=== PATIENT | male | born 1950 | race Caucasian/White ===

== ENCOUNTER 2020-02-13 16:47 | Inpatient (IN) | payer MEDICARE, MEDICAID, SELFPAY ==
--- NOTE | 2020-02-13 17:35 | XR_ITS ---
EXAMINATION: XR CHEST CLINICAL INFORMATION: Shortness of breath. Question COVID. COMPARISON: Chest radiograph dated 10/14/2017. TECHNIQUE: Frontal view of the chest was obtained. FINDINGS: Hypoinflation of the lungs with patchy bilateral airspace opacities. No pleural effusion or pneumothorax. Stable cardiomediastinal silhouette. XR/XR chest 1V IMPRESSION: Hypoinflation of the lungs with patchy bilateral airspace opacities. Findings can be seen in the setting of an infectious or inflammatory process, including viral pneumonia.
--- NOTE | 2020-02-13 17:35 | ECG_ITS ---
Test Reason : DYAPHORESIS Blood Pressure : / mmHG Vent. Rate : 076 BPM Atrial Rate : 076 BPM P-R Int : 224 ms QRS Dur : 080 ms QT Int : 402 ms P-R-T Axes : 039 -18 123 degrees QTc Int : 452 ms Sinus rhythm with 1st degree A-V block Inferior infarct (cited on or before 20-SEP-2013) T wave abnormality, consider lateral ischemia Abnormal ECG When compared with ECG of 13-FEB-2020 16:52, Premature ventricular complexes are no longer Present Referred By: Camron Chou Electronically Signed By:THONG WILKINS MD
[2020-02-13 17:36] VITALS: BP 159/85; PULSE 74; RESP 18; TEMP 37.2; O2SAT 96
[2020-02-13 17:51] VITALS: PULSE 73; O2SAT 100
[2020-02-13] MEDS: Albuterol Sulfate 90 MCG 8 GM INHALER 4 PUFF INHALE (17:51)
--- NOTE | 2020-02-13 17:55 | ED.SOB ---
HPI - SOB/Dyspnea General Chief Complaint: Dyspnea Stated Complaint: Difficulty Breathing Time Seen by Provider: 02/13/20 17:35 Source: patient Mode of arrival: ambulatory Limitations: no limitations History of Present Illness HPI Narrative: patient no significant lung problems in the past comes here for 2 weeks of worsening of shortness of breath with dry cough body aches fatigue. Patient denies anyone at home already with COVID. Patient was saturating 96% at room air temperature of 99 degree F patient does have a history of ischemic cardiomyopathy status post CABG 3 vessels with ejection fraction of 35% in echo of 2016 MD elicited complaint: shortness of breath and cough Onset (ago): week(s) (2) Severity: moderate Exacerbating factors: coughing Relieving factors: nothing Related Data Home Medications Medication Instructions Recorded Confirmed acetaminophen 1 tab PO Q6H PRN 02/13/20 02/13/20 insulin glargine [Lantus Solostar See Protocol SUBCUT DAILY 02/13/20 02/13/20 U-100 Insulin] lancets [FreeStyle Lancets] 02/13/20 02/13/20 lisinopril 1 tab PO BEDTIME 02/13/20 02/13/20 nitrofurantoin monohyd/m-cryst 1 cap PO Q12H 02/13/20 02/13/20 pen needle, diabetic [BD 02/13/20 02/13/20 Ultra-Fine Tamera Pen Needle] Previous Rx's Medication Instructions Recorded carvedilol 25 mg tablet 25 mg PO BID 90 Days #180 tab 01/05/20 Allergies Allergy/AdvReac Type Severity Reaction Status Date / Time No Known Allergies Allergy Unverified 12/09/19 18:14 [No Known Allergies*] Review of Systems Review of Systems: REVIEW OF SYSTEMS: Pertinent positives and negatives are stated above in the history. GEN: no fevers, chills, fatigue +++ HEENT: no nasal congestion, sore throat, ear pain NEURO: no headache, dizziness, focal weakness PULM: per HPI CV: no chest pain, palpitations, LE edema ABD: no abdominal pain, nausea, vomiting, diarrhea : no dysuria, urgency, frequency SKIN: no rash ROS otherwise negative x 10 PMFSH Past Medical History Medical History Ischemic cardiomyopathy Social History Social History Alcohol intake: never Smoked in Last 30 Days: No Use of substances other than those prescribed or required for medical reasons: No Advance Directives: No Advance Directives Information Provided: No Physical Exam Vital Signs: Vital Signs: Last Vital Signs Temp 97.6 F 02/14/20 00:19 Pulse 84 02/14/20 00:19 Resp 20 02/14/20 00:19 BP 170/86 H 02/14/20 00:19 Pulse Ox 99 02/14/20 00:19 Const: General: cooperative, healthy appearing, no acute distress and other ( dry cough++) Nutritional Appearance: average body habitus Orientation/consciousness: oriented to person, oriented to place and oriented to time Limitations: no limitations HENMT: Head: Yes normal to inspection Ears: hearing grossly normal bilaterally General nose exam: Normal external nose present Eyes: General: appearance normal, both eyes and all related structures Neck: Lymphatic: no lymphadenopathy noted Resp: Effort & Inspection: normal respiratory effort and able to speak in complete sentences Auscultation: crackles ( scattered crackles bilateral) bilateral, rhonchi, wheezes and no bronchial breath sounds Percussion: percussion normal Cardio: Rate: regular rate Rhythm: regular rhythm Heart sounds: S1 normal heart sound present and S2 normal heart sound present Peripheral pulses: Peripheral pulses 2+ throughout GI: Inspection: Yes normal to inspection Palpation (GI): Soft to palpation, Firmness to palpation present (GI), nontender and No hepatosplenomegaly present : General: Yes no CVA tenderness Back/Spine/Pelvis: Back: no CVA tenderness Thoracic/Lumbar Spine: thoracic and lumbar spine normal to inspection Skin: General skin exam: no rashes or lesions noted Neuro: General: oriented to person, oriented to place and oriented to time Extrem: General: Yes edema (2+) Course Reevaluation(s) Reevaluation #1: patient complaining of increased shortness of breath diaphoretic bus monitor showed sinus bradycardia with heart rate of 30s patient was very restless and dyspneic lung exam showed diffuse wheezing patient also did complain of chest pain repeat the EKG given nebulizing treatment and Lasix 40 mg IVP Time: 19:30 MDM - SOB/Dyspnea MDM Narrative Medical decision making narrative: patient with progressive worsening of shortness of breath for last 2 weeks chest x-ray with possible infiltrate CT scan showed interstitial edema patient WBC count has a normal COVID is negative in elevated BNP suggestive of CHF also patient has significant leg swelling will admit patient for IV diuretics Differential Diagnosis Differential diagnosis: Likely congestive heart failure and pneumonia Medical Records Attestation: I reviewed the patient's medical records. Lab Data Attestation: I reviewed the patient's lab results. Result diagrams: 02/13/20 18:21 02/13/20 18:21 Labs: Lab Results 02/13/20 02/13/20 02/13/20 Range/Units 18:21 18:21 18:21 WBC 8.0 (4.8-10.8) X10*3/uL RBC 4.25 L (4.60-5.80) X10*6/uL Hgb 10.7 L (14.0-18.0) g/dl Hct 35.2 L (42-52) % MCV 82.8 (80-98) fL MCH 25.2 L (27.0-33.0) pg MCHC 30.4 L (31.0-36.0) g/dl RDW 15.0 (11.0-16.0) % Plt Count 205 (160-400) X10*3/uL MPV 12.5 H (9.4-12.4) fL Immature Gran % (Auto) 0.1 (0.0-0.4) % Neut % (Auto) 64.7 (45-73) % Lymph % (Auto) 20.9 (20-40) % [place] % (Auto) 9.8 (2-11) % Eos % (Auto) 4.1 H (0-4) % Baso % (Auto) 0.4 (0-2) % Lymph # (Auto) 1.7 (1.2-4.9) X10*3/uL [place] # (Auto) 0.8 (0.1-1.2) X10*3/uL Eos # (Auto) 0.3 (0.0-0.4) X10*3/uL Baso # (Auto) 0.0 (0.0-0.2) X10*3/uL Abs Immat Gran (auto) 0.01 (0.00-0.03) X10*3/uL Absolute Neuts (auto) 5.2 (2.0-8.3) X10*3/uL Absolute Nucleated RBC 0.000 (0.0-0.012) X10*3/uL Nucleated RBC % (auto) 0.0 (0.0-0.2) /100WBC D-Dimer 332 NG/ML Hold Blue Top SEE NOTE Sodium 140 (135-145) mmol/L Potassium 4.9 (3.3-5.1) mmol/l Chloride 108 (96-108) mmol/L Carbon Dioxide 23 (22-29) mmol/L Anion Gap 14 (12-20) BUN 41 H (9-16) mg/dL Creatinine 2.08 H (0.5-1.4) mg/dL Estim Creat Clear Calc TNP Estimated GFR 32 Random Glucose 289 H (60-115) mg/dL Lactic Acid (0.5-2.0) mmol/L Calcium 8.8 (8.4-10.2) mg/dL Troponin I High Sens (<3.5-35.0) ng/L B-Natriuretic Peptide (<100) pg/mL Coronavirus (PCR) (Negative) Influenza Type A (PCR) (Negative) Influenza Type B (PCR) (Negative) RSV RNA Qual (PCR) (Negative) 02/13/20 02/13/20 02/13/20 Range/Units 18:21 18:21 18:22 WBC (4.8-10.8) X10*3/uL RBC (4.60-5.80) X10*6/uL Hgb (14.0-18.0) g/dl Hct (42-52) % MCV (80-98) fL MCH (27.0-33.0) pg MCHC (31.0-36.0) g/dl RDW (11.0-16.0) % Plt Count (160-400) X10*3/uL MPV (9.4-12.4) fL Immature Gran % (Auto) (0.0-0.4) % Neut % (Auto) (45-73) % Lymph % (Auto) (20-40) % [place] % (Auto) (2-11) % Eos % (Auto) (0-4) % Baso % (Auto) (0-2) % Lymph # (Auto) (1.2-4.9) X10*3/uL [place] # (Auto) (0.1-1.2) X10*3/uL Eos # (Auto) (0.0-0.4) X10*3/uL Baso # (Auto) (0.0-0.2) X10*3/uL Abs Immat Gran (auto) (0.00-0.03) X10*3/uL Absolute Neuts (auto) (2.0-8.3) X10*3/uL Absolute Nucleated RBC (0.0-0.012) X10*3/uL Nucleated RBC % (auto) (0.0-0.2) /100WBC D-Dimer NG/ML Hold Blue Top Sodium (135-145) mmol/L Potassium (3.3-5.1) mmol/l Chloride (96-108) mmol/L Carbon Dioxide (22-29) mmol/L Anion Gap (12-20) BUN (9-16) mg/dL Creatinine (0.5-1.4) mg/dL Estim Creat Clear Calc Estimated GFR Random Glucose (60-115) mg/dL Lactic Acid 0.7 (0.5-2.0) mmol/L Calcium (8.4-10.2) mg/dL Troponin I High Sens 13.1 (<3.5-35.0) ng/L B-Natriuretic Peptide 410 H (<100) pg/mL Coronavirus (PCR) NEGATIVE (Negative) Influenza Type A (PCR) NEGATIVE (Negative) Influenza Type B (PCR) NEGATIVE (Negative) RSV RNA Qual (PCR) NEGATIVE (Negative) 02/13/20 Range/Units 21:26 WBC (4.8-10.8) X10*3/uL RBC (4.60-5.80) X10*6/uL Hgb (14.0-18.0) g/dl Hct (42-52) % MCV (80-98) fL MCH (27.0-33.0) pg MCHC (31.0-36.0) g/dl RDW (11.0-16.0) % Plt Count (160-400) X10*3/uL MPV (9.4-12.4) fL Immature Gran % (Auto) (0.0-0.4) % Neut % (Auto) (45-73) % Lymph % (Auto) (20-40) % [place] % (Auto) (2-11) % Eos % (Auto) (0-4) % Baso % (Auto) (0-2) % Lymph # (Auto) (1.2-4.9) X10*3/uL [place] # (Auto) (0.1-1.2) X10*3/uL Eos # (Auto) (0.0-0.4) X10*3/uL Baso # (Auto) (0.0-0.2) X10*3/uL Abs Immat Gran (auto) (0.00-0.03) X10*3/uL Absolute Neuts (auto) (2.0-8.3) X10*3/uL Absolute Nucleated RBC (0.0-0.012) X10*3/uL Nucleated RBC % (auto) (0.0-0.2) /100WBC D-Dimer NG/ML Hold Blue Top Sodium (135-145) mmol/L Potassium (3.3-5.1) mmol/l Chloride (96-108) mmol/L Carbon Dioxide (22-29) mmol/L Anion Gap (12-20) BUN (9-16) mg/dL Creatinine (0.5-1.4) mg/dL Estim Creat Clear Calc Estimated GFR Random Glucose (60-115) mg/dL Lactic Acid (0.5-2.0) mmol/L Calcium (8.4-10.2) mg/dL Troponin I High Sens 13.2 (<3.5-35.0) ng/L B-Natriuretic Peptide (<100) pg/mL Coronavirus (PCR) (Negative) Influenza Type A (PCR) (Negative) Influenza Type B (PCR) (Negative) RSV RNA Qual (PCR) (Negative) ECG Data Attestation: I personally reviewed and interpreted this ECG as follows: Prior ECG tracings: available for review Interpretation: normal sinus rhythm with ventricular rate of 78 with PACs nonspecific T-wave abnormality in lateral leads Q-waves in inferior leads no acute change from the old EKG impression no acute ischemia Discharge Plan Discharge Clinical Impression: Congestive heart failure Qualifiers: Heart failure type: combined systolic and diastolic Heart failure chronicity: acute on chronic Qualified Code(s): I50.43 - Acute on chronic combined systolic (congestive) and diastolic (congestive) heart failure Patient Disposition: Admitted As Inpatient Interventions: Admission Worksheet (ED) Last Done: 02/14/20 00:15 Discharge Date/Time: 02/14/20 00:15
[2020-02-13 18:07] VITALS: BP 149/86; PULSE 72; RESP 20; TEMP 37.1; O2SAT 95
[2020-02-13 18:35] LABS: Basophils Percent Auto 0.4 % (0-2); Eosinophils Absolute Auto 0.3 X10*3/uL (0.0-0.4); Eosinophils Percent Auto 4.1 % (0-4); Hematocrit 35.2 % (42-52); Hemoglobin 10.7 g/dl (14.0-18.0); Imm Gran Abs Auto 0.01 X10*3/uL (0.00-0.03); Imm Gran Pct Auto 0.1 % (0.0-0.4); Lymphocytes Absolute Auto 1.7 X10*3/uL (1.2-4.9); Lymphocytes Percent Auto 20.9 % (20-40); Mean Corpuscular HGB Conc 30.4 g/dl (31.0-36.0); Mean Corpuscular Hemoglobin 25.2 pg (27.0-33.0); Mean Corpuscular Volume 82.8 fL (80-98); Mean Platelet Volume 12.5 fL (9.4-12.4); Monocytes Absolute Auto 0.8 X10*3/uL (0.1-1.2); Monocytes Percent Auto 9.8 % (2-11); Neutrophils Absolute Auto 5.2 X10*3/uL (2.0-8.3); Neutrophils Percent Auto 64.7 % (45-73); Platelet Count 205 X10*3/uL (160-400); Red Blood Count 4.25 X10*6/uL (4.60-5.80)
[2020-02-13 18:36] LABS: MANUAL DIFF FLAG NO
[2020-02-13 19:01] LABS: Lactic Acid 0.7 mmol/L (0.5-2.0)
[2020-02-13 19:03] LABS: Anion Gap 14 (12-20); Blood Urea Nitrogen 41 mg/dL (9-16); Calcium 8.8 mg/dL (8.4-10.2); Carbon Dioxide 23 mmol/L (22-29); Chloride 108 mmol/L (96-108); Estimated Glomerular Filt Rate 32; Glucose Random 289 mg/dL (60-115); Potassium 4.9 mmol/l (3.3-5.1); Sodium 140 mmol/L (135-145)
[2020-02-13 19:08] LABS: B Type Natriuretic Peptide 410 pg/mL (<100); Troponin-I High Sensitivity 13.1 ng/L (<3.5-35.0)
[2020-02-13 19:13] LABS: D Dimer 332 NG/ML
[2020-02-13] MEDS: cefTRIAXone sodium 1 GM in 0.9 % Sodium Chloride 50 ML IV (19:28)
[2020-02-13] MEDS: dexAMETHasone sod phosphate 4 MG/ML VIAL 10 MG IVPUSH (19:28)
--- NOTE | 2020-02-13 19:28 | CT_ITS ---
EXAMINATION: CT CHEST WITHOUT CONTRAST CLINICAL INFORMATION: Acute shortness of breath. Question COVID. COMPARISON: Chest radiograph done earlier the same day. TECHNIQUE: Multidetector volumetric CT imaging of the chest was done. Axial MIP volume rendering provided. Sagittal and coronal reformatted images were obtained. This CT examination was performed using dose optimization techniques as appropriate, variously including the following: *Automated exposure control. *Adjustment of mA and/or kV according to patient size (this includes techniques or standardized protocols for targeted exams where dose is matched to indication/reason for exam; i.e. extremities or head). *Use of iterative reconstruction technique. DLP: 227 mGy-cm FINDINGS: DRYING OVEN ATTENDANT: Hypoinflation of the lungs. Sternal wires. LUNGS: Evaluation somewhat limited secondary to respiratory motion. Diffuse interstitial prominence with bibasilar linear atelectasis versus very early infiltrates. No significant ground-glass airspace opacities which would be typical of viral pneumonia. No large pulmonary mass. MEDIASTINUM: No cardiomegaly. No pericardial effusion. Post CABG changes. Unremarkable thoracic aorta. Mildly prominent superior mediastinal lymph nodes, the largest of which measures 1.7 x 0.9 cm with associated calcification (axial image 13/51). Findings could indicate prior granulomatous disease. PLEURA: There is no pleural effusion. No pleural mass or thickening. AXILLA: No lymphadenopathy. UPPER ABDOMEN: Unremarkable. OSSEOUS STRUCTURES: No lytic or blastic osseous lesion. CT/CT chest wo con IMPRESSION: 1. Hypoinflation of the lungs with diffuse interstitial prominence and bibasilar linear atelectasis versus very early infiltrates. No significant ground-glass airspace opacity to indicate viral pneumonia. 2. Mildly prominent superior mediastinal lymph nodes, some of which appear partially calcified. Findings could indicate prior granulomatous disease. 3. Post CABG changes.
--- NOTE | 2020-02-13 19:44 | PC.NURSE ---
patient medicated per emar, with antibotic and steriod. patient asking to use the urinal. tech checking on patient to collect urine sample. patient diaphoretic and has a change in breathing pattern. heart rate bradycardiac on monitor to 40's. patient placed on zoll and into the recovery positon, placed on o2 via non-rebreather. provider called to bedside. orders for lasix and breathing treatment.
[2020-02-13] MEDS: Furosemide 40 MG/4 ML VIAL IVPUSH (19:51)
[2020-02-13] MEDS: Albuterol/Iprat 2.5/0.5MG 3 ML AMPUL.NEB INHALE (19:59)
[2020-02-13] MEDS: Albuterol Sulfate (0.083%) 2.5 MG/3 ML VIAL.NEB 5 MG INHALE (19:59)
--- NOTE | 2020-02-13 20:05 | ECG_ITS ---
Test Reason : DYSPNEA Blood Pressure : / mmHG Vent. Rate : 078 BPM Atrial Rate : 078 BPM P-R Int : 204 ms QRS Dur : 082 ms QT Int : 384 ms P-R-T Axes : 027 -16 121 degrees QTc Int : 437 ms Sinus rhythm with sinus arrhythmia with occasional Premature ventricular complexes Inferior infarct (cited on or before 20-SEP-2013) T wave abnormality, consider lateral ischemia Abnormal ECG When compared with ECG of 26-DEC-2018 15:03, Premature ventricular complexes are now Present Referred By: Camron Chou Electronically Signed By:THONG WILKINS MD
[2020-02-13 20:21] VITALS: BP 135/73; PULSE 77; RESP 22; O2SAT 93
[2020-02-13] MEDS: Nitroglycerin 2 % Oint 1 GM Packet 0.5 INCH TRANSDERMA (20:30)
[2020-02-13 20:47] LABS: Influenza A PCR NEGATIVE (Negative); Influenza B PCR NEGATIVE (Negative); Resp Syncy Virus RNA Qual PCR NEGATIVE (Negative); SARS COV2 PCR INHOUSE NEGATIVE (Negative)
[2020-02-13 22:11] LABS: Troponin-I High Sensitivity 13.2 ng/L (<3.5-35.0)
[2020-02-13 22:51] VITALS: BMI 26.8
[2020-02-14] VITALS (13 sets, daily range): BP systolic 117–178; BP diastolic 63–94; PULSE 76–94; RESP 18–20; TEMP 36.3–37.2; O2SAT 94–100; BMI 26.6; BMI 26.3
--- NOTE | 2020-02-14 | XR_ITS ---
EXAMINATION: XR CHEST CLINICAL INFORMATION: Shortness of breath COMPARISON: 02/13/2020 TECHNIQUE: Frontal view of the chest was obtained. FINDINGS: Status post median sternotomy and CABG. Stable prominence of the cardiomediastinal silhouette. Low lung volumes. Elevation of the right hemidiaphragm. Patchy opacities in the bilateral lower lung san. No pneumothorax. No definite effusion. XR/XR chest 1V IMPRESSION: Low lung volumes. Patchy opacities in both lung bases may reflect atelectasis although developing infiltrate is not excluded.
[2020-02-14] MEDS: 0.9 % Sodium Chloride Flush 3 ML SYRINGE IVFLUSH ×4 (00:48→20:24)
[2020-02-14] MEDS: Enoxaparin Sodium 40 MG/0.4 ML SYRINGE SUBCUT ×2 (00:48→23:52)
[2020-02-14 01:27] LABS: Troponin-I High Sensitivity 15.5 ng/L (<3.5-35.0)
--- NOTE | 2020-02-14 02:19 | P.HPHOSP_ITS ---
History of Present Illness Date of Service: 02/13/20 Chief Complaint: SOB This is a 69-year-old [place]ian speaking man with a history of diabetes, hypertension and CKD who presents to the hospital with shortness of breath. History is obtained mostly from ED physician S patient does not speak [place] and he start getting very anxious as soon as I ask him any questions. No restorative rehab aide present in with speaks Slovenian. history is obtained mostly from the ED physician. Per ER report from patient's family patient has been having difficulty breathing for the past 2 weeks as well as dry cough. He also has lower extremity swelling. No other formation review of system can be obtained from the patient at this time. On arrival to the ED patient hemodynamically stable labs are significant for hemoglobin of 10.7, BUN of 43, creatinine of 2.08 with a baseline around 1.3-1.5, BNP of 410, COVID-19 negative, influenza A/B and RSV negative. CT of the chest demonstrated hypoinflation of the lungs with diffuse social prominence and the bibasilar linear atelectasis versus very early infiltrate. No significant ground-glass airspace opacities to indicate viral pneumonia unable to obtain past medical history as patient is not cooperating with my exam, unable to give much history, does not speak [place] and becomes very anxious with every question asked Review of Systems Review of Systems: Yes Unobtainable due to mental condition [facility] Medical History Chronic kidney disease (CKD) Diabetes mellitus Hypertension Ischemic cardiomyopathy Surgical History Hx of CABG Social History Household Members: None Housing: House Do you presently have visiting nurse or other home services: No Alcohol intake: never Smoking Status: Never smoker Smoked in Last 30 Days: No Use of substances other than those prescribed or required for medical reasons: No Advance Directives: No Advance Directives Information Provided: No Advance Directives on File: No Do you have thoughts of harming others: None Do you have a plan to hurt others: No Plan Recently lost weight without trying: No Meds Allergies Allergy/AdvReac Type Severity Reaction Status Date / Time No Known Allergies Allergy Verified 02/14/20 01:28 [No Known Allergies*] Home Medications Medication Instructions Recorded Confirmed Type acetaminophen 1 tab PO Q6H PRN 02/13/20 02/13/20 History insulin glargine [Lantus Solostar See Protocol SUBCUT DAILY 02/13/20 02/13/20 History U-100 Insulin] lancets [FreeStyle Lancets] 02/13/20 02/13/20 History lisinopril 1 tab PO BEDTIME 02/13/20 02/13/20 History nitrofurantoin monohyd/m-cryst 1 cap PO Q12H 02/13/20 02/13/20 History pen needle, diabetic [BD 02/13/20 02/13/20 History Ultra-Fine Tamera Pen Needle] Physical Exam Vital Signs and Narrative: Vital Signs: Last Vital Signs Temp 97.6 F 02/14/20 00:19 Pulse 84 02/14/20 00:19 Resp 20 02/14/20 00:19 BP 170/86 H 02/14/20 00:19 Pulse Ox 99 02/14/20 00:19 Body Mass Index 26.6 Const: General: no acute distress and anxious Orientation/consciousness: patient oriented x3 Eyes: General: appearance normal, both eyes and all related structures Pupils: Equal, round and reactive pupils present Resp: Effort & Inspection: normal respiratory effort and able to speak in complete sentences Auscultation: clear to auscultation bilaterally Cardio: Rate: regular rate Rhythm: regular rhythm GI: Palpation (GI): Soft to palpation Auscultation: normal bowel sounds Skin: General skin exam: no rashes or lesions noted Neuro: General: patient oriented x3 Cranial nerves: Yes Equal, round and reactive pupils present Cognition (Neuro): normal cognition Extrem: Other: 2+ pedal edema General: Yes normal to inspection Results Labs CBC and Chem 7: 02/14/20 03:59 02/14/20 03:59 Labs: Laboratory Results - last 24 hr 02/13/20 02/13/20 02/13/20 18:21 18:21 18:21 MCV 82.8 MCH 25.2 L MCHC 30.4 L RDW 15.0 Plt Count 205 MPV 12.5 H Immature Gran % (Auto) 0.1 Neut % (Auto) 64.7 Lymph % (Auto) 20.9 [place] % (Auto) 9.8 Eos % (Auto) 4.1 H Baso % (Auto) 0.4 Lymph # (Auto) 1.7 [place] # (Auto) 0.8 Eos # (Auto) 0.3 Baso # (Auto) 0.0 Abs Immat Gran (auto) 0.01 Absolute Neuts (auto) 5.2 Absolute Nucleated RBC 0.000 Nucleated RBC % (auto) 0.0 D-Dimer 332 Hold Blue Top SEE NOTE Anion Gap 14 Estim Creat Clear Calc TNP Estimated GFR 32 Random Glucose 289 H Lactic Acid Calcium 8.8 Troponin I High Sens B-Natriuretic Peptide Coronavirus (PCR) Influenza Type A (PCR) Influenza Type B (PCR) RSV RNA Qual (PCR) 02/13/20 02/13/20 02/13/20 18:21 18:21 18:22 MCV MCH MCHC RDW Plt Count MPV Immature Gran % (Auto) Neut % (Auto) Lymph % (Auto) [place] % (Auto) Eos % (Auto) Baso % (Auto) Lymph # (Auto) [place] # (Auto) Eos # (Auto) Baso # (Auto) Abs Immat Gran (auto) Absolute Neuts (auto) Absolute Nucleated RBC Nucleated RBC % (auto) D-Dimer Hold Blue Top Anion Gap Estim Creat Clear Calc Estimated GFR Random Glucose Lactic Acid 0.7 Calcium Troponin I High Sens 13.1 B-Natriuretic Peptide 410 H Coronavirus (PCR) NEGATIVE Influenza Type A (PCR) NEGATIVE Influenza Type B (PCR) NEGATIVE RSV RNA Qual (PCR) NEGATIVE 02/13/20 02/14/20 21:26 00:47 MCV MCH MCHC RDW Plt Count MPV Immature Gran % (Auto) Neut % (Auto) Lymph % (Auto) [place] % (Auto) Eos % (Auto) Baso % (Auto) Lymph # (Auto) [place] # (Auto) Eos # (Auto) Baso # (Auto) Abs Immat Gran (auto) Absolute Neuts (auto) Absolute Nucleated RBC Nucleated RBC % (auto) D-Dimer Hold Blue Top Anion Gap Estim Creat Clear Calc Estimated GFR Random Glucose Lactic Acid Calcium Troponin I High Sens 13.2 15.5 B-Natriuretic Peptide Coronavirus (PCR) Influenza Type A (PCR) Influenza Type B (PCR) RSV RNA Qual (PCR) Imaging Radiologist's Impressions: Impressions Chest X-Ray 02/13/20 17:35 IMPRESSION: Hypoinflation of the lungs with patchy bilateral airspace opacities. Findings can be seen in the setting of an infectious or inflammatory process, including viral pneumonia. Chest CT 02/13/20 19:28 IMPRESSION: 1. Hypoinflation of the lungs with diffuse interstitial prominence and bibasilar linear atelectasis versus very early infiltrates. No significant ground-glass airspace opacity to indicate viral pneumonia. 2. Mildly prominent superior mediastinal lymph nodes, some of which appear partially calcified. Findings could indicate prior granulomatous disease. 3. Post CABG changes. Assessment and Plan (1) Acute exacerbation of CHF (congestive heart failure): Status: Acute (2) Ischemic cardiomyopathy: Status: Acute (3) Acute kidney injury superimposed on CKD: Status: Acute (4) Diabetes mellitus: Status: Acute (5) Hypertension: Status: Acute this is a 69-year-old male who presents to the hospital with shortness of breath and a dry cough found to have CHF exacerbation # dyspnea - most likely secondary to CHF exacerbation, no recorded hypoxia, has elevated BNP, has history of ischemic cardiomyopathy, chest CT showing atelectasis versus early infiltrate - patient afebrile, no leukocytosis to indicate acute pneumonia, COVID-19 negative - has lower extremity edema - no troponin Plan: - Will start patient on Lasix 40 IV b.i.d. - strict I&O, daily weight, low-sodium diet - echocardiogram - cardiology consult # Dean and CKD - most likely prerenal in the setting of heart failure - will give Lasix, and follow BMP # hypertension - continue carvedilol and lisinopril # diabetes - diabetic diet - low-dose sliding scale insulin requiring baby DVT prophylaxis: Lovenox
[2020-02-14 04:12] LABS: Basophils Percent Auto 0.1 % (0-2); Hematocrit 35.1 % (42-52); Hemoglobin 10.7 g/dl (14.0-18.0); Imm Gran Abs Auto 0.04 X10*3/uL (0.00-0.03); Imm Gran Pct Auto 0.4 % (0.0-0.4); Lymphocytes Absolute Auto 0.7 X10*3/uL (1.2-4.9); Lymphocytes Percent Auto 7.1 % (20-40); Mean Corpuscular HGB Conc 30.5 g/dl (31.0-36.0); Mean Corpuscular Hemoglobin 24.8 pg (27.0-33.0); Mean Corpuscular Volume 81.4 fL (80-98); Monocytes Absolute Auto 0.1 X10*3/uL (0.1-1.2); Monocytes Percent Auto 0.5 % (2-11); Neutrophils Absolute Auto 9.5 X10*3/uL (2.0-8.3); Neutrophils Percent Auto 91.9 % (45-73); Platelet Count 199 X10*3/uL (160-400); Red Blood Count 4.31 X10*6/uL (4.60-5.80); Red Cell Distribution Width 14.8 % (11.0-16.0); SCAN SMEAR FLAG 1; White Blood Count 10.3 X10*3/uL (4.8-10.8)
[2020-02-14 04:17] LABS: MANUAL DIFF FLAG SCAN
[2020-02-14 04:33] LABS: SLIDE REVIEW VERIFIED
[2020-02-14 04:50] LABS: Anion Gap 17 (12-20); Blood Urea Nitrogen 43 mg/dL (9-16); Calcium 8.8 mg/dL (8.4-10.2); Carbon Dioxide 22 mmol/L (22-29); Chloride 105 mmol/L (96-108); Creatinine Clr Calc Pharmacy 34.7; Estimated Glomerular Filt Rate 34; Glucose Random 315 mg/dL (60-115); Sodium 139 mmol/L (135-145)
[2020-02-14 08:19] LABS: Glucose, Whole Blood 314 mg/dL (60-115)
[2020-02-14] MEDS: Insulin Lispro 100 UNIT/ML 3 ML VIAL SUBCUT ×4 (08:34→20:24)
[2020-02-14] MEDS: Insulin Glargine,Hum.rec.anlog 100 UNIT/ML 10 ML VIAL 10 UNIT SUBCUT (08:35)
[2020-02-14] MEDS: carvediloL 25 MG TABLET PO ×2 (08:35→20:24)
[2020-02-14] MEDS: Furosemide 40 MG/4 ML VIAL IVPUSH ×2 (08:36→20:23)
--- NOTE | 2020-02-14 09:20 | P.CDIC_ITS ---
CDI Concurrent Query Service Date: 02/14/20 Documentation Clarification: Please clarify if you are treating a proba ble/suspected/likely or confirmed: Specifics: Acute on chronic kidney injury Stage 1-5 Please specify if known Provider Response: CKD Stage 3 PLEASE DO NOT DELETE/MODIFY EXISTING CONTENT Additional information is needed in order to code to the highest accuracy and appropriate Severity of Illness (SOI). Please clarify the information noted below in your progress notes and discharge summary. Risk Factors/Clinical Indicators/Treatments History of CKD Assessment/plan: CA on CKD Most likely superimposed in the setting of heart failure. give lasix follow BMP BUN 43 CR 1.95 GFR 34 CDS: Angy Fleming CCS, CDIS Contact Number: [phone] Please Review the information above and exercise your independent professional judgment in responding to the query. If you concur, pleas document in the PROGRESS NOTES and DISCHARGE SUMMARY. If you do not agree with the query, please document in the query above. THIS QUERY IS PART OF THE PERMANENT MEDICAL RECORD
[2020-02-14 11:18] LABS: Glucose, Whole Blood 398 mg/dL (60-115)
[2020-02-14] MEDS: Isosorbide Mononitrate 30 MG TAB.ER.24H PO (11:57)
[2020-02-14 12:26] LABS: Glucose, Whole Blood 381 mg/dL (60-115)
--- NOTE | 2020-02-14 12:55 | P.CONCA_ITS ---
History of Present Illness History of Present Illness Date of Consult: February 14, 2020 Chief complaint: SOB,CHF EXACERBATION Narrative: [age] year old gentleman who is known to Dr. Doan for known history of coronary artery disease with previous inferior and inferolateral wall motion abnormality with EF of 40 45%. This was due to a prior myocardial infarction. He also has history of diabetes, hyperlipidemia, hypertension, coronary disease with the DC in November 2011 when he underwent cardiac catheterization and urgent CABG x3 with GUILLEN to LAD, saphenous vein graft to OM and right posterolateral branch. He is presenting with the progressive dyspnea over the last week. He has orthopnea. No chest discomfort. He denied any significant edema or abdominal distension. He is saying he has cut back on his salt intake but has not completely omitted. He is compliant with medications reportedly. Clinically was thought to be in heart failure and was given diuretics and is improving at this point. Review of Systems Review of Systems: Dyspnea, no chest pain Yes all other systems are reviewed and are negative FOR[facility]LY [facility] Past Medical History Medical History (Updated 02/14/20 @ 06:00 by Albert Ho MD) Chronic kidney disease (CKD) Diabetes mellitus Hypertension Ischemic cardiomyopathy Surgical History Surgical History Hx of CABG Social History Social History Household Members: None Housing: House Do you presently have visiting nurse or other home services: No Alcohol intake: never Smoking Status: Never smoker Smoked in Last 30 Days: No Use of substances other than those prescribed or required for medical reasons: No Currently Displaying Signs/Symptoms of Drug Intoxication Withdrawal: No Advance Directives: No Advance Directives Information Provided: No Advance Directives on File: No Do you have thoughts of harming others: None Do you have a plan to hurt others: No Plan Recently lost weight without trying: No Meds Allergies Allergy/AdvReac Type Severity Reaction Status Date / Time No Known Allergies Allergy Verified 02/14/20 01:28 [No Known Allergies*] Home Medications Medication Instructions Recorded Confirmed Type acetaminophen 1 tab PO Q6H PRN 02/13/20 02/13/20 History insulin glargine [Lantus Solostar See Protocol SUBCUT DAILY 02/13/20 02/13/20 History U-100 Insulin] lancets [FreeStyle Lancets] 02/13/20 02/13/20 History lisinopril 1 tab PO BEDTIME 02/13/20 02/13/20 History nitrofurantoin monohyd/m-cryst 1 cap PO Q12H 02/13/20 02/13/20 History pen needle, diabetic [BD 02/13/20 02/13/20 History Ultra-Fine Tamera Pen Needle] Physical Exam Vital Signs: Vital Signs: Last Vital Signs Temp 97.3 F 02/14/20 11:49 Pulse 87 02/14/20 11:57 Resp 20 02/14/20 11:49 BP 117/66 02/14/20 11:57 Pulse Ox 98 02/14/20 11:49 Body Mass Index 26.3 GENERAL APPEARANCE: in no acute distress, well developed, well nourished. HEENT: unremarkable. HEAD: normocephalic, atraumatic. NECK/THYROID: no carotid bruit, JVD 8-10 cm water. SKIN: no suspicious lesions, warm and dry. HEART: no murmurs, regular rate and rhythm, S1, S2 normal. LUNGS: clear to auscultation bilaterally. ABDOMEN: mildly distended, nontender EXTREMITIES: no clubbing, cyanosis, or edema. PERIPHERAL PULSES: equal. NEUROLOGIC: alert and oriented. PSYCH: mood/affect full range. Results Labs and Meds Result diagrams: 02/14/20 03:59 02/14/20 03:59 Lab results: Laboratory Results - last 24 hr 02/13/20 02/13/20 02/13/20 18:21 18:21 18:21 WBC 8.0 RBC 4.25 L Hgb 10.7 L Hct 35.2 L MCV 82.8 MCH 25.2 L MCHC 30.4 L RDW 15.0 Plt Count 205 MPV 12.5 H Immature Gran % (Auto) 0.1 Neut % (Auto) 64.7 Lymph % (Auto) 20.9 Bowie % (Auto) 9.8 Eos % (Auto) 4.1 H Baso % (Auto) 0.4 Lymph # (Auto) 1.7 Bowie # (Auto) 0.8 Eos # (Auto) 0.3 Baso # (Auto) 0.0 Abs Immat Gran (auto) 0.01 Absolute Neuts (auto) 5.2 Absolute Nucleated RBC 0.000 Nucleated RBC % (auto) 0.0 Smear Tech's Comments D-Dimer 332 Hold Blue Top SEE NOTE Sodium 140 Potassium 4.9 Chloride 108 Carbon Dioxide 23 Anion Gap 14 BUN 41 H Creatinine 2.08 H Estim Creat Clear Calc TNP Estimated GFR 32 POC Glucose Random Glucose 289 H Lactic Acid Calcium 8.8 Troponin I High Sens B-Natriuretic Peptide Coronavirus (PCR) Influenza Type A (PCR) Influenza Type B (PCR) RSV RNA Qual (PCR) 02/13/20 02/13/20 02/13/20 18:21 18:21 18:22 WBC RBC Hgb Hct MCV MCH MCHC RDW Plt Count MPV Immature Gran % (Auto) Neut % (Auto) Lymph % (Auto) Bowie % (Auto) Eos % (Auto) Baso % (Auto) Lymph # (Auto) Bowie # (Auto) Eos # (Auto) Baso # (Auto) Abs Immat Gran (auto) Absolute Neuts (auto) Absolute Nucleated RBC Nucleated RBC % (auto) Smear Tech's Comments D-Dimer Hold Blue Top Sodium Potassium Chloride Carbon Dioxide Anion Gap BUN Creatinine Estim Creat Clear Calc Estimated GFR POC Glucose Random Glucose Lactic Acid 0.7 Calcium Troponin I High Sens 13.1 B-Natriuretic Peptide 410 H Coronavirus (PCR) NEGATIVE Influenza Type A (PCR) NEGATIVE Influenza Type B (PCR) NEGATIVE RSV RNA Qual (PCR) NEGATIVE 02/13/20 02/14/20 02/14/20 21:26 00:47 03:59 WBC 10.3 RBC 4.31 L Hgb 10.7 L Hct 35.1 L MCV 81.4 MCH 24.8 L MCHC 30.5 L RDW 14.8 Plt Count 199 MPV 12.0 Immature Gran % (Auto) 0.4 Neut % (Auto) 91.9 H Lymph % (Auto) 7.1 L Bowie % (Auto) 0.5 L Eos % (Auto) 0.0 Baso % (Auto) 0.1 Lymph # (Auto) 0.7 L Bowie # (Auto) 0.1 Eos # (Auto) 0.0 Baso # (Auto) 0.0 Abs Immat Gran (auto) 0.04 H Absolute Neuts (auto) 9.5 H Absolute Nucleated RBC 0.000 Nucleated RBC % (auto) 0.0 Smear Tech's Comments VERIFIED D-Dimer Hold Blue Top Sodium Potassium Chloride Carbon Dioxide Anion Gap BUN Creatinine Estim Creat Clear Calc Estimated GFR POC Glucose Random Glucose Lactic Acid Calcium Troponin I High Sens 13.2 15.5 B-Natriuretic Peptide Coronavirus (PCR) Influenza Type A (PCR) Influenza Type B (PCR) RSV RNA Qual (PCR) 02/14/20 02/14/20 02/14/20 03:59 08:15 11:13 WBC RBC Hgb Hct MCV MCH MCHC RDW Plt Count MPV Immature Gran % (Auto) Neut % (Auto) Lymph % (Auto) Bowie % (Auto) Eos % (Auto) Baso % (Auto) Lymph # (Auto) Bowie # (Auto) Eos # (Auto) Baso # (Auto) Abs Immat Gran (auto) Absolute Neuts (auto) Absolute Nucleated RBC Nucleated RBC % (auto) Smear Tech's Comments D-Dimer Hold Blue Top Sodium 139 Potassium 5.0 Chloride 105 Carbon Dioxide 22 Anion Gap 17 BUN 43 H Creatinine 1.95 H Estim Creat Clear Calc 34.7 Estimated GFR 34 POC Glucose 314 H 398 H* Random Glucose 315 H Lactic Acid Calcium 8.8 Troponin I High Sens B-Natriuretic Peptide Coronavirus (PCR) Influenza Type A (PCR) Influenza Type B (PCR) RSV RNA Qual (PCR) 02/14/20 12:22 WBC RBC Hgb Hct MCV MCH MCHC RDW Plt Count MPV Immature Gran % (Auto) Neut % (Auto) Lymph % (Auto) Bowie % (Auto) Eos % (Auto) Baso % (Auto) Lymph # (Auto) Bowie # (Auto) Eos # (Auto) Baso # (Auto) Abs Immat Gran (auto) Absolute Neuts (auto) Absolute Nucleated RBC Nucleated RBC % (auto) Smear Tech's Comments D-Dimer Hold Blue Top Sodium Potassium Chloride Carbon Dioxide Anion Gap BUN Creatinine Estim Creat Clear Calc Estimated GFR POC Glucose 381 H* Random Glucose Lactic Acid Calcium Troponin I High Sens B-Natriuretic Peptide Coronavirus (PCR) Influenza Type A (PCR) Influenza Type B (PCR) RSV RNA Qual (PCR) EKG Interpretation EKG Comments: ECG from February 12 at 16:52 showing sinus rhythm, normal axis, premature ventricular complexes, inferior infarct, lateral T-wave changes with differentials of ischemia versus hypertrophy. Assessment and Plan (1) Hypertension: Status: Acute (2) Acute kidney injury superimposed on CKD: Status: Acute (3) Congestive heart failure: Qualifiers: Heart failure chronicity: acute on chronic Heart failure type: combined systolic and diastolic Qualified Code(s): I50.43 - Acute on chronic combined systolic (congestive) and diastolic (congestive) heart failure Status: Acute (4) Ischemic cardiomyopathy: Status: Acute very pleasant 69-year-old gentleman here for dyspnea and clinical heart f ailure. He has background history of ischemic cardiomyopathy and previous bypass surgery. No ischemic symptoms right now. His blood pressure was elevated on exam. Clinically not significantly volume overloaded right now. I think we continue the IV Lasix today. I am adding 30 mg of Imdur to his regimen. Continue the other medications as before. If clinically improves by tomorrow then he can be changed to 40 mg once a day Lasix. He can have further testing including echocardiography as outpatient. We will follow along with you. Thank you for allowing me to participate in the care of your patient. Please feel free to contact me if you have any questions. Procedures Abscess I/D Date of Service: 02/14/20
--- NOTE | 2020-02-14 13:06 | MHC.CM.PN ---
Addendum entered by Claudia Wells 02/14/20 14:09: CM spoke with PCP's office and was told [facility], [facility] Original Note: CM spoke with patient's dtr Evelio [phone] since patient does not speak portuguese. Dtr reports patient amb with a cane and lives with his and dtr. Dtr reports patient has a VNA services, unsure of agency. PCP is Dr Cecille Anderson [phone]. TC to PCP to ask for VNA agency. Patient does not have a HCP and declines filling one out today. Discussed discharge plan, home with resumption of VNA services. Dtr Evelio will provide transportation. CM will continue to follow patient for discharge needs.
[2020-02-14 13:52] LABS: Glucose, Whole Blood 357 mg/dL (60-115)
--- NOTE | 2020-02-14 14:20 | P.PNIM_ITS ---
Subjective Subjective Date of Service: 02/15/20 Interval History: patient resting in bed denies shortness of breath, denies chest pain but while talking patient appears short of breath, later in afternoon patient was noted to be diaphoretic and sob , denies chest pain, denies fever no headache no other acute symptoms. Review of Systems General no headache no dizziness ,no fever chills. CVS no chest pain, no palpitation. Respiratory no cough, positive shortness of breath Gastrointestinal no nausea, no vomiting, no abdominal pain Physical Exam Vital Signs: Vital Signs: Last Vital Signs Temp 97.3 F 02/14/20 11:49 Pulse 87 02/14/20 11:57 Resp 20 02/14/20 11:49 BP 117/66 02/14/20 11:57 Pulse Ox 98 02/14/20 11:49 Body Mass Index 26.3 General mild respiratory distress Neck is supple no JVD. CVS regular rate rhythm, Respiratory bibasilar rales, mild respiratory distres Gastrointestinal abdomen soft, nontender, bowel sounds audible. Extremities bilateral pitting edema Neuro nonfocal ,speech clear. Skin no rash Objective Data Current Medications Generic Name Dose Route Start Last Admin Trade Name Freq PRN Reason Stop Dose Admin Acetaminophen 650 mg 02/14/20 00:14 Acetaminophen 325 Mg Tablet PO Q6H PRN Pain, Mild (Pain Scale 1-3) Carvedilol 25 mg 02/14/20 09:00 02/14/20 08:35 Carvedilol 25 Mg Tablet PO 25 mg BID MARTITA Administration Protocol Docusate Sodium 100 mg 02/14/20 00:14 Docusate Sodium 100 Mg Capsule PO DAILY PRN Constipation Enoxaparin Sodium 40 mg 02/14/20 00:14 02/14/20 00:48 Enoxaparin Sodium 40 Mg/0.4 Ml Syringe SUBCUT 40 mg Q24H MARTITA Administration Furosemide 40 mg 02/14/20 08:00 02/14/20 08:36 Furosemide 40 Mg/4 Ml Vial IVPUSH 40 mg Q12H MARTITA Administration Protocol Insulin Glargine 10 unit 02/14/20 09:00 02/14/20 08:35 Insulin Glargine,Hum.Rec.Anlog 100 Unit/Ml 10 Ml Vial SUBCUT 10 unit DAILY MARTITA Administration Insulin Human Lispro 0 unit 02/14/20 07:30 02/14/20 11:57 Insulin Lispro 100 Unit/Ml 3 Ml Vial SUBCUT 10 unit QIDACHS [facility] Administration Protocol Isosorbide Mononitrate 30 mg 02/14/20 11:15 02/14/20 11:57 Isosorbide Mononitrate 30 Mg Tab.Er.24h PO 30 mg DAILY MARTITA Administration Protocol Lisinopril 40 mg 02/14/20 21:00 Lisinopril 40 Mg Tablet PO BEDTIME [facility] Protocol Ondansetron HCl 4 mg 02/14/20 00:14 Ondansetron Hcl 4 Mg/2 Ml Vial IVPUSH Q8H PRN Nausea and Vomiting Sodium Chloride 3 ml 02/14/20 00:14 02/14/20 08:34 0.9 % Sodium Chloride Flush 3 Ml Syringe IVFLUSH 3 ml QSHIFT [facility] Administration Labs CBC & Chem 7: 02/14/20 03:59 02/15/20 09:14 Assessment and Plan (1) Acute exacerbation of CHF (congestive heart failure): Status: Acute (2) Hypertension: Status: Acute (3) Diabetes mellitus: Status: Acute (4) Acute kidney injury superimposed on CKD: Status: Acute (5) Ischemic cardiomyopathy: Status: Acute Assessment and Plan: this is a 69-year-old male who presents to the hospital with shortness of breath and a dry cough found to have CHF exacerbation # acute on chronic CHF exacerbation due to ischemic cardiomyopathy - continue IV Lasix 40 mg b.i.d., output not accurately measured, patient clinically feels better denies chest pain but appears short of breath and was diaphoretic repeat EKG shows T-wave inversion lateral lead, will obtain echocardiogram, troponin on admission within normal range, will repeat troponin, continue Coreg, lisinopril, Imdur added by Cardiology, follow clinical course closely chest CT showing atelectasis versus early infiltrate, patient afebrile, no leukocytosis to indicate acute pneumonia, COVID-19 negative. # Dean on chronic kidney disease stage 3 - most likely prerenal in the setting of heart failure, repeat creatinine remains the same will follow BMP while being diuresed # hypertension - initially BP elevated currently trending down,continue carvedilol and lisinopril, Imdur added follow BP closely # diabetes blood sugar noted to be elevated in 300 range on insulin sliding scale and Lantus will increase dose of insulin sliding scale and add diabetic diet. DVT prophylaxis: Lovenox
[2020-02-14 16:03] LABS: Glucose, Whole Blood 357 mg/dL (60-115)
[2020-02-14 16:42] LABS: Troponin-I High Sensitivity 14.5 ng/L (<3.5-35.0)
--- NOTE | 2020-02-14 16:50 | PC.NURSE ---
pt noted to be laying on side of bed, diaphoretic. Blood sugar continued to be increased in 300s after receiving 10 units of Humalog per sliding scale. SP02 99% RA, DAOMN with fine crackles at right lung base. SR on tele. MD made aware, EKG and Troponin level ordered. MD at bedside, Pt states he does get diaphoretic at home when he feels SOB. Pt no longer diaphoretic. Pt refusing to urinate in garbage collector located in toilet, therefore unable to obtain accurate output.
[2020-02-14 17:37] LABS: Glucose, Whole Blood 343 mg/dL (60-115)
[2020-02-14 20:19] LABS: Glucose, Whole Blood 184 mg/dL (60-115)
[2020-02-14] MEDS: lisinopriL 40 MG TABLET PO (20:23)
[2020-02-14] MEDS: Albuterol/Iprat 2.5/0.5MG 3 ML AMPUL.NEB INHALE (20:43)
[2020-02-15] VITALS (12 sets, daily range): BP systolic 106–167; BP diastolic 57–82; PULSE 65–77; RESP 17–20; TEMP 34.6–36.9; O2SAT 93–99; BMI 25.5
[2020-02-15 00:23] LABS: Glucose, Whole Blood 41 mg/dL (60-115)
--- NOTE | 2020-02-15 00:28 | PC.NURSE ---
PT FOUND TO BE EXTREMELY DIAPHORETIC AN LETHARGIC. BLOOD SUGAR CHECKED AND WAS 41. PT GIVEN OJ AND 1/2 AMP D50. VSS. NOTIFIED. PT RECEIEVED 4 UNITS LISPRO INSULIN PER SLIDING SCALE AT HS. WILL RECHECK POC IN 20 MINS. PT MORE ALERT AND STABLE AT THIS TIME. WILL CONTINUE TO MONITOR.
[2020-02-15 01:07] LABS: Glucose, Whole Blood 122 mg/dL (60-115)
[2020-02-15] MEDS: Albuterol/Iprat 2.5/0.5MG 3 ML AMPUL.NEB INHALE (01:40)
[2020-02-15] MEDS: Morphine Sulfate 4 MG/ML CARTRIDGE IVPUSH (03:37)
[2020-02-15] MEDS: Furosemide 40 MG/4 ML VIAL IVPUSH ×2 (03:38→07:51)
--- NOTE | 2020-02-15 05:01 | PC.NURSE ---
PT NOTED TO HAVE SEVERE CARDIAC WHEEZE AND DYSPNEA. RR LABORED. NO HYPOXIA NOTED. O2 SAT 98% 4L. UPDRAFTS TREATMENTS INEFFECTIVE. MD NOTIFIED. PT GIVEN 4MG IV MORPHINE AND 40 MG IV LASIX X1. PT SLEEPING SHORTLY AFTER. DYSPNEA HAS SUBSIDED AND WHEEZE HAS IMPROVED. NSR ON THE MONITOR. VSS. WILL CONTINUE TO MONITOR. CALL MILAN IN REACH. BED ALARM ON.
[2020-02-15 07:19] LABS: Glucose, Whole Blood 194 mg/dL (60-115)
[2020-02-15] MEDS: carvediloL 25 MG TABLET PO ×2 (07:51→21:06)
[2020-02-15] MEDS: 0.9 % Sodium Chloride Flush 3 ML SYRINGE IVFLUSH ×2 (07:51→15:54)
[2020-02-15] MEDS: Isosorbide Mononitrate 30 MG TAB.ER.24H PO (07:51)
[2020-02-15] MEDS: Insulin Glargine,Hum.rec.anlog 100 UNIT/ML 10 ML VIAL 10 UNIT SUBCUT (08:49)
[2020-02-15] MEDS: Insulin Lispro 100 UNIT/ML 3 ML VIAL SUBCUT ×3 (08:50→17:20)
[2020-02-15] MEDS: Isosorbide Mononitrate 60 MG TAB.ER.24H PO (09:51)
--- NOTE | 2020-02-15 10:29 | PM.PNCARD ---
Subjective Subjective Principal diagnosis: acute on chronic systolic HF, ischemic CMP Interval history: Cardiology follow up for CHF, CMP. Today he reports he is feeling better. Breathing is more comfortable. He denies CP. BP elevated. Still being diuresed. Review of Systems Review of Systems Yes all other systems are reviewed and are negative Reports system reviewed and no additional complaints, except as documented and Denies dizziness Cardiovascular: Denies chest pain, Denies chest pain at rest, Denies chest pain with activity, Denies Epigastric Pain, Denies syncope, Denies lightheadedness, Denies radiating jaw, neck or arm pain and Denies palpitations Respiratory: Denies chest congestion, Denies cough and Denies pain on inspiration Comments: Breathing improving Gastrointestinal: Reports no additional gastrointestinal complaints and Denies abdominal pain Musculoskeletal: Reports no additional musculoskeletal complaints Denies Abnormal speech present, Denies confusion, Denies dizziness and Denies syncope Psychiatric: Denies confusion Endocrine: Denies palpitations Physical Exam Vital Signs: Last Vital Signs Temp 97.9 F 02/15/20 07:26 Pulse 74 02/15/20 09:51 Resp 17 02/15/20 07:26 BP 120/64 02/15/20 09:51 Pulse Ox 99 02/15/20 07:26 Body Mass Index 25.5 Const General: No confusion Orientation/consciousness: No confusion HENMT Head: Yes normal to inspection Neck Neck: Yes normal visual inspection and Yes no JVD Resp Effort & Inspection: normal respiratory effort, able to speak in complete sentences and not labored Auscultation: clear to auscultation bilaterally (rales noted right lower lobe), no rhonchi and no wheezes Cardio Palpation: normal PMI Rate: regular rate Rhythm: regular rhythm Heart sounds: S1 normal heart sound present and S2 normal heart sound present Peripheral pulses: Peripheral pulses 2+ throughout GI Inspection: Yes normal to inspection Skin General skin exam: no rashes or lesions noted Neuro General: No confusion Speech: No Abnormal speech present Extrem Other: +1 bilateral lower leg pitting edema General: Yes normal to inspection Results Labs and Meds Result diagrams: 02/14/20 03:59 02/14/20 03:59 Lab results: Laboratory Results - last 24 hr 02/14/20 02/14/20 02/14/20 11:13 12:22 13:49 POC Glucose 398 H* 381 H* 357 H* Troponin I High Sens 02/14/20 02/14/20 02/14/20 15:49 16:00 17:33 POC Glucose 357 H* 343 H Troponin I High Sens 14.5 02/14/20 02/15/20 02/15/20 20:15 00:20 01:03 POC Glucose 184 H 41 L* 122 H Troponin I High Sens 02/15/20 07:10 POC Glucose 194 H Troponin I High Sens Progress Note: A&P Assessment and plan (1) Acute exacerbation of CHF (congestive heart failure): Status: Acute Assessment and Plan: Admit with increasing sob. Acute on chronic systolic CHF. Has known hx of ischemic CMP with last prior known EF 40%. BNP initally elevated at 410. Being diuresed with iV lasix. Fluid balance neg 500cc, unclear accuracy. He reports some improvement in breathing today. He does have fine rales on exam. Echo pending. Can continue IV lasix another day. Hospitalist already checking BMP, BNP today. Ongoing strict I+O monitoring, close monitoring of electrolyte and kidney function. (2) Ischemic cardiomyopathy: Status: Acute Assessment and Plan: Last EF 40%. On Carvedilol and Lisinopril for neurohormonal modulation. Cr elevated on admit. Recheck planned for today. BP elevated, CHF. Imdur started and dose increased today by hospitalist. (3) Hypertension: Status: Acute Assessment and Plan: Elevated at times this admit. Imdur added. (4) CAD (coronary artery disease): Status: Acute Assessment and Plan: Hx CAD with prior 3 vessel CABG. No report of anginal sounding CP. Fall Risk Details Current Medications: Current Medications Generic Name Dose Route Start Last Admin Trade Name Freq PRN Reason Stop Dose Admin Acetaminophen 650 mg 02/14/20 00:14 Acetaminophen 325 Mg Tablet PO Q6H PRN Pain, Mild (Pain Scale 1-3) Albuterol/Ipratropium 3 ml 02/14/20 20:12 02/15/20 01:40 Albuterol/Iprat 2.5/0.5mg 3 Ml Ampul.Neb INHALE 3 ml RQ4H PRN Administration Shortness of Breath/Wheezing Carvedilol 25 mg 02/14/20 09:00 02/15/20 07:51 Carvedilol 25 Mg Tablet PO 25 mg BID MARTITA Administration Protocol Docusate Sodium 100 mg 02/14/20 00:14 Docusate Sodium 100 Mg Capsule PO DAILY PRN Constipation Enoxaparin Sodium 40 mg 02/14/20 00:14 02/14/20 23:52 Enoxaparin Sodium 40 Mg/0.4 Ml Syringe SUBCUT 40 mg Q24H MARTITA Administration Furosemide 40 mg 02/14/20 08:00 02/15/20 07:51 Furosemide 40 Mg/4 Ml Vial IVPUSH 40 mg Q12H [facility] Administration Protocol Insulin Glargine 10 unit 02/14/20 09:00 02/15/20 08:49 Insulin Glargine,Hum.Rec.Anlog 100 Unit/Ml 10 Ml Vial SUBCUT 10 unit DAILY [facility] Administration Insulin Human Lispro 0 unit 02/14/20 07:30 02/15/20 08:50 Insulin Lispro 100 Unit/Ml 3 Ml Vial SUBCUT 4 unit QIDACHS [facility] Administration Protocol Isosorbide Mononitrate 60 mg 02/15/20 09:00 02/15/20 09:51 Isosorbide Mononitrate 60 Mg Tab.Er.24h PO 60 mg DAILY [facility] Administration Protocol Lisinopril 40 mg 02/14/20 21:00 02/14/20 20:23 Lisinopril 40 Mg Tablet PO 40 mg BEDTIME [facility] Administration Protocol Ondansetron HCl 4 mg 02/14/20 00:14 Ondansetron Hcl 4 Mg/2 Ml Vial IVPUSH Q8H PRN Nausea and Vomiting Sodium Chloride 3 ml 02/14/20 00:14 02/15/20 07:51 0.9 % Sodium Chloride Flush 3 Ml Syringe IVFLUSH 3 ml QSHIFT [facility] Administration Time Spent With Patient Time: Total time spent is greater than 50% in coordination of care (as documented) at patient's floor/unit and/or counseling patient: Time with patient: 15 - 24 minutes
[2020-02-15 10:33] LABS: Anion Gap 14 (12-20); Blood Urea Nitrogen 59 mg/dL (9-16); Calcium 8.6 mg/dL (8.4-10.2); Carbon Dioxide 29 mmol/L (22-29); Chloride 103 mmol/L (96-108); Creatinine Clr Calc Pharmacy 31.2; Estimated Glomerular Filt Rate 30; Glucose Random 235 mg/dL (60-115); Potassium 4.6 mmol/l (3.3-5.1); Sodium 141 mmol/L (135-145)
[2020-02-15 10:39] LABS: B Type Natriuretic Peptide 158 pg/mL (<100)
--- NOTE | 2020-02-15 10:59 | HO.PM.IMPN ---
Subjective Subjective Date of Service: 02/15/20 Interval History: patient feels better this morning complaining of less shortness of breath, denies chest pain, no sweating, no palpitation, noted to have low blood sugars last night. Review of Systems General no headache, no dizziness, no fever chills. CVS no chest pain, no palpitation. Respiratory no cough, no sputum production. Gastrointestinal no nausea, no vomiting, no abdominal pain Physical Exam Vital Signs: Vital Signs: Last Vital Signs Temp 97.9 F 02/15/20 07:26 Pulse 74 02/15/20 09:51 Resp 17 02/15/20 07:26 BP 120/64 02/15/20 09:51 Pulse Ox 99 02/15/20 07:26 Body Mass Index 25.5 General patient resting comfortably in no acute distress. Neck is supple no JVD. CVS regular rate rhythm, Respiratory few basilar crackles, no respiratory distressi. Gastrointestinal abdomen soft, nontender, bowel sounds audible Extremities less pitting edema, improved from yesterday. Neuro nonfocal Skin no rash Objective Data Current Medications Generic Name Dose Route Start Last Admin Trade Name Freq PRN Reason Stop Dose Admin Acetaminophen 650 mg 02/14/20 00:14 Acetaminophen 325 Mg Tablet PO Q6H PRN Pain, Mild (Pain Scale 1-3) Albuterol/Ipratropium 3 ml 02/14/20 20:12 02/15/20 01:40 Albuterol/Iprat 2.5/0.5mg 3 Ml Ampul.Neb INHALE 3 ml RQ4H PRN Administration Shortness of Breath/Wheezing Carvedilol 25 mg 02/14/20 09:00 02/15/20 07:51 Carvedilol 25 Mg Tablet PO 25 mg BID MARTITA Administration Protocol Docusate Sodium 100 mg 02/14/20 00:14 Docusate Sodium 100 Mg Capsule PO DAILY PRN Constipation Enoxaparin Sodium 40 mg 02/14/20 00:14 02/14/20 23:52 Enoxaparin Sodium 40 Mg/0.4 Ml Syringe SUBCUT 40 mg Q24H MARTITA Administration Furosemide 40 mg 02/14/20 08:00 02/15/20 07:51 Furosemide 40 Mg/4 Ml Vial IVPUSH 40 mg Q12H MARTITA Administration Protocol Insulin Glargine 10 unit 02/14/20 09:00 02/15/20 08:49 Insulin Glargine,Hum.Rec.Anlog 100 Unit/Ml 10 Ml Vial SUBCUT 10 unit DAILY [facility] Administration Insulin Human Lispro 0 unit 02/14/20 07:30 02/15/20 08:50 Insulin Lispro 100 Unit/Ml 3 Ml Vial SUBCUT 4 unit QIDACHS [facility] Administration Protocol Isosorbide Mononitrate 60 mg 02/15/20 09:00 02/15/20 09:51 Isosorbide Mononitrate 60 Mg Tab.Er.24h PO 60 mg DAILY [facility] Administration Protocol Lisinopril 40 mg 02/14/20 21:00 02/14/20 20:23 Lisinopril 40 Mg Tablet PO 40 mg BEDTIME [facility] Administration Protocol Ondansetron HCl 4 mg 02/14/20 00:14 Ondansetron Hcl 4 Mg/2 Ml Vial IVPUSH Q8H PRN Nausea and Vomiting Sodium Chloride 3 ml 02/14/20 00:14 02/15/20 07:51 0.9 % Sodium Chloride Flush 3 Ml Syringe IVFLUSH 3 ml QSHIFT [facility] Administration Labs CBC & Chem 7: 02/14/20 03:59 02/15/20 09:14 Microbiology Microbiology Results: Microbiology 02/13/20 18:22 Blood - Venous Blood Culture - Preliminary No growth after 24 hours. 02/13/20 18:22 Blood - Venous Blood Culture - Preliminary No growth after 24 hours. Assessment and Plan (1) Acute exacerbation of CHF (congestive heart failure): Status: Acute (2) Ischemic cardiomyopathy: Status: Acute (3) Hypertension: Status: Acute (4) Diabetes mellitus: Status: Acute (5) CAD (coronary artery disease): Status: Acute (6) Chronic kidney failure: Status: Acute Assessment and Plan: 69-year-old male who presents to the hospital with shortness of breath and a dry cough found to have CHF exacerbation # acute on chronic CHF exacerbation due to ischemic cardiomyopathy - patient feeling better,significant improvement in leg edema and shortness of breath, on IV Lasix 40 mg b.i.d., output not accurately measured since patient not collecting urine, EKG shows T-wave inversion lateral lead,echo pend, troponin on admission within normal range, repeat troponin,neg on Coreg, lisinopril, and Imdur 60 mg , follow clinical course closely, since BNP significantly improved will change to by mouth Lasix 40 mg daily, will discuss further management with Cardiology chest CT showing atelectasis versus early infiltrate, patient afebrile, no leukocytosis to indicate acute pneumonia, COVID-19 negative. # Dean on chronic kidney disease stage 3 - repeat creatinine remains around 2, follow BMP at a.m. will avoid over-diuresis. # hypertension - initially BP elevated currently trending down,continue carvedilol ,lisinopril, and Imdur # diabetes blood sugar noted to be elevated in 300 range on insulin sliding scale and Lantus , last night noted to have low blood sugar, will continue current dose of insulin DVT prophylaxis: Lovenox
[2020-02-15 11:33] LABS: Glucose, Whole Blood 228 mg/dL (60-115)
--- NOTE | 2020-02-15 14:00 | CA_ITS ---
Transthoracic Echocardiogram Patient (Last, First, Middle): Stuart Rich, Gender: Male Date of : 1950 Age: 69 Procedure Date: 02/15/2020 Procedure Type: Transthoracic Echocardiogram [place] [facility] [place]: 175.26 cm Weight: 80.74 kg BSA: 1.97 m2 Heart Rate: bpm BP: 147 / 78 mmHg Lift Slab Operator: Jake MD: Yang Arnold MD Automotive Mechanic: Lukas Doan MD Symptoms: congestive heart failure diaphoresis history of ischemic ca Study Quality: Fair ECG Rhythm: Sinus Conclusions: - 1. Mildly increased left ventricular size with moderate LV systolic dysfunction with impaired relaxation filling pattern. Underlying regional wall motion abnormality present consistent with prior NH and consistent with ischemic cardiomyopathy 2. Mitral annular calcification fibrocalcific aortic valve with normal cardiac valvular Doppler 3. No gross pericardial effusion Findings Left Ventricle Mildly increased left ventricular cavity size. There is normal left ventricular wall thickness. The left ventricular systolic function is moderately decreased. The visually estimated ejection fraction is between 35 40%. There is paradoxical septal motion consistent with post-operative status. Spectral Doppler is indicative of an impaired relaxation filling pattern. E/E prime ratio is between 8 and 15 consistent with indeterminate filling pressures. Wall Motion Rest Echo Findings The inferoseptal wall, inferolateral wall, the basal inferior, mid inferior, and basal anterolateral segments are akinetic. All other scored wall segments showed normal motion. Right Ventricle Normal right ventricular cavity size and systolic function. Atria The left atrium is normal in size. There is no evidence of interatrial shunt. The right atrium is normal in size. Aortic Valve There is mild calcification of the aortic valve. There is mild thickening of the aortic valve. There is no aortic valve stenosis. There is no aortic valve regurgitation. Mitral Valve There is mild anterior and moderate posterior mitral leaflet thickening. The posterior mitral leaflet has restricted mobility. There is mild mitral annular calcification. There is trace mitral valve regurgitation. There is no mitral valve stenosis. Pulmonic Valve The pulmonic valve was not well visualized. Tricuspid Valve The tricuspid valve was not well visualized. Tricuspid regurgitation envelope is inadequate for calculation of right ventricular systolic pressure. Great Vessels All visible segments of the aorta are normal in size. The pulmonary artery was not well visualized. Venous The inferior vena cava was not well visualized. Pericardium/Pleural There is no evidence of pericardial effusion. Prior Study Comparison No significant change compared to prior study dated: 10/25/2019. Measurements 2D Linear Measurements RVIDd: 2.44 RVIDd Index: 1.24 IVSd: 0.78 0.6-0.9/0.6-1.0 cm LVIDd: 5.88 3.9-5.3/4.2-5.9 cm LVIDd Index: 2.98 2.4-3.2/2.2-3.1 cm/m2 LVIDs: 4.96 2.0-3.6 cm LVPWd: 0.90 0.7-1.1 cm Ao Root: 3.30 2.1-3.5 cm LA Diam: 5.10 2.7-3.8/3.0-4.0 cm LAIDs Index: 2.59 1.5-2.3 cm/m2 LV Mass: 238.11 67-162/88-224 g LV Mass Index: 120.87 43-95/49-115 g/m2 LVOT Diam: 2.20 3.0+(-)1.3 cm 2D Systolic Function EF 4C: 39.40 >55% EF 2C: 29.10 >55% EF BiP: 35.60 >55% Mitral Valve MV Pk E: 0.59 MV PK A: 0.75 MV Decel Time: 210.00 E/A: 0.80 E'Lateral: 6.20 E'Medial: 4.03 E/E' Med: 14.60 E/E' Lat: 9.50 Aortic Valve AoV Pk Fabio: 1.23 AoV Mn Fabio: 0.88 AoV VTI: 0.24 AoV Pk Grad: 6.00 Aov Mn Grad: 3.00 ELISSA Cont.VTI: 2.65 LVOT LVOT Pk Fabio: 0.73 LVOT Mn Fabio: 0.49 LVOT VTI: 0.16 LVOT Pk Grad: 2.00 LVOT Mn Grad: 1.00 LVOT Diam: 2.20 LVOT Area: 3.80 Diastolic Function MV Pk E: 0.59 MV Pk A: 0.75 E/A: 0.80 E'Medial: 4.03 E/E' Med: 14.60 E' Laterial: 6.20 E/E' Lat: 9.50 Great Vessels Aorta Ao Root-2D: 3.30 2.0-3.7 cm Ao Asc: 3.10 2.1-3.4 cm Ao Arch: 2.90 Updated in Other Vendor System with Status of Final Lukas Doan MD electronically signed on 02/16/2020 11:43:36 AM with status of Final
[2020-02-15 16:47] LABS: Glucose, Whole Blood 165 mg/dL (60-115)
[2020-02-15 20:30] LABS: Glucose, Whole Blood 134 mg/dL (60-115)
[2020-02-15] MEDS: lisinopriL 40 MG TABLET PO (21:07)
[2020-02-16] MEDS: Enoxaparin Sodium 40 MG/0.4 ML SYRINGE SUBCUT (00:19)
[2020-02-16] MEDS: 0.9 % Sodium Chloride Flush 3 ML SYRINGE IVFLUSH ×2 (00:20→08:35)
--- NOTE | 2020-02-16 02:25 | PC.NURSE ---
Patient had 10 beat of Vtach on telemetry. Asymptomatic, hospitalist notified. Magnesium level ordered, vss, will continue to monitor.
[2020-02-16 03:35] VITALS: BP 116/59; PULSE 77; RESP 18; TEMP 36.7; O2SAT 92
[2020-02-16 06:00] VITALS: BMI 25.8
[2020-02-16 06:51] LABS: Anion Gap 14 (12-20); Blood Urea Nitrogen 61 mg/dL (9-16); Calcium 8.6 mg/dL (8.4-10.2); Carbon Dioxide 28 mmol/L (22-29); Chloride 106 mmol/L (96-108); Creatinine Clr Calc Pharmacy 32.4; Estimated Glomerular Filt Rate 31; Glucose Random 166 mg/dL (60-115); Potassium 5.2 mmol/l (3.3-5.1); Sodium 143 mmol/L (135-145)
[2020-02-16 06:55] LABS: Magnesium 2.3 mg/dL (1.6-2.6)
[2020-02-16 07:40] LABS: Glucose, Whole Blood 159 mg/dL (60-115)
[2020-02-16 07:46] VITALS: BP 149/63; PULSE 76; RESP 20; TEMP 36.2; O2SAT 91
[2020-02-16] MEDS: Furosemide 40 MG TABLET PO ×2 (08:36→15:11)
[2020-02-16] MEDS: Insulin Glargine,Hum.rec.anlog 100 UNIT/ML 10 ML VIAL 10 UNIT SUBCUT (08:37)
[2020-02-16] MEDS: Insulin Lispro 100 UNIT/ML 3 ML VIAL SUBCUT ×2 (08:37→11:53)
[2020-02-16 08:38] VITALS: BP 138/80; PULSE 84
[2020-02-16] MEDS: Isosorbide Mononitrate 60 MG TAB.ER.24H PO (08:38)
[2020-02-16 08:39] VITALS: BP 138/80; PULSE 84
[2020-02-16] MEDS: carvediloL 25 MG TABLET PO (08:39)
--- NOTE | 2020-02-16 10:22 | P.PNCA_ITS ---
Subjective Subjective Date of Service: 02/16/20 Principal diagnosis: acute on chronic systolic HF, ischemic CMP Interval history: Cardiology follow up for HF. Today he reports that his breathing is good. He denies any CP, palpitation. He reports that he has walked in room and breathing was ok . He slept well. Review of Systems Review of Systems Yes all other systems are reviewed and are negative Denies dizziness Cardiovascular: Denies chest pain at rest, Denies chest pain with activity, Denies syncope, Denies palpitations and Denies dyspnea on exertion Respiratory: Denies chest congestion, Denies cough, Denies hemoptysis, Denies pain on inspiration and Denies dyspnea on exertion Gastrointestinal: Reports no additional gastrointestinal complaints and Denies abdominal pain Musculoskeletal: Reports no additional musculoskeletal complaints Denies Abnormal speech present, Denies confusion, Denies dizziness and Denies syncope Psychiatric: Denies confusion Endocrine: Denies palpitations Physical Exam Vital Signs: Last Vital Signs Temp 97.2 F 02/16/20 07:46 Pulse 84 02/16/20 08:39 Resp 20 02/16/20 07:46 BP 138/80 02/16/20 08:39 Pulse Ox 91 L 02/16/20 07:46 Body Mass Index 25.8 Const Other: Awake, oreinted, no distress. Pleasant and appropriate General: No confusion Orientation/consciousness: No confusion HENDC Head: Yes normal to inspection Neck Neck: Yes normal visual inspection and Yes no JVD Resp Effort & Inspection: normal respiratory effort, able to speak in complete sentences and not labored Auscultation: clear to auscultation bilaterally (upper lobes, lower lobes with rales, fine on left base and more coarse R. ), no rhonchi and no wheezes Cardio Palpation: normal PMI Rate: regular rate Rhythm: regular rhythm Heart sounds: S1 normal heart sound present and S2 normal heart sound present Peripheral pulses: Peripheral pulses 2+ throughout GI Inspection: Yes normal to inspection Neuro General: No confusion Speech: No Abnormal speech present Extrem Other: +1 to trace lower leg edema General: Yes normal to inspection Results Labs and Meds Result diagrams: 02/14/20 03:59 02/16/20 05:28 Lab results: Laboratory Results - last 24 hr 02/15/20 02/15/20 02/15/20 09:14 09:14 11:30 Sodium 141 Potassium 4.6 Chloride 103 Carbon Dioxide 29 Anion Gap 14 BUN 59 H Creatinine 2.17 H Estim Creat Clear Calc 31.2 Estimated GFR 30 POC Glucose 228 H Random Glucose 235 H Calcium 8.6 Magnesium B-Natriuretic Peptide 158 H 02/15/20 02/15/20 02/16/20 16:43 20:27 05:28 Sodium 143 Potassium 5.2 H Chloride 106 Carbon Dioxide 28 Anion Gap 14 BUN 61 H Creatinine 2.09 H Estim Creat Clear Calc 32.4 Estimated GFR 31 POC Glucose 165 H 134 H Random Glucose 166 H Calcium 8.6 Magnesium B-Natriuretic Peptide 02/16/20 02/16/20 05:28 07:37 Sodium Potassium Chloride Carbon Dioxide Anion Gap BUN Creatinine Estim Creat Clear Calc Estimated GFR POC Glucose 159 H Random Glucose Calcium Magnesium 2.3 B-Natriuretic Peptide Progress Note: A&P Assessment and plan (1) Acute exacerbation of CHF (congestive heart failure): Status: Acute Assessment and Plan: Admit with increasing sob. Being treated for acute on chronic systolic HF. Diuresed with IV lasix. Unclear if his outputs are documented accurately as his negative output is minima. His BUN and Cr were more elevated yesterday and his IV lasix was changed to PO. On exam he dose has some rales in lung bases and trace lower leg edema. He does report his breathing is better. Echo done however reading still pending. Will continue po Lasix. Await echo reading. Continue Carvedilol, Lisinopril, Imdur. (2) Ischemic cardiomyopathy: Status: Acute Assessment and Plan: Prior known EF 40%. Echo reading pending. (3) CAD (coronary artery disease): Status: Acute Assessment and Plan: Hx CAD, CABG. No report of anginal sounding CP. Did present with increasing sob. Troponins were negative. No ACS. Ongoing medical mgt. (4) Hx of CABG: Status: Acute (5) Hypertension: Status: Acute Assessment and Plan: Controlled. No med changes made. Fall Risk Details Current Medications: Current Medications Generic Name Dose Route Start Last Admin Trade Name Freq PRN Reason Stop Dose Admin Acetaminophen 650 mg 02/14/20 00:14 Acetaminophen 325 Mg Tablet PO Q6H PRN Pain, Mild (Pain Scale 1-3) Albuterol/Ipratropium 3 ml 02/14/20 20:12 02/15/20 01:40 Albuterol/Iprat 2.5/0.5mg 3 Ml Ampul.Neb INHALE 3 ml RQ4H PRN Administration Shortness of Breath/Wheezing Carvedilol 25 mg 02/14/20 09:00 02/16/20 08:39 Carvedilol 25 Mg Tablet PO 25 mg BID [facility] Administration Protocol Docusate Sodium 100 mg 02/14/20 00:14 Docusate Sodium 100 Mg Capsule PO DAILY PRN Constipation Enoxaparin Sodium 40 mg 02/14/20 00:14 02/16/20 00:19 Enoxaparin Sodium 40 Mg/0.4 Ml Syringe SUBCUT 40 mg Q24H MARTITA Administration Furosemide 40 mg 02/16/20 09:00 02/16/20 08:36 Furosemide 40 Mg Tablet PO 40 mg DAILY [facility] Administration Protocol Insulin Glargine 10 unit 02/14/20 09:00 02/16/20 08:37 Insulin Glargine,Hum.Rec.Anlog 100 Unit/Ml 10 Ml Vial SUBCUT 10 unit DAILY [facility] Administration Insulin Human Lispro 0 unit 02/14/20 07:30 02/16/20 08:37 Insulin Lispro 100 Unit/Ml 3 Ml Vial SUBCUT 4 unit QIDACHS [facility] Administration Protocol Isosorbide Mononitrate 60 mg 02/15/20 09:00 02/16/20 08:38 Isosorbide Mononitrate 60 Mg Tab.Er.24h PO 60 mg DAILY [facility] Administration Protocol Lisinopril 40 mg 02/14/20 21:00 02/15/20 21:07 Lisinopril 40 Mg Tablet PO 40 mg BEDTIME [facility] Administration Protocol Ondansetron HCl 4 mg 02/14/20 00:14 Ondansetron Hcl 4 Mg/2 Ml Vial IVPUSH Q8H PRN Nausea and Vomiting Sodium Chloride 3 ml 02/14/20 00:14 02/16/20 08:35 0.9 % Sodium Chloride Flush 3 Ml Syringe IVFLUSH 3 ml QSHIFT [facility] Administration Time Spent With Patient Time: Total time spent is greater than 50% in coordination of care (as documented) at patient's floor/unit and/or counseling patient: Time with patient: 15 - 24 minutes
[2020-02-16 11:09] LABS: Glucose, Whole Blood 230 mg/dL (60-115)
[2020-02-16 11:11] VITALS: BP 153/78; PULSE 78; RESP 18; TEMP 36.6; O2SAT 94
--- NOTE | 2020-02-16 15:00 | P.DS_ITS ---
DS: Providers Provider Date of admission: 02/13/20 22:29 Primary care physician: Unknown Physician Consults: 02/14/20 00:14 Consult to Cardiology Routine Consulting Provider: Jared Srivastava Reason for consultation: CHF exacerbation Has provider been notified: No DS: Diagnosis Discharge Diagnosis (1) Acute exacerbation of CHF (congestive heart failure): Status: Acute (2) Ischemic cardiomyopathy: Status: Acute (3) CAD (coronary artery disease): Status: Acute (4) Hx of CABG: Status: Acute (5) Hypertension: Status: Acute DS: Medications Discharge Medications Home Medications: Home Medications Medication Instructions Recorded Confirmed acetaminophen 1 tab PO Q6H PRN 02/13/20 02/13/20 lancets [FreeStyle Lancets] 02/13/20 02/13/20 lisinopril 1 tab PO BEDTIME 02/13/20 02/13/20 pen needle, diabetic [BD 02/13/20 02/13/20 Ultra-Fine Tamera Pen Needle] Previous Rx's Medication Instructions Recorded carvedilol 25 mg tablet 25 mg PO BID 90 Days #180 tab 01/05/20 furosemide 40 mg PO BID #60 tab 02/16/20 insulin glargine [Lantus U-100 15 unit SUBCUT DAILY #100 ml 02/16/20 Insulin] isosorbide mononitrate 60 mg PO DAILY #30 tab 02/16/20 DS: Summary Hospital Course Hospital Course: History of presenting illness. This is a 69-year-old Yoruba speaking man with a history of diabetes, hypertension and CKD who presents to the hospital with shortness of breath. History is obtained mostly from ED physician S patient does not speak [place] and he start getting very anxious as soon as I ask him any questions. 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 history is obtained mostly from the ED physician. Per ER report from patient's family patient has been having difficulty breathing for the past 2 weeks as well as dry cough. He also has lower extremity swelling. No other formation review of system can be obtained from the patient at this time. On arrival to the ED patient hemodynamically stable labs are significant for hemoglobin of 10.7, BUN of 43, creatinine of 2.08 with a baseline around 1.3-1.5, BNP of 410, COVID-19 negative, influenza A/B and RSV negative. CT of the chest demonstrated hypoinflation of the lungs with diffuse social prominence and the bibasilar linear atelectasis versus very early infiltrate. No significant ground-glass airspace opacities to indicate viral pneumonia Hospital course acute exacerbation of systolic congestive heart failure with underlying ischemic cardiomyopathy patient admitted with increasing sob and diagnosed with acute on chronic systolic HF. Diuresed with IV lasix, patient responded well to diuretic therapy his leg edema and bilateral crackles have resolved patient BNP has trended down his creatinine remains elevated but stable no worsening of renal function and echocardiogram revealed an EF 35-40% Patient also has inferior septal, inferior lateral, basal inferior and mid inferior and basal anterior lateral segment akinetic. 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 and Isordil has been added. history of coronary artery disease status post CABG patient had no episode of chest pain did present with increasing shortness of breath and noted to be diaphoretic troponins are negative no acute coronary syndrome at this time patient will be continued on Coreg lisinopril and Isordil added, patient LDL 47 in August of 2019 patient not on statin. Diabetes mellitus noted to have high blood sugars and 1 episode of hypoglycemia, patient at home takes 30 units of Lantus at night and Humalog before meals case discussed with patient daughter he has been noticed to have low blood sugars at home therefore dose of Lantus reduced to 15 units and recommend to continue Humalog. Time Spent with Patient Time attestation: Total time spent providing and/or coordinating discharge services: Physical Exam Vital Signs: Vital Signs: Last Vital Signs Temp 97.8 F 02/16/20 11:11 Pulse 78 02/16/20 11:11 Resp 18 02/16/20 11:11 BP 153/78 H 02/16/20 11:11 Pulse Ox 94 02/16/20 11:11 Body Mass Index 25.8 General patient resting comfortably in no acute distress. Neck supple no JVD. CVS regular rate rhythm, Respiratory lungs clear to auscultation, no respiratory distress, Gastrointestinal abdomen soft, nontender, bowel sounds audible, no no guarding , no rigidity. Extremities no clubbing cyanosis or edema. Neuro nonfocal , patient is slow to respond discussed with daughter that seems to be his baseline. Skin no rash DS: Data Data Completed and Pending Labs on day of discharge: 02/13/20 17:35 ECG 12 lead EKG Stat EKG Documentation DIRECTED XR chest 1V Stat 02/13/20 17:36 Albuterol Sulfate [Ventolin] 4 puff INHALE ONCE ONE 02/13/20 18:21 B Type Natriuretic Peptide Stat Basic Metabolic Panel Stat Complete Blood Count Auto Diff Stat D Dimer Stat Hold Lt Blue - Possible Coag Stat Lactic Acid Stat Troponin-I High Sensitivity Stat 02/13/20 18:22 SARS-CoV2/FLU/RSV Stat 02/13/20 18:32 Azithromycin [Zithromax] 500 mg PO ONCE ONE cefTRIAXone sodium [Rocephin] 1 gm 0.9 % Sodium Chloride [Ns] 50 ml IV ONCE dexAMETHasone sod phosphate [Decadron] 10 mg IVPUSH ONCE ONE 02/13/20 19:03 Add Laboratory Test Stat 02/13/20 19:23 cefTRIAXone sodium [Rocephin] 1 gm .ROUTE .STK-MED ONE 02/13/20 19:28 CT chest wo con Stat 02/13/20 19:40 Albuterol/Iprat 2.5/0.5MG 3 ML [Duoneb] 3 ml INHALE ONCE ONE 02/13/20 19:41 Albuterol Sulfate (0.083%) [Ventolin (0.083%)] 5 mg INHALE ONCE ONE 02/13/20 19:42 Furosemide [Lasix] 40 mg IVPUSH ONCE ONE 02/13/20 20:05 ECG 12 lead EKG Stat EKG Documentation DIRECTED 02/13/20 20:19 Nitroglycerin 2 % Oint [Nitro-Bid] 0.5 inch TRANSDERMA ONCE ONE 02/13/20 21:26 Troponin-I High Sensitivity Stat 02/13/20 22:16 Transfer Order Routine 02/13/20 22:19 Troponin-I High Sensitivity Stat 02/14/20 XR chest 1V Stat 02/14/20 03:59 Basic Metabolic Panel Routine Complete Blood Count Auto Diff Routine SLIDE REVIEW Routine 02/14/20 05:58 Weight DAILY@0600 02/14/20 08:00 Furosemide [Lasix] 40 mg IVPUSH Q12H 02/14/20 08:15 Glucose, Whole Blood Routine 02/14/20 Breakfast Low Sodium Diet 02/14/20 11:13 Glucose, Whole Blood Routine 02/14/20 11:15 Isosorbide Mononitrate [Imdur] 30 mg PO DAILY 02/14/20 12:22 Glucose, Whole Blood Routine 02/14/20 13:49 Glucose, Whole Blood Routine 02/14/20 13:57 ECG 12 lead EKG Urgent 02/14/20 13:58 EKG Documentation DIRECTED 02/14/20 15:49 Troponin-I High Sensitivity Routine 02/14/20 16:00 Glucose, Whole Blood Routine 02/14/20 17:33 Glucose, Whole Blood Routine 02/14/20 20:15 Glucose, Whole Blood Routine 02/15/20 00:20 Glucose, Whole Blood Routine 02/15/20 00:22 Dextrose 50 % [D50] 25 gm .ROUTE .STK-MED ONE 02/15/20 01:03 Glucose, Whole Blood Routine 02/15/20 03:30 Furosemide [Lasix] 40 mg IVPUSH STAT STA Morphine Sulfate 4 mg IVPUSH ONCE ONE 02/15/20 07:10 Glucose, Whole Blood Routine 02/15/20 09:14 B Type Natriuretic Peptide Routine Basic Metabolic Panel Routine 02/15/20 11:30 Glucose, Whole Blood Routine 02/15/20 14:00 CA echo transthoracic complete Urgent 02/15/20 16:43 Glucose, Whole Blood Routine 02/15/20 20:27 Glucose, Whole Blood Routine 02/16/20 05:28 Basic Metabolic Panel Routine Magnesium Routine 02/16/20 07:37 Glucose, Whole Blood Routine 02/16/20 11:06 Glucose, Whole Blood Routine Laboratory Last Values WBC 10.3 X10*3/uL (4.8-10.8) 02/14/20 03:59 RBC 4.31 X10*6/uL (4.60-5.80) L 02/14/20 03:59 Hgb 10.7 g/dl (14.0-18.0) L 02/14/20 03:59 Hct 35.1 % (42-52) L 02/14/20 03:59 MCV 81.4 fL (80-98) 02/14/20 03:59 MCH 24.8 pg (27.0-33.0) L 02/14/20 03:59 MCHC 30.5 g/dl (31.0-36.0) L 02/14/20 03:59 RDW 14.8 % (11.0-16.0) 02/14/20 03:59 Plt Count 199 X10*3/uL (160-400) 02/14/20 03:59 MPV 12.0 fL (9.4-12.4) 02/14/20 03:59 Immature Gran % (Auto) 0.4 % (0.0-0.4) 02/14/20 03:59 Neut % (Auto) 91.9 % (45-73) H 02/14/20 03:59 Lymph % (Auto) 7.1 % (20-40) L 02/14/20 03:59 [place] % (Auto) 0.5 % (2-11) L 02/14/20 03:59 Eos % (Auto) 0.0 % (0-4) 02/14/20 03:59 Baso % (Auto) 0.1 % (0-2) 02/14/20 03:59 Lymph # (Auto) 0.7 X10*3/uL (1.2-4.9) L 02/14/20 03:59 [place] # (Auto) 0.1 X10*3/uL (0.1-1.2) 02/14/20 03:59 Eos # (Auto) 0.0 X10*3/uL (0.0-0.4) 02/14/20 03:59 Baso # (Auto) 0.0 X10*3/uL (0.0-0.2) 02/14/20 03:59 Abs Immat Gran (auto) 0.04 X10*3/uL (0.00-0.03) H 02/14/20 03:59 Absolute Neuts (auto) 9.5 X10*3/uL (2.0-8.3) H 02/14/20 03:59 Absolute Nucleated RBC 0.000 X10*3/uL (0.0-0.012) 02/14/20 03:59 Nucleated RBC % (auto) 0.0 /100WBC (0.0-0.2) 02/14/20 03:59 Smear Tech's Comments VERIFIED 02/14/20 03:59 D-Dimer 332 NG/ML 02/13/20 18:21 Hold Blue Top SEE NOTE 02/13/20 18:21 Sodium 143 mmol/L (135-145) 02/16/20 05:28 Potassium 5.2 mmol/l (3.3-5.1) H 02/16/20 05:28 Chloride 106 mmol/L (96-108) 02/16/20 05:28 Carbon Dioxide 28 mmol/L (22-29) 02/16/20 05:28 Anion Gap 14 (12-20) 02/16/20 05:28 BUN 61 mg/dL (9-16) H 02/16/20 05:28 Creatinine 2.09 mg/dL (0.5-1.4) H 02/16/20 05:28 Estim Creat Clear Calc 32.4 02/16/20 05:28 Estimated GFR 31 02/16/20 05:28 POC Glucose 230 mg/dL (60-115) H 02/16/20 11:06 Random Glucose 166 mg/dL (60-115) H 02/16/20 05:28 Lactic Acid 0.7 mmol/L (0.5-2.0) 02/13/20 18:21 Calcium 8.6 mg/dL (8.4-10.2) 02/16/20 05:28 Magnesium 2.3 mg/dL (1.6-2.6) 02/16/20 05:28 Troponin I High Sens 14.5 ng/L (<3.5-35.0) 02/14/20 15:49 B-Natriuretic Peptide 158 pg/mL (<100) H 02/15/20 09:14 Coronavirus (PCR) NEGATIVE (Negative) 02/13/20 18:22 Influenza Type A (PCR) NEGATIVE (Negative) 02/13/20 18:22 Influenza Type B (PCR) NEGATIVE (Negative) 02/13/20 18:22 RSV RNA Qual (PCR) NEGATIVE (Negative) 02/13/20 18:22 Preliminary micro results at discharge 02/13/20 18:22 Blood Culture - Preliminary Blood - Venous No growth after 48 hours. 02/13/20 18:22 Blood Culture - Preliminary Blood - Venous No growth after 48 hours. Discharge Plan Discharge Patient Disposition: Home Health Service Referrals: Physician,Unknown [Primary Care Provider] - Discharge Medications: New Lantus U-100 Insulin 100 unit/mL Solution 15 unit subcut DAILY Qty: 100 RF: 0 furosemide 40 mg Tablet 40 mg PO BID Qty: 60 RF: 0 isosorbide mononitrate 60 mg Tablet Extended Release 24 Hr 60 mg PO DAILY Qty: 30 RF: 0 Continued carvedilol 25 mg tablet 25 mg PO BID 90 Days Qty: 180 RF: 3 acetaminophen 500 mg tablet 1 tab PO Q6H PRN (Reason: Pain) RF: 0 lisinopril 40 mg tablet 1 tab PO BEDTIME RF: 0 Discontinued nitrofurantoin monohyd/m-cryst 100 mg capsule 1 cap PO Q12H RF: 0 Lantus Solostar U-100 Insulin 100 unit/mL (3 mL) insulin pen See Protocol unit subcut DAILY RF: 0 No Action (DME) pen needle, diabetic [BD Ultra-Fine Tamera Pen Needle] 32 gauge x 5/32 needle MISCELLANEOUS QID RF: 0 (DME) lancets [FreeStyle Lancets] 28 gauge misc 1 gauge MISCELLANEOUS TID RF: 0 Discharge Orders: Discharge Order (Routine); Ordered 02/16/20 Ordered By: Yang Arnold Diet: diabetic diet, low fat, low cholesterol and low salt diet Activity on Discharge: As tolerated Visit Report Forms: Patient Portal Discharge page Care Plan Goals: continue Humalog insulin as before and reduce dose of Lantus to 15 units at bedtime follow diabetic diet , low salt. Health Concerns: follow-up closely with primary care physician and Cardiology Plan of Treatment: as above.
[2020-02-16 15:15] VITALS: BP 148/65; PULSE 76; RESP 18; TEMP 37.1; O2SAT 98
--- NOTE | 2020-02-16 15:29 | MHC.CM.PN ---
Addendum entered by Myra March 02/16/20 15:41: DC info for [facility] sent with patient. DC Summary and DC packet provided. Original Note: DC today to home. Resumption of Home care [facility]. A referral was sent via [employer] 02/14/20 no acknowledgment receive. A second messegs sent today. Phone # provided for agency out of order . He dtr was notified. She did not have the phone number. She stated that she would locate the # and notifiy the agency that he is home.
== END 2020-02-16 14:15 | disposition home health service (06) | DRG 291 ==
LOC: HO.ED 22:00 → HO.IMC 23:46
PROVIDERS: Admitting Provider Internal Medicine; Emergency Provider Internal Medicine; Visit Provider Hospitalist
DX: I13.0 Hypertensive heart and chronic kidney disease with heart failure and stage 1 through stage 4 chronic kidney disease, or unspecified chronic kidney disease (principal); I50.23 Acute on chronic systolic (congestive) heart failure; I25.10 Atherosclerotic heart disease of native coronary artery without angina pectoris; I25.5 Ischemic cardiomyopathy; E11.22 Type 2 diabetes mellitus with diabetic chronic kidney disease; N18.30 Chronic kidney disease, stage 3 unspecified; I25.2 Old myocardial infarction; E11.65 Type 2 diabetes mellitus with hyperglycemia; E11.649 Type 2 diabetes mellitus with hypoglycemia without coma; Z20.828 Contact with and (suspected) exposure to other viral communicable diseases; Z95.1 Presence of aortocoronary bypass graft; Z79.4 Long term (current) use of insulin; Z79.899 Other long term (current) drug therapy
CPT/HCPCS: 0241U; 36415; 71045; 71250; 80048; 82947; 83605; 83735; 83880; 84484; 85025; 85379; 87040; 93005; 93306; 94640; 96365; 96375; 99285; J0696; J1100; J1650; J1940; J2270

== ENCOUNTER 2020-05-24 14:43 | Emergency (ER) | payer MEDICARE, MEDICAID, SELFPAY | END 2020-05-24 16:57 | disposition left against medical advice (07) | PROVIDERS: Emergency Provider Emergency Medicine; PCP Internal Medicine | DX: R06.02 Shortness of breath (principal) ==

== ENCOUNTER 2020-05-29 14:24 | Outpatient (REF) | payer MEDICARE, MEDICAID, SELFPAY ==
--- NOTE | ~2020-05-29 | XR_ITS ---
EXAMINATION: XR CHEST CLINICAL INFORMATION: Shortness of breath, essential primary hypertension COMPARISON: Chest radiographs 02/14/2020, 02/13/2020, CT chest noncontrast 02/13/2020 TECHNIQUE: 2 views of the chest were obtained. FINDINGS: There are low lung volumes with chronic elevation right diaphragm similar to prior studies. There is been prior coronary bypass surgery with mediastinal clips and sternotomy wires. The heart is normal in size. The vascularity is normal. There is some crowding of bronchovascular markings right infrahilar region similar to prior exams no lobar or segmental airspace consolidation or definite groundglass opacity. No vascular congestion. No pneumothorax or pneumomediastinum. XR/XR chest 2V IMPRESSION: 1. Low lung volumes with elevation right diaphragm similar to prior exams. 2. No acute intrathoracic disease.
[2020-05-29 15:30] LABS: Alanine Aminotransferase 22 U/L (0-40); Albumin Level 4.1 g/dL (3.5-5.0); Alkaline Phosphatase 74 U/L (39-117); Anion Gap 14 (12-20); Aspartate Amino Transferase 21 U/L (5-37); Bilirubin Total 0.3 mg/dL (0.0-1.0); Blood Urea Nitrogen 32 mg/dL (9-16); Calcium 9.1 mg/dL (8.4-10.2); Carbon Dioxide 29 mmol/L (22-29); Chloride 107 mmol/L (96-108); Estimated Glomerular Filt Rate 38; Glucose Random 200 mg/dL (60-115); Potassium 5.6 mmol/L (3.3-5.1); Sodium 144 mmol/L (135-145); Total Protein 7.3 g/dL (6.5-8.0)
== END 2020-05-29 14:25 | disposition home or self-care (01) ==
LOC: HO.LAB 14:24
PROVIDERS: PCP Internal Medicine; Visit Provider Internal Medicine
DX: I10 Essential (primary) hypertension (principal)
CPT/HCPCS: 36415; 71046; 80053

== ENCOUNTER 2020-06-06 14:12 | Outpatient (REF) | payer MEDICARE, MEDICAID, SELFPAY ==
[2020-06-06 16:29] LABS: Anion Gap 12 (12-20); B Type Natriuretic Peptide 273 pg/mL (<100); Blood Urea Nitrogen 30 mg/dL (9-16); Calcium 8.8 mg/dL (8.4-10.2); Carbon Dioxide 29 mmol/L (22-29); Chloride 103 mmol/L (96-108); Estimated Glomerular Filt Rate 43; Glucose Random 302 mg/dL (60-115); Potassium 5.3 mmol/L (3.3-5.1); Sodium 139 mmol/L (135-145)
== END 2020-06-06 14:13 | disposition home or self-care (01) ==
LOC: HO.LAB 14:12
PROVIDERS: PCP Internal Medicine; Visit Provider Internal Medicine Cardiovascular Disease
DX: I50.20 Unspecified systolic (congestive) heart failure (principal); I25.5 Ischemic cardiomyopathy
CPT/HCPCS: 36415; 80048; 83880; 99212

== ENCOUNTER → 2020-06-19 13:59 | Outpatient (BNVA) | payer MEDICARE, MEDICAID, SELFPAY | PROVIDERS: PCP Internal Medicine; Visit Provider Internal Medicine Cardiovascular Disease | DX: I50.20 Unspecified systolic (congestive) heart failure (principal); I25.5 Ischemic cardiomyopathy; I25.10 Atherosclerotic heart disease of native coronary artery without angina pectoris | CPT/HCPCS: 99212 ==

== ENCOUNTER → 2020-07-18 13:22 | Outpatient (BNVA) | payer OTHER, MEDICARE, SELFPAY | PROVIDERS: PCP Internal Medicine; Visit Provider Internal Medicine Cardiovascular Disease | DX: I50.20 Unspecified systolic (congestive) heart failure (principal); I25.5 Ischemic cardiomyopathy | CPT/HCPCS: 99212 ==

== ENCOUNTER 2020-09-06 10:21 | Outpatient (REF) | payer OTHER, SELFPAY ==
[2020-09-06 11:28] LABS: Hematocrit 34.7 % (42-52); Hemoglobin 10.7 g/dl (14.0-18.0); Mean Corpuscular HGB Conc 30.8 g/dl (31.0-36.0); Mean Corpuscular Hemoglobin 24.9 pg (27.0-33.0); Mean Corpuscular Volume 80.9 fL (80-98); Mean Platelet Volume 11.7 fL (9.4-12.4); Platelet Count 207 X10*3/uL (160-400); Red Blood Count 4.29 X10*6/uL (4.60-5.80); Red Cell Distribution Width 13.8 % (11.0-16.0); White Blood Count 8.7 X10*3/uL (4.8-10.8)
[2020-09-06 12:08] LABS: Anion Gap 13 (12-20); Blood Urea Nitrogen 45 mg/dL (9-16); Calcium 9.2 mg/dL (8.4-10.2); Carbon Dioxide 31 mmol/L (22-29); Chloride 99 mmol/L (96-108); Estimated Glomerular Filt Rate 28; Glucose Random 169 mg/dL (60-115); Magnesium 2.1 mg/dL (1.6-2.6); Potassium 5.2 mmol/L (3.3-5.1); Sodium 138 mmol/L (135-145)
[2020-09-06 12:18] LABS: B Type Natriuretic Peptide 78 pg/mL (<100)
== END 2020-09-06 10:22 | disposition home or self-care (01) ==
LOC: HO.LAB 10:21
PROVIDERS: PCP Internal Medicine; Referring Provider Internal Medicine; Visit Provider Internal Medicine Cardiovascular Disease
DX: I50.20 Unspecified systolic (congestive) heart failure (principal); I50.30 Unspecified diastolic (congestive) heart failure; I25.10 Atherosclerotic heart disease of native coronary artery without angina pectoris
CPT/HCPCS: 36415; 80048; 83735; 83880; 85027; 99212

== ENCOUNTER 2020-09-12 15:27 | Outpatient (REF) | payer OTHER, SELFPAY ==
[2020-09-12 16:29] LABS: Anion Gap 11 (12-20); Blood Urea Nitrogen 48 mg/dL (9-16); Calcium 9.2 mg/dL (8.4-10.2); Carbon Dioxide 31 mmol/L (22-29); Chloride 97 mmol/L (96-108); Estimated Glomerular Filt Rate 31; Glucose Random 417 mg/dL (60-115); Sodium 134 mmol/L (135-145)
[2020-09-12 16:30] LABS: B Type Natriuretic Peptide 75 pg/mL (<100)
== END 2020-09-12 15:28 | disposition home or self-care (01) ==
LOC: HO.LAB 15:27
PROVIDERS: PCP Internal Medicine; Visit Provider Internal Medicine Cardiovascular Disease
DX: I50.20 Unspecified systolic (congestive) heart failure (principal)
CPT/HCPCS: 36415; 80048; 83880

== ENCOUNTER 2020-11-01 15:00 | Outpatient (RCR) | payer OTHER, SELFPAY | END 2021-01-05 15:47 | disposition home or self-care (01) | LOC: HO.PT 15:00 | PROVIDERS: PCP Internal Medicine; Visit Provider Internal Medicine | DX: E11.40 Type 2 diabetes mellitus with diabetic neuropathy, unspecified (principal) | CPT/HCPCS: 97110; 97116; 97162 ==

== ENCOUNTER 2020-11-08 13:53 | Emergency (ER) | payer OTHER, SELFPAY ==
--- NOTE | 2020-11-08 | ECG_ITS ---
Test Reason : HEART FAILURE Blood Pressure : / mmHG Vent. Rate : 077 BPM Atrial Rate : 077 BPM P-R Int : 214 ms QRS Dur : 084 ms QT Int : 376 ms P-R-T Axes : 036 -26 140 degrees QTc Int : 425 ms Sinus rhythm with 1st degree A-V block Inferior infarct (cited on or before 20-SEP-2013) T wave abnormality, consider lateral ischemia Abnormal ECG When compared with ECG of 14-FEB-2020 14:04, No significant change was found Referred By: Generic ED Physician Electronically Signed By:EMMIE EDWARDS
--- NOTE | ~2020-11-08 | XR_ITS ---
EXAMINATION: XR CHEST CLINICAL INFORMATION: Dyspnea COMPARISON: 05/29/2020 TECHNIQUE: Frontal view of the chest was obtained. FINDINGS: Once again low lung volumes. No obvious failure or infiltrate. No effusion. Mild basilar atelectasis likely related to low lung volumes. XR/XR chest 1V IMPRESSION: Low lung volumes and continued significant elevation of the right hemidiaphragm. No acute finding
--- NOTE | ~2020-11-08 | US_ITS ---
EXAMINATION: US VENOUS ULTRASOUND WITH DOPPLER LOWER EXTREMITY, BILATERAL CLINICAL INFORMATION: Shortness of breath COMPARISON: None TECHNIQUE: Ultrasound of the deep veins is performed from the hip to the calf with compression sonography and color and pulse Doppler assessment. Spectral analysis with color-flow imaging is performed. FINDINGS: RIGHT: There is normal venous compression and respiratory variation and augmented flow. The visualized common femoral vein, superficial femoral vein, profunda femoral vein, popliteal vein, and the trifurcation region shows no evidence of deep venous thrombosis. There is no significant popliteal fossa cyst. LEFT: There is normal venous compression and respiratory variation and augmented flow. The visualized common femoral vein, superficial femoral vein, profunda femoral vein, popliteal vein, and the trifurcation region shows no evidence of deep venous thrombosis. There is no significant popliteal fossa cyst. If the patient's symptoms persist, followup ultrasound in 5 days 7 days might be of value to exclude proximal propagation from a non-visualized calf vein. US/US venous duplex LE BI IMPRESSION: No DVT demonstrated in the bilateral lower extremity.
--- NOTE | ~2020-11-08 | NM_ITS ---
EXAMINATION: NM LUNG IMAGE PERFUSION CLINICAL INFORMATION: Shortness of breath, question PE COMPARISON: Plain film same day TECHNIQUE: 2.5 mCi technetium MAA administered intravenously. Images obtained in various obliquities over the lung san. FINDINGS: Lack of perfusion to the right lower lung correlates with the elevated right hemidiaphragm There is mild heterogeneous perfusion but no segmental defect is felt to be present. NM/NM pul perfusion IMPRESSION: Findings as described above. This would constitute a low probability for pulmonary embolism
[2020-11-08 14:17] VITALS: PULSE 74; RESP 18; TEMP 36.6; O2SAT 96; BMI 29.6
[2020-11-08 15:03] LABS: MANUAL DIFF FLAG NO
--- NOTE | 2020-11-08 15:11 | PHA.MEDREC ---
Pharmacy Consult ? Medication Reconciliation Pharmacy has completed the medication reconciliation. There are no remarkable issues for provider's attention. Patient's daughter reports that patient use Lantus 30 units every night and when BG > 400 he will use 40 units. Ana Paula Sullivan, PharmD
[2020-11-08 15:12] LABS: Basophils Percent Auto 0.3 % (0-2); Eosinophils Absolute Auto 0.3 X10*3/uL (0.0-0.4); Eosinophils Percent Auto 3.5 % (0-4); Hematocrit 33.6 % (42-52); Hemoglobin 10.3 g/dl (14.0-18.0); Imm Gran Abs Auto 0.02 X10*3/uL (0.00-0.03); Imm Gran Pct Auto 0.2 % (0.0-0.4); Lymphocytes Absolute Auto 1.7 X10*3/uL (1.2-4.9); Lymphocytes Percent Auto 18.2 % (20-40); Mean Corpuscular HGB Conc 30.7 g/dl (31.0-36.0); Mean Corpuscular Hemoglobin 25.1 pg (27.0-33.0); Mean Corpuscular Volume 81.8 fL (80-98); Mean Platelet Volume 12.3 fL (9.4-12.4); Monocytes Absolute Auto 0.7 X10*3/uL (0.1-1.2); Monocytes Percent Auto 7.6 % (2-11); Neutrophils Absolute Auto 6.4 X10*3/uL (2.0-8.3); Neutrophils Percent Auto 70.2 % (45-73); Platelet Count 192 X10*3/uL (160-400); Red Blood Count 4.11 X10*6/uL (4.60-5.80); White Blood Count 9.2 X10*3/uL (4.8-10.8)
[2020-11-08 15:23] LABS: COVID-19 Test Negative (Negative)
[2020-11-08 15:32] LABS: Alanine Aminotransferase 24 U/L (0-40); Albumin Level 3.9 g/dL (3.5-5.0); Alkaline Phosphatase 60 U/L (39-117); Anion Gap 13 (12-20); Aspartate Amino Transferase 21 U/L (5-37); Bilirubin Direct 0.2 mg/dL (0.0-0.5); Bilirubin Total 0.5 mg/dL (0.0-1.0); Blood Urea Nitrogen 46 mg/dL (9-16); Calcium 9.1 mg/dL (8.4-10.2); Carbon Dioxide 29 mmol/L (22-29); Chloride 101 mmol/L (96-108); Creatinine Clr Calc Pharmacy 31.1; Estimated Glomerular Filt Rate 31; Glucose Random 205 mg/dL (60-115); Magnesium 2.1 mg/dL (1.6-2.6); Potassium 4.2 mmol/L (3.3-5.1); Sodium 139 mmol/L (135-145)
--- NOTE | 2020-11-08 15:33 | ED_ITS ---
HPI - SOB/Dyspnea General Chief Complaint: General Medical Stated Complaint: heart failure Time Seen by Provider: 11/08/20 14:26 Source: patient and family (Daughter ) Mode of arrival: ambulatory Limitations: no limitations History of Present Illness HPI Narrative: 70-year-old male with a past medical history of CHF currently on 2mg of Bumetanide BID, heart failure with reduced ejection fraction, CAD, ischemic cardiomyopathy, HTN, CKD, and diabetes presenting to the ED with his daughter at bedside with complaints of worsening shortness of breath/dyspnea on exertion and a dry cough over the past week. Reports that he followed up with his Doctor yesterday for regular follow-up and they instructed him and his daughter to come to the emergency department for further evaluation and treatment specifically daughter reports ?PCP told me that my father needs fluid removed for heart failure?. They report gain weight approximately 7 lb in the past month. He denies any dizziness, headaches, change in vision, na usea/vomiting, jaw pain, paresthesias, chest pain, palpitations, abdominal pain, back pain, dysuria, hematuria, rashes or any other symptoms complaints or concerns at this time. Reports he is taking all his medications as prescribed. MD elicited complaint: shortness of breath and cough Pertinent past history: congestive heart failure and diabetes Onset (ago): week(s) (Over the past week) Context: occurred during exertion Timing: constant and progressively worsening Severity: moderate Exacerbating factors: exertion and coughing Relieving factors: rest Known history of: congestive heart failure and diabetes Associated symptoms: cough Treatment prior to arrival: none Related Data Home oxygen amount: none Home Medications Medication Instructions Recorded Confirmed acetaminophen 500 mg tablet 1 tab PO Q6H PRN 02/13/20 11/08/20 lancets 28 gauge (FreeStyle 02/13/20 09/06/20 Lancets) pen needle, diabetic 32 gauge x 02/13/20 09/06/2032 (BD Ultra-Fine Tamera Pen Needle) atorvastatin 40 mg tablet 40 mg PO DAILY 06/06/20 11/08/20 cholecalciferol (vitamin D3) 25 25 mcg PO DAILY 06/06/20 11/08/20 mcg (1,000 unit) capsule omeprazole 20 mg capsule,delayed 20 mg PO DAILY 06/06/20 11/08/20 release melatonin 5 mg capsule 5 mg PO BEDTIME cap 07/18/20 11/08/20 bumetanide 2 mg tablet 2 mg PO BID 11/08/20 11/08/20 cetirizine 10 mg tablet (Allergy 10 mg PO DAILY PRN 11/08/20 11/08/20 Relief (cetirizine)) insulin glargine 100 unit/mL (3 10 unit SUBCUT BEDTIME PRN 11/08/20 11/08/20 mL) subcutaneous pen (Lantus Solostar U-100 Insulin) insulin glargine 100 unit/mL 30 unit SUBCUT BEDTIME 11/08/20 11/08/20 subcutaneous solution (Lantus U-100 Insulin) insulin lispro 100 unit/mL 7 - 9 unit SUBCUT TIDAC 11/08/20 11/08/20 subcutaneous pen lisinopril 40 mg tablet 40 mg PO DAILY 11/08/20 11/08/20 [id number] 0.4 mg-calcium 162 1 tab PO DAILY 11/08/20 11/08/20 mg-iron 18 [id number] tablet sitagliptin 50 mg tablet (Januvia) 50 mg PO DAILY 11/08/20 11/08/20 Previous Rx's Medication Instructions Recorded carvedilol 25 mg tablet 25 mg PO BID 90 Days #180 tab 01/05/20 hydralazine 25 mg tablet 25 mg PO BID #180 tab 10/13/20 Allergies Allergy/AdvReac Type Severity Reaction Status Date / Time No Known Allergies Allergy Verified 06/06/20 14:39 [No Known Allergies*] Review of Systems Review of Systems: Constitutional : Positive Weight Gain, No Weight loss, No Fever, No Chills, No Night Sweats, No Fatigue, No Malaise ENT/Mouth : No Hearing loss, No Ear Pain, No Nasal Congestion, No Sinus Pain, No Hoarseness, No sore throat, No Rhinorrhea, No Swallowing Difficulty Eyes: No Eye Pain, No Swelling, No Redness, No Foreign Body, No Discharge, No Vision Changes Cardiovascular : Positive SOB, Positive Dyspnea on Exertion, Positive LE Edema, No Orthopnea, No Palpitations, No Chest Pain Respiratory : No Cough, No Sputum, No Wheezing, No Dyspnea Gastrointestinal : No Nausea, No Vomiting, No Diarrhea, No abdominal Pain, No Hematochezia, No Melena Genitourinary : No irregular bleeding, No Dysuria, No Urinary Frequency, No Hematuria, No Urinary Incontinence, No Urgency, No Flank Pain, No Urinary Flow Changes, No Hesitancy Musculoskeletal : No joint pain, No Myalgias, No Joint Swelling Skin : No Skin Lesions, No rash Neuro : No Weakness, No Numbness, No Paresthesias, No Loss of Consciousness, No Dizziness, No Headache Psych : No Anxiety/Panic, No Depression, No SI/HI/AH/VH Heme/Lymph: No Bruising, No Bleeding,No Lymphadenopathy Endocrine : No Polyuria, No Polydipsia, No Temperature Intolerance Yes all other systems are reviewed and are negative [facility] Past Medical History Attestation statement: The following information was validated with the patient. Medical History Acute kidney injury superimposed on CKD CAD (coronary artery disease) Chronic kidney disease (CKD) Chronic kidney failure Congestive heart failure Diabetes mellitus Heart failure with reduced ejection fraction Hypertension Ischemic cardiomyopathy Surgical History Hx of CABG Social History Social History Household Members: None Housing: House Do you presently have visiting nurse or other home services: No Alcohol intake: never Advance Directives: Yes Advance Directives Information Provided: Yes Advance Directives on File: No service: No Current occupational status: retired Physical Exam Vital Signs: Vital Signs: Last Vital Signs Temp 98 F 11/08/20 14:17 Pulse 74 11/08/20 14:17 Resp 18 11/08/20 14:17 Pulse Ox 96 11/08/20 14:17 Body Mass Index 29.6 vital signs have been reviewed as normal and appeared to be correct. Blood pressure normal. Heart rate normal. Respiration rate normal. Temperature normal. Oxygen saturation normal. Appearance: Alert. Oriented X3. No acute distress. Head: Normal external exam. Normocephalic. Atraumatic. Eyes: PERRLA. EOMI. Conjunctiva and sclera normal. Eyelids normal. ENT: Pharynx normal. Uvula midline. Moist mucous membranes. Neck: Normal inspection. Neck supple. FROM. No adenopathy. No meningeal signs. CVS: Normal heart rate and rhythm. Heart sound normal. Pulses normal throughout. No murmurs/rales/gallops. Respiratory: No respiratory distress. Painless inspiration. Breath sounds normal. No wheezes/rales/rhonchi noted. Chest nontender. No accessory muscle usage noted or decreased air movement noted. Abdomen: Soft and nontender. Bowel sounds normal in all 4 quadrants. No distention noted. No organomegaly noted. No visible injury noted. Back: No CVA tenderness. Full range of motion noted. No rashes/lesion/induration/fluctuance or signs of infection noted. Skin: Skin warm and dry. Normal skin color. Normal skin turgor. No rashes/lesions/lacerations noted. Extremities: Positive +1 lower extremity edema. No Calf tenderness is noted. Extremities exhibit normal range of motion. Extremities nontender. Neuro: Oriented X 3. No motor deficit. No sensory deficit. Reflexes normal. Normal steady gait. No focal neuro deficits noted. Vascular: + radial pulses/+ 2 distal pedal pulses/+2 dorsalis pedis b/l. Normal cap refill. No cyanosis noted to upper extremity nails and lower extremity toes nails. Course Course Course Narrative: 14:30pm - 70-year-old male with a past medical history of CHF currently on 2mg of Bumetanide BID, heart failure with reduced ejection fraction, CAD, ischemic cardiomyopathy, HTN, CKD, and diabetes presenting to the ED with his daughter at bedside with complaints of worsening shortness of breath/dyspnea on exertion and a dry cough over the past week. They report gain weight approximately 7 lb in the past month. Plan: Labs, CXR, Covid swab, then re-evaluate Reevaluation(s) Reevaluation #1: - labs reviewed patient with mild baseline anemia similar when compared to prior. - BUN and creatinine at 46/2.10 similar when compared to prior. - Random glucose 205. - Troponin 10.6. - BNP 106. - otherwise all other labs are within normal limits. Patient will have a repeat troponin 3 hours. - EKG is sinus rhythm with 1st degree AV block with nonspecific T-wave abnorma lities similar compared to prior EKG no acute ischemic change are noted. - due to patient's BNP being 106 will obtain bilateral duplex ultrasound of lower extremity to evaluate for possible DVT will re-evaluate. Time: 16:01 Reevaluation #2: - venous duplex ultrasound of bilateral lower extremity negative for DVT or any other acute processes. - COVID swab negative. - chest x-ray revealed low lung volumes and continues significant elevation of the right hemidiaphragm no acute findings. - therefore patient will need a repeat troponin at 18:00, order a V/Q scan and will place a ambulating pulse oximetry exam and if troponin and ambulating pulse oximetry are normal patient can be discharged with increase of Bumex and f/u c PCP - Sign out to BRADLEY Mann pending repeat troponin, V/Q scan and ambulating pulse oximetry exam. Time: 17:03 MDM - SOB/Dyspnea Medical Records Attestation: I reviewed the patient's medical records. Lab Data Attestation: I reviewed the patient's lab results. Result diagrams: 11/08/20 14:57 11/08/20 14:58 Labs: Lab Results 11/08/20 11/08/20 11/08/20 Range/Units 14:57 14:57 14:58 WBC 9.2 (4.8-10.8) X10*3/uL RBC 4.11 L (4.60-5.80) X10*6/uL Hgb 10.3 L (14.0-18.0) g/dl Hct 33.6 L (42-52) % MCV 81.8 (80-98) fL MCH 25.1 L (27.0-33.0) pg MCHC 30.7 L (31.0-36.0) g/dl RDW 14.0 (11.0-16.0) % Plt Count 192 (160-400) X10*3/uL MPV 12.3 (9.4-12.4) fL Immature Gran % (Auto) 0.2 (0.0-0.4) % Neut % (Auto) 70.2 (45-73) % Lymph % (Auto) 18.2 L (20-40) % Rush % (Auto) 7.6 (2-11) % Eos % (Auto) 3.5 (0-4) % Baso % (Auto) 0.3 (0-2) % Lymph # (Auto) 1.7 (1.2-4.9) X10*3/uL Rush # (Auto) 0.7 (0.1-1.2) X10*3/uL Eos # (Auto) 0.3 (0.0-0.4) X10*3/uL Baso # (Auto) 0.0 (0.0-0.2) X10*3/uL Abs Immat Gran (auto) 0.02 (0.00-0.03) X10*3/uL Absolute Neuts (auto) 6.4 (2.0-8.3) X10*3/uL Absolute Nucleated RBC 0.000 (0.0-0.012) X10*3/uL Nucleated RBC % (auto) 0.0 (0.0-0.2) /100WBC Sodium 139 (135-145) mmol/L Potassium 4.2 (3.3-5.1) mmol/L Chloride 101 (96-108) mmol/L Carbon Dioxide 29 (22-29) mmol/L Anion Gap 13 (12-20) BUN 46 H (9-16) mg/dL Creatinine 2.10 H (0.5-1.4) mg/dL Estim Creat Clear Calc 31.1 Estimated GFR 31 Random Glucose 205 H D (60-115) mg/dL Calcium 9.1 (8.4-10.2) mg/dL Magnesium 2.1 (1.6-2.6) mg/dL Total Bilirubin 0.5 (0.0-1.0) mg/dL Direct Bilirubin 0.2 (0.0-0.5) mg/dL AST 21 (5-37) U/L ALT 24 (0-40) U/L Alkaline Phosphatase 60 (39-117) U/L Troponin I High Sens 10.6 (<3.5-35.0) ng/L B-Natriuretic Peptide 106 H (<100) pg/mL Total Protein 7.0 (6.5-8.0) g/dL Albumin 3.9 (3.5-5.0) g/dL COVID-19 ([facility]) (Negative) COVID-19 Clin Com 11/08/20 Range/Units 14:58 WBC (4.8-10.8) X10*3/uL RBC (4.60-5.80) X10*6/uL Hgb (14.0-18.0) g/dl Hct (42-52) % MCV (80-98) fL MCH (27.0-33.0) pg MCHC (31.0-36.0) g/dl RDW (11.0-16.0) % Plt Count (160-400) X10*3/uL MPV (9.4-12.4) fL Immature Gran % (Auto) (0.0-0.4) % Neut % (Auto) (45-73) % Lymph % (Auto) (20-40) % Rush % (Auto) (2-11) % Eos % (Auto) (0-4) % Baso % (Auto) (0-2) % Lymph # (Auto) (1.2-4.9) X10*3/uL Rush # (Auto) (0.1-1.2) X10*3/uL Eos # (Auto) (0.0-0.4) X10*3/uL Baso # (Auto) (0.0-0.2) X10*3/uL Abs Immat Gran (auto) (0.00-0.03) X10*3/uL Absolute Neuts (auto) (2.0-8.3) X10*3/uL Absolute Nucleated RBC (0.0-0.012) X10*3/uL Nucleated RBC % (auto) (0.0-0.2) /100WBC Sodium (135-145) mmol/L Potassium (3.3-5.1) mmol/L Chloride (96-108) mmol/L Carbon Dioxide (22-29) mmol/L Anion Gap (12-20) BUN (9-16) mg/dL Creatinine (0.5-1.4) mg/dL Estim Creat Clear Calc Estimated GFR Random Glucose (60-115) mg/dL Calcium (8.4-10.2) mg/dL Magnesium (1.6-2.6) mg/dL Total Bilirubin (0.0-1.0) mg/dL Direct Bilirubin (0.0-0.5) mg/dL AST (5-37) U/L ALT (0-40) U/L Alkaline Phosphatase (39-117) U/L Troponin I High Sens (<3.5-35.0) ng/L B-Natriuretic Peptide (<100) pg/mL Total Protein (6.5-8.0) g/dL Albumin (3.5-5.0) g/dL COVID-19 ([facility]) Negative (Negative) COVID-19 Clin Com See Note Imaging Data Chest x-ray: Attestation: I personally reviewed and interpreted this imaging study as follows: Radiologist's impression: FINDINGS: Once again low lung volumes. No obvious failure or infiltrate. No effusion. Mild basilar atelectasis likely related to low lung volumes. XR/XR chest 1V IMPRESSION: Low lung volumes and continued significant elevation of the right hemidiaphragm. No acute finding Venous duplex ultrasound of bilateral lower extremity: Attestation: I personally reviewed and interpreted this imaging study as follows: Radiologist's impression: RIGHT: There is normal venous compression and respiratory variation and augmented flow. The visualized common femoral vein, superficial femoral vein, profunda femoral vein, popliteal vein, and the trifurcation region shows no evidence of deep venous thrombosis. ? There is no significant popliteal fossa cyst. LEFT: There is normal venous compression and respiratory variation and augmented flow. The visualized common femoral vein, superficial femoral vein, profunda femoral vein, popliteal vein, and the trifurcation region shows no evidence of deep venous thrombosis. ? There is no significant popliteal fossa cyst. If the patient's symptoms persist, followup ultrasound in 5 days 7 days might be of value to exclude proximal propagation from a non-visualized calf vein. US/US venous duplex LE BI IMPRESSION: No DVT demonstrated in the bilateral lower extremity. ECG Data Attestation: I personally reviewed and interpreted this ECG as follows: ECG interpretation date: 11/08/20 ECG interpretation time: 14:04 Interpretation: Sinus rhythm with first Degree AV Block with a ventricular rate of 77 with nonspecific T wave abnormality no acute ischemic changes noted. Similar when compared to prior EKG on 02/14/2020 Critical Care Time Critical Care Time Critical Care Time: Yes Total Critical Care Time: 60 Attestation: I personally attest to this time spent taking care of the patient Discharge Plan Discharge Clinical Impression: Breath, shortness Prescriptions: No Action carvedilol 25 mg tablet 25 mg PO BID 90 Days Qty: 180 RF: 3 hydralazine 25 mg tablet 25 mg PO BID Qty: 180 RF: 1 acetaminophen 500 mg tablet 1 tab PO Q6H PRN (Reason: Pain) RF: 0 (DME) pen needle, diabetic [BD Ultra-Fine Tamera Pen Needle] 32 gauge x 5/32 needle MISCELLANEOUS QID RF: 0 (DME) lancets [FreeStyle Lancets] 28 gauge misc 1 gauge MISCELLANEOUS TID RF: 0 lisinopril 40 mg tablet 40 mg PO DAILY RF: 0 insulin lispro 100 unit/mL insulin pen 7 - 9 unit subcut TIDAC RF: 0 Januvia 50 mg tablet 50 mg PO DAILY RF: 0 Lantus U-100 Insulin 100 unit/mL solution 30 unit subcut BEDTIME RF: 0 bumetanide 2 mg tablet 2 mg PO BID RF: 0 Lantus Solostar U-100 Insulin 100 unit/mL (3 mL) insulin pen 10 unit subcut BEDTIME PRN (Reason: BG > 400) RF: 0 cetirizine [Allergy Relief (cetirizine)] 10 mg Tablet 10 mg PO DAILY PRN (Reason: Allergy Symptoms) RF: 0 Centrum 0.4-162-18 mg Tablet 1 tab PO DAILY RF: 0 atorvastatin 40 mg tablet 40 mg PO DAILY RF: 0 omeprazole 20 mg capsule,delayed release(DR/EC) 20 mg PO DAILY RF: 0 cholecalciferol (vitamin D3) 25 mcg (1,000 unit) capsule 25 mcg PO DAILY RF: 0 melatonin 5 mg capsule 5 mg PO BEDTIME RF: 0
[2020-11-08 15:38] LABS: B Type Natriuretic Peptide 106 pg/mL (<100); Troponin-I High Sensitivity 10.6 ng/L (<3.5-35.0)
[2020-11-08 17:45] VITALS: BP 146/77; PULSE 72; RESP 20; TEMP 36.6; O2SAT 96
[2020-11-08 18:32] LABS: Troponin-I High Sensitivity 9.4 ng/L (<3.5-35.0)
[2020-11-08 19:28] VITALS: BP 179/90; PULSE 72; RESP 18; TEMP 36.5; O2SAT 90; O2SAT 99
--- NOTE | 2020-11-08 19:29 | PC.NURSE ---
Afua Dorsey, RN notified this RN that she found pt out of bed, standing, huffing and puffing, returned pt to bed and observed his O2 sat was 90%. Pt placed on 2L NC. This RN to bedside, pt 100% on 2L NC. Pt titrated to RA, sat 98-100%. Mackenzie NECKTIE MAKER aware that pt becomes hypoxic with exertion. This RN used video interpretation (Uzbek) for pt. Pt has difficulty findings words at times, and responds mostly to Angolan/in Angolan. Pt's daughter at bedside, states pt can speak both Uzbek and Angolan, but due to his mental state, he sometimes doesn't talk at all, stutters, or he uses both. Pt and daughter aware of plan for admission d/t hypoxia on exertion. Pt with fall alert bracelet on, red fall prevention socks, and red star posted out of room. Stretcher low locked, rails raised, call machado within reach.
[2020-11-08 20:13] LABS: Appearance Urine CLEAR; Color Urine YELLOW; Glucose Urine UA NEG (NEG); Leukocyte Esterase Urine NEG (NEG); Nitrite Urine NEG (NEG); PH 6.5 (5.0-8.0); Urine Blood NEG (NEG); Urine Ketones NEG (NEG); Urine Protein TRACE MG/DL (NEG-TRACE)
[2020-11-08 20:32] LABS: ABG Base Excess 6.2 mmol/L; ABG HCO3 27 mmol/L (22-26); ABG pCO2 29 mmHg (32-45); ABG pH 7.57 (7.35-7.45); ABG pO2 137 mmHg (83-108)
--- NOTE | 2020-11-08 21:36 | HO.PM.IMCN ---
History of Present Illness Data of Consult Service Date: 11/08/20 Primary Care Provider: Cecille Mccollum MD [facility] Reason for consult: Evaluate for admission for SOB 70-year-old male with history of CKD, CHF, CAD, diabetes mellitus, who presented with shortness of breath. History is from ED physician notes, ED midlevel, as well as discussion with the patient's daughter via telephone. Patient himself does not speak Ecuadorean. Therefore I did contact the patient's daughter (Evelio: [phone]). Apparently, over the past 2 months, the patient has gained about 7 lb. Also, he is having worsening dyspnea on exertion and shortness of breath. Otherwise, there is no reported fever, chills, cough, chest pain. Patient went to the primary care physician's office today, and was referred to the ED for ?fluid removal for heart failure ?. In the ED, the patient was satting (at lowest) 90% on room air. We did ambulate the patient, but unfortunately during ambulation the pulse ox monitoring was not working correctly; however, after the patient returned to his bed, he was found to be satting 92-94% on room air. Otherwise vitals are unremarkable. Pertinent labs include: BNP of 106 COVID negative V/Q scan negative Chest x-ray negative for acute issues ABG as follows: PH 7.57, pCO2 29.4, PO2 136.5 (on room air). Physical exam does show that the patient was wheezing, otherwise no evidence of fluid overload. I did have a discussion with the patient's daughter, and endorsed that the patient does not seem to be in CHF exacerbation or even COPD exacerbation, does not have evidence of a pulmonary emboli, and is COVID negative. I explained to the daughter that, at this point, I believe that the patient is stable for discharge from the ED, with follow-up with primary care physician. I answered the daughter's questions, and daughter was agreeable to having the patient be discharged from the ED. I did speak with the mid-level in the ED (slade), who was agreeable to this plan. I am not exactly sure why the patient is short of breath, but suspect that has something to do with the patient's wheezing. I did ask the daughter about the patient's history of smoking, daughter states that the patient does not smoke, and has not been exposed to harmful chemicals that she knows of; therefore I think that pulmonary fibrosis is also less likely. Patient to follow-up with primary care physician. [facility] Medical History Acute kidney injury superimposed on CKD CAD (coronary artery disease) Chronic kidney disease (CKD) Chronic kidney failure Congestive heart failure Diabetes mellitus Heart failure with reduced ejection fraction Hypertension Ischemic cardiomyopathy Surgical History Hx of CABG Social History Household Members: None Housing: House Do you presently have visiting nurse or other home services: No Alcohol intake: never Advance Directives: Yes Advance Directives Information Provided: Yes Advance Directives on File: No service: No Current occupational status: retired [employer] Allergies Allergy/AdvReac Type Severity Reaction Status Date / Time No Known Allergies Allergy Verified 06/06/20 14:39 [No Known Allergies*] Active Medications: Current Medications Generic Name Dose Route Start Last Admin Trade Name Freq PRN Reason Stop Dose Admin Pharmacy Consult 1 each 11/08/20 14:27 Consult Rx Perform Med Rec MISCELLANE ONCE PRN Consult order Home Medications Medication Instructions Recorded Confirmed Last Taken Type acetaminophen 500 mg tablet 1 tab PO Q6H PRN 02/13/20 11/08/20 Unknown History lancets 28 gauge (FreeStyle 02/13/20 09/06/20 Unknown History Lancets) pen needle, diabetic 32 gauge x 02/13/20 09/06/20 Unknown History (BD Ultra-Fine Tamera Pen Needle) atorvastatin 40 mg tablet 40 mg PO DAILY 06/06/20 11/08/20 11/08/20 History cholecalciferol (vitamin D3) 25 25 mcg PO DAILY 06/06/20 11/08/20 11/08/20 History mcg (1,000 unit) capsule omeprazole 20 mg capsule,delayed 20 mg PO DAILY 06/06/20 11/08/20 11/08/20 History release melatonin 5 mg capsule 5 mg PO BEDTIME cap 07/18/20 11/08/20 11/08/20 History bumetanide 2 mg tablet 2 mg PO BID 11/08/20 11/08/20 11/08/20 History cetirizine 10 mg tablet (Allergy 10 mg PO DAILY PRN 11/08/20 11/08/20 Unknown History Relief (cetirizine)) insulin glargine 100 unit/mL (3 10 unit SUBCUT BEDTIME PRN 11/08/20 11/08/20 Unknown History mL) subcutaneous pen (Lantus Solostar U-100 Insulin) insulin glargine 100 unit/mL 30 unit SUBCUT BEDTIME 11/08/20 11/08/20 11/07/20 History subcutaneous solution (Lantus U-100 Insulin) insulin lispro 100 unit/mL 7 - 9 unit SUBCUT TIDAC 11/08/20 11/08/20 11/08/20 History subcutaneous pen lisinopril 40 mg tablet 40 mg PO DAILY 11/08/20 11/08/20 11/08/20 History [id number]-jny-SZ 0.4 mg-calcium 162 1 tab PO DAILY 11/08/20 11/08/20 11/08/20 History mg-iron 18 aj-jxjsiyb-kxinqk tablet sitagliptin 50 mg tablet (Januvia) 50 mg PO DAILY 11/08/20 11/08/20 11/08/20 History Physical Exam Vital Signs and Narrative: Vital Signs: Last Vital Signs Temp 97.7 F 11/08/20 19:28 Pulse 72 11/08/20 19:28 Resp 18 11/08/20 19:28 BP 179/90 H 11/08/20 19:28 Pulse Ox 90 L 11/08/20 19:28 Body Mass Index 29.6 Results Labs CBC and Chem 7: 11/08/20 14:57 11/08/20 14:58 Labs: Laboratory Results - last 24 hr 11/08/20 11/08/20 11/08/20 14:57 14:57 14:58 MCV 81.8 MCH 25.1 L MCHC 30.7 L RDW 14.0 Plt Count 192 MPV 12.3 Immature Gran % (Auto) 0.2 Neut % (Auto) 70.2 Lymph % (Auto) 18.2 L [place] % (Auto) 7.6 Eos % (Auto) 3.5 Baso % (Auto) 0.3 Lymph # (Auto) 1.7 [place] # (Auto) 0.7 Eos # (Auto) 0.3 Baso # (Auto) 0.0 Abs Immat Gran (auto) 0.02 Absolute Neuts (auto) 6.4 Absolute Nucleated RBC 0.000 Nucleated RBC % (auto) 0.0 O2 Saturation ABG pH at Pt Temp ABG pCO2 at Pt Temp ABG pO2 at Pt Temp ABG HCO3 ABG Base Excess (Actual) Anion Gap 13 Estim Creat Clear Calc 31.1 Estimated GFR 31 Random Glucose 205 H D Calcium 9.1 Magnesium 2.1 Total Bilirubin 0.5 Direct Bilirubin 0.2 AST 21 ALT 24 Alkaline Phosphatase 60 Troponin I High Sens 10.6 B-Natriuretic Peptide 106 H Total Protein 7.0 Albumin 3.9 Urine Color Urine Appearance Urine pH Ur Specific [place] Urine Protein Urine Glucose (UA) Urine Ketones Urine Blood Urine Nitrite Ur Leukocyte Esterase COVID-19 ([facility]) COVID-19 [employer] 11/08/20 11/08/20 11/08/20 14:58 17:51 19:50 MCV MCH MCHC RDW Plt Count MPV Immature Gran % (Auto) Neut % (Auto) Lymph % (Auto) [place] % (Auto) Eos % (Auto) Baso % (Auto) Lymph # (Auto) [place] # (Auto) Eos # (Auto) Baso # (Auto) Abs Immat Gran (auto) Absolute Neuts (auto) Absolute Nucleated RBC Nucleated RBC % (auto) O2 Saturation ABG pH at Pt Temp ABG pCO2 at Pt Temp ABG pO2 at Pt Temp ABG HCO3 ABG Base Excess (Actual) Anion Gap Estim Creat Clear Calc Estimated GFR Random Glucose Calcium Magnesium Total Bilirubin Direct Bilirubin AST ALT Alkaline Phosphatase Troponin I High Sens 9.4 B-Natriuretic Peptide Total Protein Albumin Urine Color YELLOW Urine Appearance CLEAR Urine pH 6.5 Ur Specific [place] 1.010 Urine Protein TRACE Urine Glucose (UA) NEG Urine Ketones NEG Urine Blood NEG Urine Nitrite NEG Ur Leukocyte Esterase NEG COVID-19 ([facility]) Negative COVID-19 [employer] Com See Note 11/08/20 20:24 MCV MCH MCHC RDW Plt Count MPV Immature Gran % (Auto) Neut % (Auto) Lymph % (Auto) [place] % (Auto) Eos % (Auto) Baso % (Auto) Lymph # (Auto) [place] # (Auto) Eos # (Auto) Baso # (Auto) Abs Immat Gran (auto) Absolute Neuts (auto) Absolute Nucleated RBC Nucleated RBC % (auto) O2 Saturation 99.0 ABG pH at Pt Temp 7.57 H ABG pCO2 at Pt Temp 29 L ABG pO2 at Pt Temp 137 H ABG HCO3 27 H ABG Base Excess (Actual) 6.2 Anion Gap Estim Creat Clear Calc Estimated GFR Random Glucose Calcium Magnesium Total Bilirubin Direct Bilirubin AST ALT Alkaline Phosphatase Troponin I High Sens B-Natriuretic Peptide Total Protein Albumin Urine Color Urine Appearance Urine pH Ur Specific [place] Urine Protein Urine Glucose (UA) Urine Ketones Urine Blood Urine Nitrite Ur Leukocyte Esterase COVID-19 ([facility]) COVID-19 Clin Com Imaging Radiologist's Impressions: Impressions Chest X-Ray 11/08/20 14:27 IMPRESSION: Low lung volumes and continued significant elevation of the right hemidiaphragm. No acute finding Venous Duplex 11/08/20 15:59 IMPRESSION: No DVT demonstrated in the bilateral lower extremity. Pulmonary Perfusion Imaging 11/08/20 17:21 IMPRESSION: Findings as described above. This would constitute a low probability for pulmonary embolism Assessment and Plan (1) Breath, shortness: Status: Acute I had a discussion with the patient's daughter (please see above). At this point in time, I do feel that the patient is stable for discharge from the ED, with follow-up to primary care physician.
--- NOTE | 2020-11-08 22:05 | PC.NURSE ---
This RN spoke with pt's daughter Evelio. Dgtr is agreeable to plan for discharge after hospitalist assessed pt and deemed pt not necessary for admission. Pt refusing breathing tx per RT at this time, provider aware.
== END 2020-11-08 22:50 | disposition home or self-care (01) ==
PROVIDERS: Nurse Practitioner Family; Physician Assistant Medical; Emergency Provider Emergency Medicine; PCP Internal Medicine
DX: R06.02 Shortness of breath (principal); E11.22 Type 2 diabetes mellitus with diabetic chronic kidney disease; I13.0 Hypertensive heart and chronic kidney disease with heart failure and stage 1 through stage 4 chronic kidney disease, or unspecified chronic kidney disease; N18.9 Chronic kidney disease, unspecified; I50.9 Heart failure, unspecified; Z79.4 Long term (current) use of insulin; Z79.899 Other long term (current) drug therapy; Z79.02 Long term (current) use of antithrombotics/antiplatelets; Z20.822 Contact with and (suspected) exposure to COVID-19
CPT/HCPCS: 36415; 71045; 78580; 80048; 80076; 81003; 82803; 83735; 83880; 84484; 85025; 87635; 93005; 93970; 99234; 99284; 99291; A9540

== ENCOUNTER 2020-12-05 01:09 | Inpatient (IN) | payer OTHER, SELFPAY ==
[2020-12-05] VITALS (10 sets, daily range): BP systolic 97–157; BP diastolic 49–80; PULSE 84–97; RESP 6–23; TEMP 36.1–37.1; O2SAT 93–100; BMI 29.6
--- NOTE | 2020-12-05 | ECG_ITS ---
Test Reason : CHEST TIGHTNESS Blood Pressure : / mmHG Vent. Rate : 095 BPM Atrial Rate : 095 BPM P-R Int : 216 ms QRS Dur : 084 ms QT Int : 362 ms P-R-T Axes : 074 -23 088 degrees QTc Int : 454 ms Sinus rhythm with 1st degree A-V block with occasional Premature ventricular complexes Inferior infarct (cited on or before 20-SEP-2013) T wave abnormality, consider lateral ischemia Abnormal ECG When compared with ECG of 08-NOV-2020 14:04, Premature ventricular complexes are now Present Referred By: Jessica Escalera Electronically Signed By:EMMIE EDWARDS
--- NOTE | ~2020-12-05 | XR_ITS ---
EXAMINATION: XR CHEST CLINICAL INFORMATION: This is a 70-year-old male with fever. COMPARISON: Comparison is made to a previous CT scan of the chest dated 12/05/2020 and an x-ray of the chest dated 12/05/2020. TECHNIQUE: Frontal view of the chest was obtained. FINDINGS: There is patchy ill-defined infiltrate in the left lower lobe with volume loss. This may represent subsegmental pneumonitis. This appears more pronounced on the current examination when compared to the previous. There is considerable volume loss again noted in the right lung field with elevation of the right hemidiaphragm. This appears unchanged. There is likely persistent right middle lobe atelectasis or subsegmental infiltrate. There is increased haziness over the right hemidiaphragm which may represent increased right lower lobe subsegmental pneumonitis. Again noted is widening of the trachea consistent with the previously-suggested tracheomalacia. There is no pneumothorax. The patient is status post median sternotomy. There is mild cardiomegaly. The pulmonary vascularity appears within normal limits for the technique. XR/XR chest 1V IMPRESSION: 1. Changes bilaterally consistent with subsegmental pneumonitis, most likely increased in the left lower lobe. 2. There is persistent volume loss in the right hemithorax with elevation of the right hemidiaphragm.
--- NOTE | ~2020-12-05 | CT_ITS ---
EXAM: NONCONTRAST CT OF THE CHEST; NONCONTRAST CT OF THE ABDOMEN AND PELVIS INDICATION: Shortness of breath, leukocytosis, abdominal discomfort, hematuria COMPARISON: Chest x-ray from earlier today TECHNIQUE: No IV contrast was utilized. Multidetector helical imaging was performed through the chest, abdomen, and pelvis. Coronal and sagittal reformatted images were created at the technologist workstation. DOSE LOWERING TECHNIQUES: This CT examination was performed using dose optimization techniques as appropriate, variously including the following: - Automated exposure control - Adjustment of mA and/or kV according to patient size (this includes techniques or standardized protocols for targeted exams were dose is matched to indication/reason for exam; i.e. extremities or head) - Use of iterative reconstruction technique DLP: 731 mGy-cm FINDINGS: Chest: The posterior wall the trachea is collapsed, which has the appearance of tracheomalacia. There is subsegmental atelectasis in the lingula and right lower lobe. The right middle lobe appears collapsed adjacent to the elevated right hemidiaphragm. No pneumothorax or pleural effusion. The visualized thyroid gland is unremarkable. There are subcentimeter mediastinal lymph nodes within the range of normal variation. Redemonstrated paratracheal lymph node calcification. Cardiac size is within normal limits; no pericardial effusion. Coronary artery calcifications are present. Status post CABG. No axillary lymphadenopathy is present. Degenerative changes are noted in the spine. Abdomen/Pelvis: Limited assessment in some regions due to motion artifact. The liver is homogeneous in attenuation without intrahepatic biliary ductal dilatation. The gallbladder is unremarkable. The unenhanced spleen, pancreas, and adrenal glands are within normal limits. The unenhanced kidneys are unremarkable without hydronephrosis. No renal or ureteral calculi are present. The urinary bladder is unremarkable. The prostate and seminal vesicles are unremarkable. The small and large bowel are unremarkable without evidence of obstruction or pericolonic inflammatory change. No free fluid or free air is present. Scattered vascular calcifications are noted. No retroperitoneal or pelvic lymphadenopathy is seen. Degenerative changes are noted in the spine. CT/CT abdomen pelvis wo con IMPRESSION: 1. No acute findings identified in the chest/abdomen/pelvis. 2. Tracheomalacia. 3. Bibasilar atelectasis, greatest in the right middle lobe adjacent to the elevated hemidiaphragm.
--- NOTE | ~2020-12-05 | XR_ITS ---
EXAMINATION: XR CHEST CLINICAL INFORMATION: Shortness of breath COMPARISON: 11/08/2020 TECHNIQUE: Frontal view of the chest was obtained. FINDINGS: Redemonstrated right hemidiaphragm elevation. Partial atelectasis of the adjacent right lung base is suspected. No new consolidation is seen. No evidence of pneumothorax, pleural effusion, or pulmonary edema. The cardiomediastinal silhouette is stable. No acute osseous findings are seen. XR/XR chest 1V IMPRESSION: Redemonstrated right hemidiaphragm elevation without additional acute findings.
--- NOTE | 2020-12-05 01:41 | ED.CHESTPAIN ---
HPI - Chest Pain General Chief Complaint: Chest Pain Stated Complaint: SOB/wheezing Time Seen by Provider: 12/05/20 01:40 Source: patient and family (Daughter) Mode of arrival: ambulatory History of Present Illness HPI narrative: 70-year-old male who reports chest tightness and pressure that began at 8:30 p.m. this evening and was associated with diaphoresis and shortness of breath accompanying the pain. Past medical history is significant for CHF currently on 2mg of Bumetanide BID, heart failure with reduced ejection fraction, CAD, ischemic cardiomyopathy, HTN, CKD, and diabetes. Related Data Home Medications Medication Instructions Recorded Confirmed acetaminophen 500 mg tablet 1 tab PO Q6H PRN 02/13/20 11/08/20 lancets 28 gauge (FreeStyle 02/13/20 09/06/20 Lancets) pen needle, diabetic 32 gauge x 02/13/20 09/06/20 (BD Ultra-Fine Tamera Pen Needle) atorvastatin 40 mg tablet 40 mg PO DAILY 06/06/20 11/08/20 cholecalciferol (vitamin D3) 25 25 mcg PO DAILY 06/06/20 11/08/20 mcg (1,000 unit) capsule omeprazole 20 mg capsule,delayed 20 mg PO DAILY 06/06/20 11/08/20 release melatonin 5 mg capsule 5 mg PO BEDTIME cap 07/18/20 11/08/20 bumetanide 2 mg tablet 2 mg PO BID 11/08/20 11/08/20 cetirizine 10 mg tablet (Allergy 10 mg PO DAILY PRN 11/08/20 11/08/20 Relief (cetirizine)) insulin glargine 100 unit/mL (3 10 unit SUBCUT BEDTIME PRN 11/08/20 11/08/20 mL) subcutaneous pen (Lantus Solostar U-100 Insulin) insulin glargine 100 unit/mL 30 unit SUBCUT BEDTIME 11/08/20 11/08/20 subcutaneous solution (Lantus U-100 Insulin) insulin lispro 100 unit/mL 7 - 9 unit SUBCUT TIDAC 11/08/20 11/08/20 subcutaneous pen lisinopril 40 mg tablet 40 mg PO DAILY 11/08/20 11/08/20 [id number]-yvw-BZ 0.4 mg-calcium 162 1 tab PO DAILY 11/08/20 11/08/20 mg-iron 18 ve-szrclaz-vwakpd tablet sitagliptin 50 mg tablet (Januvia) 50 mg PO DAILY 11/08/20 11/08/20 Previous Rx's Medication Instructions Recorded carvedilol 25 mg tablet 25 mg PO BID 90 Days #180 tab 01/05/20 hydralazine 25 mg tablet 25 mg PO BID #180 tab 10/13/20 Allergies Allergy/AdvReac Type Severity Reaction Status Date / Time No Known Allergies Allergy Verified 06/06/20 14:39 [No Known Allergies*] Review of Systems Review of Systems: Pertinent positives and negatives as stated in the HPI and 10 point review of systems is otherwise negative PMFSH Past Medical History Source: nursing notes reviewed Medical History Acute kidney injury superimposed on CKD CAD (coronary artery disease) Chronic kidney disease (CKD) Chronic kidney failure Congestive heart failure Diabetes mellitus Heart failure with reduced ejection fraction Hypertension Ischemic cardiomyopathy Surgical History Hx of CABG Social History Social History Household Members: None Housing: House Do you presently have visiting nurse or other home services: No Alcohol intake: never Patient Tobacco Use Status: Never used Tobacco Use of substances other than those prescribed or required for medical reasons: No Advance Directives: No Advance Directives Information Provided: No service: No Current occupational status: retired Physical Exam Vital Signs: Vital Signs: Last Vital Signs Temp 98.0 F 12/05/20 01:31 Pulse 97 12/05/20 06:15 Resp 20 12/05/20 06:15 BP 138/79 12/05/20 06:15 Pulse Ox 100 12/05/20 06:15 Body Mass Index 29.6 VITAL SIGNS: Reviewed. GENERAL: Well developed, well nourished, in no acute distress. HEAD: Normocephalic/atraumatic, EYES: PERRLA, EOMI OROPHARYNX: no oral lesions noted, posterior pharynx clear LUNGS: Decreased breath sounds, increased work of breathing, rales noted SpO2<93> CARDIOVASCULAR: Regular rate and rhythm without noted murmurs, no JVD or lower extremity edema. ABDOMEN: Soft, non-tender, non-distended with bowel sounds. MUSCULOSKELETAL: No tenderness, deformities, or effusions noted on gross inspection. EXTREMITIES: No cyanosis, clubbing or edema. SKIN: Inspection of the skin reveals no rashes NEUROLOGIC: Alert and oriented x 4. Strength and sensation to light touch were grossly intact x 4. Course Course Course Narrative: This is a 70-year-old male with extensive cardiac history and clinically appeared to be an CHF exacerbation and was provided with Lasix. On review of all laboratory investigations there was demonstration of CA on CKD as well as a leukocytosis and hyperglycemia. Abdominal exam was benign in urinalysis was negative but given patient's leukocytosis and respiratory difficulty proceeded with noncontrast CT of chest/abdomen/pelvis without acute findings other than demonstration of tracheomalacia. Patient has progressively become more comfortable and is no longer audibly wheezing and work of breathing has improved significantly. Patient was provided with subcutaneous insulin and VBG demonstrates mild CO2 retention without known history of COPD and may be secondary to identified tracheomalacia. Case discussed with inpatient hospitalist who accepts admission. MDM - Chest Pain MDM Narrative Medical decision making narrative: 70-year-old male with extensive cardiovascular history and clinical presentation consistent with acute onset CHF exacerbation and possible pneumonia. Otherwise, there are no acute changes on EKG when compared to prior and patient placed on 2 L of supplemental oxygen for comfort. Lab Data Result diagrams: 12/05/20 02:15 12/05/20 02:15 Labs: Lab Results 12/05/20 12/05/20 12/05/20 Range/Units 02:15 02:15 02:15 WBC 14.0 H (4.8-10.8) X10*3/uL RBC 4.24 L (4.60-5.80) X10*6/uL Hgb 10.7 L (14.0-18.0) g/dl Hct 34.9 L (42-52) % MCV 82.3 (80-98) fL MCH 25.2 L (27.0-33.0) pg MCHC 30.7 L (31.0-36.0) g/dl RDW 14.1 (11.0-16.0) % Plt Count 190 (160-400) X10*3/uL MPV 12.6 H (9.4-12.4) fL Immature Gran % (Auto) 0.4 (0.0-0.4) % Neut % (Auto) 79.8 H (45-73) % Lymph % (Auto) 11.3 L (20-40) % [place] % (Auto) 6.4 (2-11) % Eos % (Auto) 2.0 (0-4) % Baso % (Auto) 0.1 (0-2) % Lymph # (Auto) 1.6 (1.2-4.9) X10*3/uL [place] # (Auto) 0.9 (0.1-1.2) X10*3/uL Eos # (Auto) 0.3 (0.0-0.4) X10*3/uL Baso # (Auto) 0.0 (0.0-0.2) X10*3/uL Abs Immat Gran (auto) 0.06 H (0.00-0.03) X10*3/uL Absolute Neuts (auto) 11.1 H (2.0-8.3) X10*3/uL Absolute Nucleated RBC 0.000 (0.0-0.012) X10*3/uL Nucleated RBC % (auto) 0.0 (0.0-0.2) /100WBC VBG pH (7.32-7.43) VBG pCO2 mmHg VBG pO2 mmHg VBG HCO3 (22-26) mmol/L VBG O2 Saturation % VBG Base Excess mmol/L Sodium 139 (135-145) mmol/L Potassium 5.1 D (3.3-5.1) mmol/L Chloride 101 (96-108) mmol/L Carbon Dioxide 30 H (22-29) mmol/L Anion Gap 13 (12-20) BUN 55 H (9-16) mg/dL Creatinine 2.59 H (0.5-1.4) mg/dL Estim Creat Clear Calc 25.2 Estimated GFR 24 POC Glucose (60-115) mg/dL Random Glucose 463 H* (60-115) mg/dL Lactic Acid (0.5-2.0) mmol/L Calcium 9.2 (8.4-10.2) mg/dL Total Bilirubin 0.5 (0.0-1.0) mg/dL AST 23 (5-37) U/L ALT 18 (0-40) U/L Alkaline Phosphatase 63 (39-117) U/L Troponin I High Sens 14.0 (<3.5-35.0) ng/L B-Natriuretic Peptide 71 (<100) pg/mL Total Protein 7.1 (6.5-8.0) g/dL Albumin 4.0 (3.5-5.0) g/dL Urine Color Urine Appearance Urine pH (5.0-8.0) Ur Specific [place] (1.005-1.025) Urine Protein (NEG-TRACE) MG/DL Urine Glucose (UA) (NEG) MG/DL Urine Ketones (NEG) MG/DL Urine Blood (NEG) Urine Nitrite (NEG) Ur Leukocyte Esterase (NEG) Urine RBC (0) /HPF Urine WBC (0-4) /HPF Ur Squamous Epith Cells /LPF Urine Bacteria /LPF Acetone, Qual Negative (Negative) COVID-19 ([facility]) (Negative) COVID-19 Clin Com 12/05/20 12/05/20 12/05/20 Range/Units 02:15 02:23 04:18 WBC (4.8-10.8) X10*3/uL RBC (4.60-5.80) X10*6/uL Hgb (14.0-18.0) g/dl Hct (42-52) % MCV (80-98) fL MCH (27.0-33.0) pg MCHC (31.0-36.0) g/dl RDW (11.0-16.0) % Plt Count (160-400) X10*3/uL MPV (9.4-12.4) fL Immature Gran % (Auto) (0.0-0.4) % Neut % (Auto) (45-73) % Lymph % (Auto) (20-40) % [place] % (Auto) (2-11) % Eos % (Auto) (0-4) % Baso % (Auto) (0-2) % Lymph # (Auto) (1.2-4.9) X10*3/uL [place] # (Auto) (0.1-1.2) X10*3/uL Eos # (Auto) (0.0-0.4) X10*3/uL Baso # (Auto) (0.0-0.2) X10*3/uL Abs Immat Gran (auto) (0.00-0.03) X10*3/uL Absolute Neuts (auto) (2.0-8.3) X10*3/uL Absolute Nucleated RBC (0.0-0.012) X10*3/uL Nucleated RBC % (auto) (0.0-0.2) /100WBC VBG pH (7.32-7.43) VBG pCO2 mmHg VBG pO2 mmHg VBG HCO3 (22-26) mmol/L VBG O2 Saturation % VBG Base Excess mmol/L Sodium (135-145) mmol/L Potassium (3.3-5.1) mmol/L Chloride (96-108) mmol/L Carbon Dioxide (22-29) mmol/L Anion Gap (12-20) BUN (9-16) mg/dL Creatinine (0.5-1.4) mg/dL Estim Creat Clear Calc Estimated GFR POC Glucose (60-115) mg/dL Random Glucose (60-115) mg/dL Lactic Acid 0.9 (0.5-2.0) mmol/L Calcium (8.4-10.2) mg/dL Total Bilirubin (0.0-1.0) mg/dL AST (5-37) U/L ALT (0-40) U/L Alkaline Phosphatase (39-117) U/L Troponin I High Sens (<3.5-35.0) ng/L B-Natriuretic Peptide (<100) pg/mL Total Protein (6.5-8.0) g/dL Albumin (3.5-5.0) g/dL Urine Color YELLOW Urine Appearance CLEAR Urine pH 6.0 (5.0-8.0) Ur Specific [place] 1.010 (1.005-1.025) Urine Protein NEG (NEG-TRACE) MG/DL Urine Glucose (UA) 500 H (NEG) MG/DL Urine Ketones NEG (NEG) MG/DL Urine Blood 2+ H (NEG) Urine Nitrite NEG (NEG) Ur Leukocyte Esterase NEG (NEG) Urine RBC 10-14 H (0) /HPF Urine WBC 0-2 (0-4) /HPF Ur Squamous Epith Cells TRACE /LPF Urine Bacteria NONE /LPF Acetone, Qual (Negative) COVID-19 ([facility]) Negative (Negative) COVID-19 Clin Com See Note 12/05/20 12/05/20 Range/Units 06:23 06:32 WBC (4.8-10.8) X10*3/uL RBC (4.60-5.80) X10*6/uL Hgb (14.0-18.0) g/dl Hct (42-52) % MCV (80-98) fL MCH (27.0-33.0) pg MCHC (31.0-36.0) g/dl RDW (11.0-16.0) % Plt Count (160-400) X10*3/uL MPV (9.4-12.4) fL Immature Gran % (Auto) (0.0-0.4) % Neut % (Auto) (45-73) % Lymph % (Auto) (20-40) % [place] % (Auto) (2-11) % Eos % (Auto) (0-4) % Baso % (Auto) (0-2) % Lymph # (Auto) (1.2-4.9) X10*3/uL [place] # (Auto) (0.1-1.2) X10*3/uL Eos # (Auto) (0.0-0.4) X10*3/uL Baso # (Auto) (0.0-0.2) X10*3/uL Abs Immat Gran (auto) (0.00-0.03) X10*3/uL Absolute Neuts (auto) (2.0-8.3) X10*3/uL Absolute Nucleated RBC (0.0-0.012) X10*3/uL Nucleated RBC % (auto) (0.0-0.2) /100WBC VBG pH 7.37 (7.32-7.43) VBG pCO2 52 mmHg VBG pO2 36 mmHg VBG HCO3 31 H (22-26) mmol/L VBG O2 Saturation 51.0 % VBG Base Excess 4.8 mmol/L Sodium (135-145) mmol/L Potassium (3.3-5.1) mmol/L Chloride (96-108) mmol/L Carbon Dioxide (22-29) mmol/L Anion Gap (12-20) BUN (9-16) mg/dL Creatinine (0.5-1.4) mg/dL Estim Creat Clear Calc Estimated GFR POC Glucose 222 H (60-115) mg/dL Random Glucose (60-115) mg/dL Lactic Acid (0.5-2.0) mmol/L Calcium (8.4-10.2) mg/dL Total Bilirubin (0.0-1.0) mg/dL AST (5-37) U/L ALT (0-40) U/L Alkaline Phosphatase (39-117) U/L Troponin I High Sens (<3.5-35.0) ng/L B-Natriuretic Peptide (<100) pg/mL Total Protein (6.5-8.0) g/dL Albumin (3.5-5.0) g/dL Urine Color Urine Appearance Urine pH (5.0-8.0) Ur Specific [place] (1.005-1.025) Urine Protein (NEG-TRACE) MG/DL Urine Glucose (UA) (NEG) MG/DL Urine Ketones (NEG) MG/DL Urine Blood (NEG) Urine Nitrite (NEG) Ur Leukocyte Esterase (NEG) Urine RBC (0) /HPF Urine WBC (0-4) /HPF Ur Squamous Epith Cells /LPF Urine Bacteria /LPF Acetone, Qual (Negative) COVID-19 ([facility]) (Negative) COVID-19 Clin Com Discharge Plan Discharge Clinical Impression: CHF exacerbation, Tracheomalacia, CA (acute kidney injury) Patient Disposition: Admitted As Inpatient
[2020-12-05 02:21] LABS: Basophils Percent Auto 0.1 % (0-2); Eosinophils Absolute Auto 0.3 X10*3/uL (0.0-0.4); Hematocrit 34.9 % (42-52); Hemoglobin 10.7 g/dl (14.0-18.0); Imm Gran Abs Auto 0.06 X10*3/uL (0.00-0.03); Imm Gran Pct Auto 0.4 % (0.0-0.4); Lymphocytes Absolute Auto 1.6 X10*3/uL (1.2-4.9); Lymphocytes Percent Auto 11.3 % (20-40); MANUAL DIFF FLAG NO; Mean Corpuscular HGB Conc 30.7 g/dl (31.0-36.0); Mean Corpuscular Hemoglobin 25.2 pg (27.0-33.0); Mean Corpuscular Volume 82.3 fL (80-98); Mean Platelet Volume 12.6 fL (9.4-12.4); Monocytes Absolute Auto 0.9 X10*3/uL (0.1-1.2); Monocytes Percent Auto 6.4 % (2-11); Neutrophils Absolute Auto 11.1 X10*3/uL (2.0-8.3); Neutrophils Percent Auto 79.8 % (45-73); Platelet Count 190 X10*3/uL (160-400); Red Blood Count 4.24 X10*6/uL (4.60-5.80); Red Cell Distribution Width 14.1 % (11.0-16.0)
[2020-12-05 02:35] LABS: COVID-19 Test Negative (Negative)
[2020-12-05] MEDS: Furosemide 100 MG/10 ML VIAL 80 MG IVPUSH (02:41)
[2020-12-05 02:43] LABS: Lactic Acid 0.9 mmol/L (0.5-2.0)
--- NOTE | 2020-12-05 02:48 | PC.NURSE ---
Pt a&O, no chest pain at this time. pt placed on monitor at the bedside. Heart in the 90's. Pt has expiratory wheezes, provider aware. Medicated per May.
[2020-12-05 02:51] LABS: B Type Natriuretic Peptide 71 pg/mL (<100)
[2020-12-05 02:55] LABS: Alanine Aminotransferase 18 U/L (0-40); Alkaline Phosphatase 63 U/L (39-117); Anion Gap 13 (12-20); Aspartate Amino Transferase 23 U/L (5-37); Bilirubin Total 0.5 mg/dL (0.0-1.0); Blood Urea Nitrogen 55 mg/dL (9-16); Calcium 9.2 mg/dL (8.4-10.2); Carbon Dioxide 30 mmol/L (22-29); Chloride 101 mmol/L (96-108); Creatinine Clr Calc Pharmacy 25.2; Estimated Glomerular Filt Rate 24; Glucose Random 463 mg/dL (60-115); Potassium 5.1 mmol/L (3.3-5.1); Sodium 139 mmol/L (135-145); Total Protein 7.1 g/dL (6.5-8.0)
--- NOTE | 2020-12-05 03:57 | PC.NURSE ---
multiple attempts to place hardin, unsuccessful. Provider is aware.
[2020-12-05 04:27] LABS: Appearance Urine CLEAR; Color Urine YELLOW; Glucose Urine UA 500 MG/DL (NEG); Leukocyte Esterase Urine NEG (NEG); Nitrite Urine NEG (NEG); UACC Culture Trigger NO; Urine Blood 2+ (NEG); Urine Ketones NEG (NEG); Urine Protein NEG (NEG-TRACE)
[2020-12-05 04:33] LABS: Squamous Epithelial Cell Urine TRACE /LPF; WBC Urine 0-2 /HPF (0-4)
--- NOTE | 2020-12-05 04:34 | PC.NURSE ---
AMY AGUILAR ASKED FOR A BLADDER SCAN. 382 ML WAS SHOWN ON THE BLADDER SCAN.
[2020-12-05 05:02] LABS: Acetone, serum QL Negative (Negative)
[2020-12-05] MEDS: Insulin Lispro 100 UNIT/ML 3 ML VIAL 8 UNIT SUBCUT (05:28)
[2020-12-05] MEDS: cefTRIAXone sodium 1 GM in 0.9 % Sodium Chloride 50 ML IV (05:29)
[2020-12-05] MEDS: Lidocaine HCl 2 % Urojet 10 ML JEL.PF.APP TOPICAL (05:30)
--- NOTE | 2020-12-05 05:44 | PC.NURSE ---
MEDICATED PER MAR
[2020-12-05 06:27] LABS: Venous Blood Gas Refer to POC result
[2020-12-05 06:29] LABS: VBG Base Excess 4.8 mmol/L; VBG HCO3 31 mmol/L (22-26); VBG pCO2 52 mmHg; VBG pH 7.37 (7.32-7.43); VBG pO2 36 mmHg
[2020-12-05 06:43] LABS: Glucose, Whole Blood 222 mg/dL (60-115)
--- NOTE | 2020-12-05 07:04 | PC.NURSE ---
Pt incontinent of urine. Provider aware that we are unable to place a hardin at this time. Pt had a complete bed change and bg care. Call machado at the bedside.
[2020-12-05 07:12] LABS: Troponin-I High Sensitivity 21.9 ng/L (<3.5-35.0)
--- NOTE | 2020-12-05 07:16 | PC.NURSE ---
PT IS AWAKE AT THIS TIME ASKING FOR WATER, SPOKE WITH PROVIDER AND STATED WE COULD GIVE HIM FLUIDS AT THIS TIME. ABX JUST FINISHED. PT NEEDS BEING MET. PLAN FOR ADMISSION
--- NOTE | 2020-12-05 08:24 | PHA.MEDREC ---
Pharmacy Consult ? Medication Reconciliation Pharmacy has completed the medication reconciliation. Patient's list on file did not include all OTC medications and the patient couldn't confirm with me what he was taking. Ginny Hancock, PharmD [phone]
--- NOTE | 2020-12-05 09:28 | PM.IMHP ---
History of Present Illness Date of Service: 12/05/20 Chief Complaint: Shortness of breath This is a 70-year-old male with a past medical history of ischemic cardiomyopathy with last echo (Jan 2020) showing ejection fraction of 35-40%, diabetes mellitus, memory loss (per daughter), CKD stage 3/4, hypertension, CAD status post CABG who is primarily Frisian speaking. History is obtained with the help of ED provider who also speaks Frisian as well as the patients daughter. Per the daughter, yesterday evening her father had sudden onset of trouble breathing and sweating. It is unclear if he had chest pain at that time, however the family asked the patient if he wanted to go to the emergency room and so he was brought to the ED. prior to this during the day the daughter reports that her father was at his baseline self. Specifically, she denies any abdominal symptoms such as nausea or vomiting. She does endorse that her father is chronically constipated. She is unaware if he has had any urinary retention although she does report that he does have difficulty with urination and had a prostate procedure done in 2018. There are no reports of any fevers or chills. There are no reports of any known sick contacts. Upon arrival to the emergency room, the patient was noted to have some wheezing and visible respiratory distress. His workup was felt by the ED provider to suggest acute heart failure exacerbation and so he was given IV diuretics. Patient also was noted to have urinary retention and required a Hardin catheter placement by Urology due to difficulty. When I saw the patient in the emergency room, he was somewhat confused (this was later confirmed by the daughter that he does have a history of memory loss). After speaking with him in his [place] language and with the help of the ED provider he was able to tell me that he had belly pain and trouble breathing which have improved after the placement of the Hardin catheter. Review of Systems Review of Systems: General - no fevers or chills Cardiovascular - no chest pain Respiratory - +SOB Abdominal- +abdominal pain, no nausea or vomiting, pain resolving after hardin placement Yes all other systems are reviewed and are negative [facility]LY [facility] Medical History Acute kidney injury superimposed on CKD CAD (coronary artery disease) Chronic kidney disease (CKD) Chronic kidney failure Congestive heart failure Diabetes mellitus Heart failure with reduced ejection fraction Hypertension Ischemic cardiomyopathy Pertinent family history: Unable to determine, patient does not know Surgical History Hx of CABG Social History Household Members: None Housing: House Do you presently have visiting nurse or other home services: No Alcohol intake: never Patient Tobacco Use Status: Never used Tobacco Use of substances other than those prescribed or required for medical reasons: No Advance Directives: No Advance Directives Information Provided: No service: No Current occupational status: retired [employer] Allergies Allergy/AdvReac Type Severity Reaction Status Date / Time No Known Allergies Allergy Verified 06/06/20 14:39 [No Known Allergies*] Active Medications: Current Medications Generic Name Dose Route Start Last Admin Trade Name Freq PRN Reason Stop Dose Admin Acetaminophen 650 mg 12/05/20 09:22 Acetaminophen 325 Mg Tablet PO Q6H PRN Pain, Mild (Pain Scale 1-3) Heparin Sodium (Porcine) 5,000 unit 12/05/20 09:30 Heparin Sodium,Porcine 5,000 Unit/Ml Vial SUBCUT Q12H [facility] Pharmacy Consult 1 each 12/05/20 07:18 Consult Rx Perform Med Rec MISCELLANE ONCE PRN Consult order Sodium Chloride 3 ml 12/05/20 16:00 0.9 % Sodium Chloride Flush 3 Ml Syringe IVFLUSH QSHIFT [facility] Home Medications Medication Instructions Recorded Confirmed Last Taken Type lancets 28 gauge (FreeStyle 02/13/20 09/06/20 Unknown History Lancets) pen needle, diabetic 32 gauge x 02/13/20 09/06/20 Unknown History (BD Ultra-Fine Tamera Pen Needle) atorvastatin 40 mg tablet 40 mg PO DAILY 06/06/20 12/05/20 11/08/20 History cholecalciferol (vitamin D3) 25 25 mcg PO DAILY 06/06/20 12/05/20 11/08/20 History mcg (1,000 unit) capsule omeprazole 20 mg capsule,delayed 20 mg PO DAILY 06/06/20 12/05/20 11/08/20 History release melatonin 5 mg capsule 5 mg PO BEDTIME cap 07/18/20 12/05/20 11/08/20 History bumetanide 2 mg tablet 2 mg PO BID 08/12/05/20 11/08/20 History lisinopril 40 mg tablet 40 mg PO DAILY 11/08/20 12/05/20 11/08/20 History [id number] 0.4 mg-calcium 162 1 tab PO DAILY 11/08/20 12/05/20 11/08/20 History mg-iron 18 fe-papzitz-lttalu tablet sitagliptin 50 mg tablet (Januvia) 50 mg PO DAILY 11/08/20 12/05/20 11/08/20 History insulin glargine 100 unit/mL (3 30 unit SUBCUT BEDTIME 12/05/20 12/05/20 Unknown History mL) subcutaneous pen (Lantus Solostar U-100 Insulin) insulin lispro 100 unit/mL 5 - 7 unit SUBCUT DAILY 12/05/20 12/05/20 Unknown History subcutaneous pen levothyroxine 50 mcg tablet 1 tab PO DAILY 12/05/20 12/05/20 Unknown History Physical Exam Vital Signs and Narrative: Vital Signs: Last Vital Signs Temp 98.0 F 12/05/20 01:31 Pulse 96 12/05/20 07:08 Resp 18 12/05/20 07:08 BP 131/66 12/05/20 07:08 Pulse Ox 97 12/05/20 07:08 Body Mass Index 29.6 Const: Other: Constitutional - Awake and Alert, No apparent distress Eyes - PERRLA, EOMI Cardiovascular - S1S2, RRR, No edema Respiratory - No respiratory distress Gastrointestinal - distended but no rebound or guarding - No CVA tenderness Extremities - no calf tenderness bilaterally, no swelling Musculoskeletal - Normal inspection, normal ROM Skin - Warm/Dry Neurological - Oriented to self; no focal deficits Psychological - Appropriate affect Results Labs CBC and Chem 7: 12/05/20 02:15 12/05/20 02:15 Labs: Laboratory Results - last 24 hr 12/05/20 12/05/20 12/05/20 02:15 02:15 02:15 MCV 82.3 MCH 25.2 L MCHC 30.7 L RDW 14.1 Plt Count 190 MPV 12.6 H Immature Gran % (Auto) 0.4 Neut % (Auto) 79.8 H Lymph % (Auto) 11.3 L [place] % (Auto) 6.4 Eos % (Auto) 2.0 Baso % (Auto) 0.1 Lymph # (Auto) 1.6 [place] # (Auto) 0.9 Eos # (Auto) 0.3 Baso # (Auto) 0.0 Abs Immat Gran (auto) 0.06 H Absolute Neuts (auto) 11.1 H Absolute Nucleated RBC 0.000 Nucleated RBC % (auto) 0.0 VBG pH VBG pCO2 VBG pO2 VBG HCO3 VBG O2 Saturation VBG Base Excess Anion Gap 13 Estim Creat Clear Calc 25.2 Estimated GFR 24 POC Glucose Random Glucose 463 H* Lactic Acid Calcium 9.2 Total Bilirubin 0.5 AST 23 ALT 18 Alkaline Phosphatase 63 Troponin I High Sens 14.0 B-Natriuretic Peptide 71 Total Protein 7.1 Albumin 4.0 Urine Color Urine Appearance Urine pH Ur Specific [place] Urine Protein Urine Glucose (UA) Urine Ketones Urine Blood Urine Nitrite Ur Leukocyte Esterase Urine RBC Urine WBC Ur Squamous Epith Cells Urine Bacteria Acetone, Qual Negative COVID-19 ([facility]) COVID-[employer] 12/05/20 12/05/20 12/05/20 02:15 02:23 04:18 MCV MCH MCHC RDW Plt Count MPV Immature Gran % (Auto) Neut % (Auto) Lymph % (Auto) [place] % (Auto) Eos % (Auto) Baso % (Auto) Lymph # (Auto) [place] # (Auto) Eos # (Auto) Baso # (Auto) Abs Immat Gran (auto) Absolute Neuts (auto) Absolute Nucleated RBC Nucleated RBC % (auto) VBG pH VBG pCO2 VBG pO2 VBG HCO3 VBG O2 Saturation VBG Base Excess Anion Gap Estim Creat Clear Calc Estimated GFR POC Glucose Random Glucose Lactic Acid 0.9 Calcium Total Bilirubin AST ALT Alkaline Phosphatase Troponin I High Sens B-Natriuretic Peptide Total Protein Albumin Urine Color YELLOW Urine Appearance CLEAR Urine pH 6.0 Ur Specific [place] 1.010 Urine Protein NEG Urine Glucose (UA) 500 H Urine Ketones NEG Urine Blood 2+ H Urine Nitrite NEG Ur Leukocyte Esterase NEG Urine RBC 10-14 H Urine WBC 0-2 Ur Squamous Epith Cells TRACE Urine Bacteria NONE Acetone, Qual COVID-19 ([facility]) Negative COVID-[employer] See Note 12/05/20 12/05/20 12/05/20 06:23 06:32 06:39 MCV MCH MCHC RDW Plt Count MPV Immature Gran % (Auto) Neut % (Auto) Lymph % (Auto) [place] % (Auto) Eos % (Auto) Baso % (Auto) Lymph # (Auto) [place] # (Auto) Eos # (Auto) Baso # (Auto) Abs Immat Gran (auto) Absolute Neuts (auto) Absolute Nucleated RBC Nucleated RBC % (auto) VBG pH 7.37 VBG pCO2 52 VBG pO2 36 VBG HCO3 31 H VBG O2 Saturation 51.0 VBG Base Excess 4.8 Anion Gap Estim Creat Clear Calc Estimated GFR POC Glucose 222 H Random Glucose Lactic Acid Calcium Total Bilirubin AST ALT Alkaline Phosphatase Troponin I High Sens 21.9 D B-Natriuretic Peptide Total Protein Albumin Urine Color Urine Appearance Urine pH Ur Specific [place] Urine Protein Urine Glucose (UA) Urine Ketones Urine Blood Urine Nitrite Ur Leukocyte Esterase Urine RBC Urine WBC Ur Squamous Epith Cells Urine Bacteria Acetone, Qual COVID-19 ([facility]) COVID-19 Clin Com Imaging Radiologist's Impressions: Impressions Chest X-Ray 12/05/20 01:42 IMPRESSION: Redemonstrated right hemidiaphragm elevation without additional acute findings. Abdomen/Pelvis CT 12/05/20 04:52 IMPRESSION: 1. No acute findings identified in the chest/abdomen/pelvis. 2. Tracheomalacia. 3. Bibasilar atelectasis, greatest in the right middle lobe adjacent to the elevated hemidiaphragm. Chest CT 12/05/20 04:52 IMPRESSION: 1. No acute findings identified in the chest/abdomen/pelvis. 2. Tracheomalacia. 3. Bibasilar atelectasis, greatest in the right middle lobe adjacent to the elevated hemidiaphragm. Assessment and Plan (1) Urinary retention: Status: Acute This is a 70 yo M with multiple medical issues including HFrEF, CAD - s/p CABG, DM, CKD3/4, HTN, Memory loss, history of prostate procedure who presents to the hospital with sudden onset shortness of breath and wheezing with associated sweating. He was noted to have constipation and urinary retention while in the ED. There was also concern over chest pain and possible CHF exacerbation. He will be observed over night. 1. Acute Shortness of breath, possible CP appears to be related to urinary retention as it has improved dramatically after Hardin placement His HS trop-I is in the normal range, but the delta is >50% --> will check a third Trop now Do not feel his presentation is consistent with acute exacerbation of his CHF, however, will ask cardiology for input 2. Urinary retention Hardin placed by urology -- d/w Dr. Barlow --> needs to d/c with catheter in place and f/u with him in the office in a few weeks start flomax 3. DM Lantus + sliding scale diabetic diet 4. HFrEF doesn't appear overloaded -- bnp wnl, chest imaging without any edema, clinical doesnt appear fluid overloaded cardiology consult as above continue baseline diuretics 5. CAD - s/p CABG continue baseline meds not on asa -- unclear why 6. CKD3/4 monitor chronic, not due to infection 7. Constipation start Miralax daily Patient does not have sepsis/severe sepsis nor concern for any infection at this time. DVT pptx, Lovenox Quality Stroke Does the patient have a stroke diagnosis?: No VTE Prior VTE?: No VTE Risk Level:: Medical - moderate - high VTE Device Contraindication: N/A - Device Ordered VTE Drug Contraindication: N/A - Med Ordered
[2020-12-05 10:41] LABS: Troponin-I High Sensitivity 25.4 ng/L (<3.5-35.0)
[2020-12-05 13:28] LABS: Glucose, Whole Blood 103 mg/dL (60-115)
[2020-12-05] MEDS: Heparin Sodium,Porcine 5,000 UNIT/ML VIAL 5000 UNIT SUBCUT ×2 (13:31→21:33)
[2020-12-05] MEDS: polyethylene glycoL 3350 17 GM POWD.PACK PO (13:32)
--- NOTE | 2020-12-05 13:32 | PM.CNCAR ---
History of Present Illness History of Present Illness Date of Service: 12/05/20 Requesting physician: Jose Franco Chief complaint: CHEST PAIN Narrative: Pleasant 70-year-old gentleman from by his son who is here for sudden-onset shortness of breath and sweating. He has background history of ischemic cardiomyopathy with ejection fraction of 35-40%. Previous VA and regional wall motion abnormalities on echocardiography, diabetes, memory loss, CKD stage 3 to 4, hypertension and coronary artery bypass surgery. He is saying that he was feeling shortness of breath for 3 days and then suddenly his breathing worsened when he was sweaty and came to the emergency department. In the ED was not doing an read urinary retention and was also noticed to have abdominal distension which led to CT scan showing constipation. He is denying any abdominal discomfort. His main complaint is shortness of breath which he is saying is stable right now. Review of Systems Review of Systems: Yes all other systems are reviewed and are negative PMFSH Past Medical History Medical History Acute kidney injury superimposed on CKD CAD (coronary artery disease) Chronic kidney disease (CKD) Chronic kidney failure Congestive heart failure Diabetes mellitus Heart failure with reduced ejection fraction Hypertension Ischemic cardiomyopathy Surgical History Surgical History Hx of CABG Social History Social History Household Members: Unknown / Unable to assess Housing: Unknown / Unable to assess Do you presently have visiting nurse or other home services: No Alcohol intake: never Patient Tobacco Use Status: Never used Tobacco Second Hand Smoke Exposure: No service: No Current occupational status: retired [employer] Allergies Allergy/AdvReac Type Severity Reaction Status Date / Time No Known Allergies Allergy Verified 06/06/20 14:39 [No Known Allergies*] Active Medications: Current Medications Generic Name Dose Route Start Last Admin Trade Name Freq PRN Reason Stop Dose Admin Acetaminophen 650 mg 12/05/20 09:22 Acetaminophen 325 Mg Tablet PO Q6H PRN Pain, Mild (Pain Scale 1-3) Atorvastatin Calcium 40 mg 12/06/20 09:00 Atorvastatin Calcium 40 Mg Tablet PO DAILY [facility] Bumetanide 2 mg 12/05/20 21:00 Bumetanide 1 Mg Tablet PO BID [facility] Protocol Carvedilol 25 mg 12/05/20 21:00 Carvedilol 25 Mg Tablet PO BID [facility] Protocol Heparin Sodium (Porcine) 5,000 unit 12/05/20 09:30 12/05/20 13:31 Heparin Sodium,Porcine 5,000 Unit/Ml Vial SUBCUT 5,000 unit Q12H [facility] Administration Hydralazine HCl 25 mg 12/05/20 21:00 Hydralazine Hcl 25 Mg Tablet PO BID [facility] Protocol Insulin Glargine 30 unit 12/05/20 21:00 Insulin Glargine,Hum.Rec.Anlog 100 Unit/Ml 10 Ml Vial SUBCUT BEDTIME [facility] Insulin Human Lispro 0 unit 12/05/20 11:30 12/05/20 13:32 Insulin Lispro 100 Unit/Ml 3 Ml Vial SUBCUT Not Given QIDACHS [facility] Protocol Levothyroxine Sodium 50 mcg 12/06/20 06:00 Levothyroxine Sodium 50 Mcg Tablet PO DAILY@0600 [facility] Melatonin 6 mg 12/05/20 21:00 Melatonin 3 Mg Tablet PO BEDTIME [facility] Pharmacy Consult 1 each 12/05/20 07:18 Consult Rx Perform Med Rec MISCELLANE ONCE PRN Consult order Polyethylene Glycol 17 gm 12/05/20 09:45 12/05/20 13:32 Polyethylene Glycol 3350 17 Gm Powd.Pack PO 17 gm DAILY [facility] Administration Sodium Chloride 3 ml 12/05/20 16:00 0.9 % Sodium Chloride Flush 3 Ml Syringe IVFLUSH QSHIFT [facility] Tamsulosin HCl 0.4 mg 12/05/20 21:00 Tamsulosin Hcl 0.4 Mg Capsule PO BEDTIME [facility] Vitamin D 25 mcg 12/06/20 09:00 Cholecalciferol (Vitamin D3) 25 Mcg Tablet PO DAILY [facility] Home Medications Medication Instructions Recorded Confirmed Last Taken Type lancets 28 gauge (FreeStyle 02/13/20 09/06/20 Unknown History Lancets) pen needle, diabetic 32 gauge x 02/13/20 09/06/20 Unknown History (BD Ultra-Fine Tamera Pen Needle) atorvastatin 40 mg tablet 40 mg PO DAILY 06/06/20 12/05/20 11/08/20 History cholecalciferol (vitamin D3) 25 25 mcg PO DAILY 06/06/20 12/05/20 11/08/20 History mcg (1,000 unit) capsule omeprazole 20 mg capsule,delayed 20 mg PO DAILY 06/06/20 12/05/20 11/08/20 History release melatonin 5 mg capsule 5 mg PO BEDTIME cap 07/18/20 12/05/20 11/08/20 History bumetanide 2 mg tablet 2 mg PO BID 11/08/20 12/05/20 11/08/20 History lisinopril 40 mg tablet 40 mg PO DAILY 11/08/20 12/05/20 11/08/20 History ujokmwyo-iyr-GJ 0.4 mg-calcium 162 1 tab PO DAILY 11/08/20 12/05/20 11/08/20 History mg-iron 18 oc-wjpynet-tbwqsy tablet sitagliptin 50 mg tablet (Januvia) 50 mg PO DAILY 11/08/20 12/05/20 11/08/20 History insulin glargine 100 unit/mL (3 30 unit SUBCUT BEDTIME 12/05/20 12/05/20 Unknown History mL) subcutaneous pen (Lantus Solostar U-100 Insulin) insulin lispro 100 unit/mL 5 - 7 unit SUBCUT DAILY 12/05/20 12/05/20 Unknown History subcutaneous pen levothyroxine 50 mcg tablet 1 tab PO DAILY 12/05/20 12/05/20 Unknown History Physical Exam Vital Signs: Vital Signs: Last Vital Signs Temp 98.4 F 12/05/20 09:24 Pulse 84 12/05/20 09:24 Resp 20 12/05/20 09:24 BP 97/49 L 12/05/20 09:24 Pulse Ox 100 12/05/20 09:24 Body Mass Index 29.6 GENERAL APPEARANCE: in no acute distress, pleasant. NECK: no carotid bruit, mild jugular venous distention. SKIN: no suspicious lesions, warm and dry. HEART: no murmurs, regular rate and rhythm. LUNGS: next a tree wheezes. ABDOMEN: distended, tense, nontender. EXTREMITIES: no edema. PERIPHERAL PULSES: equal. NEUROLOGIC: No gross deficits, AAO X 3 Results Labs and Meds Result diagrams: 12/05/20 02:15 12/05/20 02:15 Lab results: Laboratory Results - last 24 hr 12/05/20 12/05/20 12/05/20 02:15 02:15 02:15 WBC 14.0 H RBC 4.24 L Hgb 10.7 L Hct 34.9 L MCV 82.3 MCH 25.2 L MCHC 30.7 L RDW 14.1 Plt Count 190 MPV 12.6 H Immature Gran % (Auto) 0.4 Neut % (Auto) 79.8 H Lymph % (Auto) 11.3 L [place] % (Auto) 6.4 Eos % (Auto) 2.0 Baso % (Auto) 0.1 Lymph # (Auto) 1.6 [place] # (Auto) 0.9 Eos # (Auto) 0.3 Baso # (Auto) 0.0 Abs Immat Gran (auto) 0.06 H Absolute Neuts (auto) 11.1 H Absolute Nucleated RBC 0.000 Nucleated RBC % (auto) 0.0 VBG pH VBG pCO2 VBG pO2 VBG HCO3 VBG O2 Saturation VBG Base Excess Sodium 139 Potassium 5.1 D Chloride 101 Carbon Dioxide 30 H Anion Gap 13 BUN 55 H Creatinine 2.59 H Estim Creat Clear Calc 25.2 Estimated GFR 24 POC Glucose Random Glucose 463 H* Lactic Acid Calcium 9.2 Total Bilirubin 0.5 AST 23 ALT 18 Alkaline Phosphatase 63 Troponin I High Sens 14.0 B-Natriuretic Peptide 71 Total Protein 7.1 Albumin 4.0 Urine Color Urine Appearance Urine pH Ur Specific [place] Urine Protein Urine Glucose (UA) Urine Ketones Urine Blood Urine Nitrite Ur Leukocyte Esterase Urine RBC Urine WBC Ur Squamous Epith Cells Urine Bacteria Acetone, Qual Negative COVID-19 ([facility]) COVID-19 Clin Com 12/05/20 12/05/20 12/05/20 02:15 02:23 04:18 WBC RBC Hgb Hct MCV MCH MCHC RDW Plt Count MPV Immature Gran % (Auto) Neut % (Auto) Lymph % (Auto) [place] % (Auto) Eos % (Auto) Baso % (Auto) Lymph # (Auto) [place] # (Auto) Eos # (Auto) Baso # (Auto) Abs Immat Gran (auto) Absolute Neuts (auto) Absolute Nucleated RBC Nucleated RBC % (auto) VBG pH VBG pCO2 VBG pO2 VBG HCO3 VBG O2 Saturation VBG Base Excess Sodium Potassium Chloride Carbon Dioxide Anion Gap BUN Creatinine Estim Creat Clear Calc Estimated GFR POC Glucose Random Glucose Lactic Acid 0.9 Calcium Total Bilirubin AST ALT Alkaline Phosphatase Troponin I High Sens B-Natriuretic Peptide Total Protein Albumin Urine Color YELLOW Urine Appearance CLEAR Urine pH 6.0 Ur Specific [place] 1.010 Urine Protein NEG Urine Glucose (UA) 500 H Urine Ketones NEG Urine Blood 2+ H Urine Nitrite NEG Ur Leukocyte Esterase NEG Urine RBC 10-14 H Urine WBC 0-2 Ur Squamous Epith Cells TRACE Urine Bacteria NONE Acetone, Qual COVID-19 ([facility]) Negative COVID-19 Clin Com See Note 12/05/20 12/05/20 12/05/20 06:23 06:32 06:39 WBC RBC Hgb Hct MCV MCH MCHC RDW Plt Count MPV Immature Gran % (Auto) Neut % (Auto) Lymph % (Auto) [place] % (Auto) Eos % (Auto) Baso % (Auto) Lymph # (Auto) [place] # (Auto) Eos # (Auto) Baso # (Auto) Abs Immat Gran (auto) Absolute Neuts (auto) Absolute Nucleated RBC Nucleated RBC % (auto) VBG pH 7.37 VBG pCO2 52 VBG pO2 36 VBG HCO3 31 H VBG O2 Saturation 51.0 VBG Base Excess 4.8 Sodium Potassium Chloride Carbon Dioxide Anion Gap BUN Creatinine Estim Creat Clear Calc Estimated GFR POC Glucose 222 H Random Glucose Lactic Acid Calcium Total Bilirubin AST ALT Alkaline Phosphatase Troponin I High Sens 21.9 D B-Natriuretic Peptide Total Protein Albumin Urine Color Urine Appearance Urine pH Ur Specific [place] Urine Protein Urine Glucose (UA) Urine Ketones Urine Blood Urine Nitrite Ur Leukocyte Esterase Urine RBC Urine WBC Ur Squamous Epith Cells Urine Bacteria Acetone, Qual COVID-19 ([facility]) COVID-19 Clin Com 12/05/20 12/05/20 10:07 13:23 WBC RBC Hgb Hct MCV MCH MCHC RDW Plt Count MPV Immature Gran % (Auto) Neut % (Auto) Lymph % (Auto) [place] % (Auto) Eos % (Auto) Baso % (Auto) Lymph # (Auto) [place] # (Auto) Eos # (Auto) Baso # (Auto) Abs Immat Gran (auto) Absolute Neuts (auto) Absolute Nucleated RBC Nucleated RBC % (auto) VBG pH VBG pCO2 VBG pO2 VBG HCO3 VBG O2 Saturation VBG Base Excess Sodium Potassium Chloride Carbon Dioxide Anion Gap BUN Creatinine Estim Creat Clear Calc Estimated GFR POC Glucose 103 Random Glucose Lactic Acid Calcium Total Bilirubin AST ALT Alkaline Phosphatase Troponin I High Sens 25.4 B-Natriuretic Peptide Total Protein Albumin Urine Color Urine Appearance Urine pH Ur Specific [place] Urine Protein Urine Glucose (UA) Urine Ketones Urine Blood Urine Nitrite Ur Leukocyte Esterase Urine RBC Urine WBC Ur Squamous Epith Cells Urine Bacteria Acetone, Qual COVID-19 ([facility]) COVID-19 Clin Com Imaging Radiologist's impression: Impressions Chest X-Ray 12/05/20 01:42 IMPRESSION: Redemonstrated right hemidiaphragm elevation without additional acute findings. Abdomen/Pelvis CT 12/05/20 04:52 IMPRESSION: 1. No acute findings identified in the chest/abdomen/pelvis. 2. Tracheomalacia. 3. Bibasilar atelectasis, greatest in the right middle lobe adjacent to the elevated hemidiaphragm. Chest CT 12/05/20 04:52 IMPRESSION: 1. No acute findings identified in the chest/abdomen/pelvis. 2. Tracheomalacia. 3. Bibasilar atelectasis, greatest in the right middle lobe adjacent to the elevated hemidiaphragm. Assessment and Plan (1) Urinary retention: Status: Acute (2) CHF exacerbation: Status: Acute (3) Ischemic cardiomyopathy: Status: Acute 70 year gentleman with background history of ischemic cardiomyopathy and congestive heart failure who is presenting with sudden onset shortness of breath and sweating he was noticed to be in urinary retention. He has been ruled out and is high sensitivity troponin levels are normal. Clinically he is mildly volume overloaded. Hard to know if urinary retention was main issue and if this is why he became sweaty. clinically looks mildly volume overloaded. I think we diurese him today and reassess in tomorrow. No concern for acute coronary syndrome. Thank you for allowing me to participate in the care of your patient. Please feel free to contact me if you have any questions. Procedures Date of Service Date of Service: 12/05/20
--- NOTE | 2020-12-05 15:59 | MHC.CM.PN ---
Attempted to meet with patient in regards to discharge planning. Patient's O2 sat 88%. Kevin REYES aware. Spoke with patient's daughter, Evelio via telephone at [phone]. Patient lives with his and Evelio, ambulates with a walker and assist of family and had no services prior to coming to the hospital. PCP verified. Copy of HCP obtained from PCP's office. Patient received 2 Pfizer vaccines in July at the [facility]. Obs notice explained and left bedside. Patient's daughter will transport patient home when medically stable. Continue to monitor for d/c needs.
[2020-12-05 16:35] LABS: Glucose, Whole Blood 282 mg/dL (60-115)
[2020-12-05] MEDS: 0.9 % Sodium Chloride Flush 3 ML SYRINGE IVFLUSH (16:50)
[2020-12-05] MEDS: Insulin Lispro 100 UNIT/ML 3 ML VIAL SUBCUT ×2 (16:50→21:34)
[2020-12-05] MEDS: Bumetanide 1 MG/4 ML VIAL IVPUSH (17:42)
--- NOTE | 2020-12-05 18:08 | PC.NURSE ---
Pt presents to the unit from the ED with c/o chest pain. He is alert/confused, rr even, speaks in full sentences, skin is pwdi, and he is in nad. Burnett catheter in place draining clear yellow urine. Currently resting quietly. Will continue to monitor.
[2020-12-05] MEDS: Melatonin 3 MG TABLET 6 MG PO (21:33)
[2020-12-05 21:34] LABS: Glucose, Whole Blood 237 mg/dL (60-115)
[2020-12-05] MEDS: Tamsulosin HCL 0.4 MG CAPSULE PO (21:34)
[2020-12-05] MEDS: Insulin Glargine,Hum.rec.anlog 100 UNIT/ML 10 ML VIAL 30 UNIT SUBCUT (21:34)
--- NOTE | 2020-12-06 03:39 | PC.NURSE ---
Received call from ICU that patients blood pressure was low. Checked it again and it was within normal limits. The patient is asymptomatic at this time. Will continue to monitor.
[2020-12-06 04:00] VITALS: BP 89/56; PULSE 87; RESP 19; TEMP 36.9; O2SAT 98
[2020-12-06] MEDS: Levothyroxine Sodium 50 MCG TABLET PO (06:05)
[2020-12-06 07:19] LABS: Hematocrit 34.7 % (42-52); Hemoglobin 10.5 g/dl (14.0-18.0); Mean Corpuscular HGB Conc 30.3 g/dl (31.0-36.0); Mean Corpuscular Hemoglobin 24.9 pg (27.0-33.0); Mean Corpuscular Volume 82.2 fL (80-98); Mean Platelet Volume 12.6 fL (9.4-12.4); Platelet Count 177 X10*3/uL (160-400); Red Blood Count 4.22 X10*6/uL (4.60-5.80); Red Cell Distribution Width 14.3 % (11.0-16.0); White Blood Count 13.9 X10*3/uL (4.8-10.8)
[2020-12-06 07:36] LABS: Anion Gap 15 (12-20); Blood Urea Nitrogen 56 mg/dL (9-16); Calcium 9.3 mg/dL (8.4-10.2); Carbon Dioxide 32 mmol/L (22-29); Chloride 104 mmol/L (96-108); Creatinine Clr Calc Pharmacy 25.3; Estimated Glomerular Filt Rate 25; Glucose Random 116 mg/dL (60-115); Potassium 4.6 mmol/L (3.3-5.1); Sodium 146 mmol/L (135-145)
[2020-12-06 07:42] LABS: Glucose, Whole Blood 125 mg/dL (60-115)
[2020-12-06 07:43] VITALS: BP 119/65; PULSE 88; RESP 20; TEMP 36.7; O2SAT 99
[2020-12-06] MEDS: Cholecalciferol (Vitamin D3) 25 MCG TABLET PO (09:43)
[2020-12-06] MEDS: Atorvastatin Calcium 40 MG TABLET PO (09:43)
[2020-12-06] MEDS: Heparin Sodium,Porcine 5,000 UNIT/ML VIAL 5000 UNIT SUBCUT ×2 (09:43→21:23)
[2020-12-06] MEDS: polyethylene glycoL 3350 17 GM POWD.PACK PO (09:44)
[2020-12-06 11:22] VITALS: BP 107/70; PULSE 88; RESP 15; TEMP 36.9; O2SAT 98
[2020-12-06 11:24] LABS: Glucose, Whole Blood 136 mg/dL (60-115)
--- NOTE | 2020-12-06 12:32 | PM.IMPN ---
Progress Note: A&P (1) Urinary retention: Status: Acute (2) Hypotension: Status: Acute (3) Chronic kidney failure: Status: Acute Assessment and Plan: This is a 70 yo M with multiple medical issues including HFrEF, CAD - s/p CABG, DM, CKD3/4, HTN, Memory loss, history of prostate procedure who presents to the hospital with sudden onset shortness of breath and wheezing with associated sweating. He was noted to have constipation and urinary retention while in the ED. There was also concern over chest pain and possible CHF exacerbation. He will be observed over night. Hypotension. Given 500 mL of IV fluids Hold Bumex Acute Shortness of breath, possible CP possibly related to urinary retention Troponins 21.9, 25.4 no ischemic changes on EKG Urinary retention Burnett placed by urology -- d/w Dr. Barlow --> needs to d/c with catheter in place and f/u with him in the office in a few weeks start flomax Mild hypernatremia Monitor DM Lantus + sliding scale diabetic diet HFrEF doesn't appear overloaded -- bnp wnl, chest imaging without any edema, clinical doesnt appear fluid overloaded cardiology consult as above continue baseline diuretics CAD - s/p CABG continue baseline meds not on asa -- unclear why CKD3/4 monitor chronic, not due to infection Constipation start Miralax daily DVT pptx, heparin Attending Dr. Franco Subjective Subjective Date of Service: 12/06/20 Review of Systems Follow up chest pain language barrier and patient has dementia therefore unable to give any information Physical Exam Vital Signs: Vital Signs: Last Vital Signs Temp 98.4 F 12/06/20 11:22 Pulse 88 12/06/20 11:22 Resp 15 12/06/20 11:22 BP 107/70 12/06/20 11:22 Pulse Ox 98 12/06/20 11:22 Body Mass Index 29.6 Appearing in no acute distress lung sounds are clear to auscultation heart regular rate rhythm, clear S1, S2 positive bowel sounds, abdomen is soft, nontender neuro patient is alert x3, no focal deficits Objective Data Current Medications Generic Name Dose Route Start Last Admin Trade Name Freq PRN Reason Stop Dose Admin Acetaminophen 650 mg 12/05/20 09:22 Acetaminophen 325 Mg Tablet PO Q6H PRN Pain, Mild (Pain Scale 1-3) Atorvastatin Calcium 40 mg 12/06/20 09:00 12/06/20 09:43 Atorvastatin Calcium 40 Mg Tablet PO 40 mg DAILY MARTITA Administration Bumetanide 1 mg 12/05/20 18:00 12/06/20 09:20 Bumetanide 1 Mg/4 Ml Vial IVPUSH Not Given BID@0800,1800 [facility] Protocol Heparin Sodium (Porcine) 5,000 unit 12/05/20 09:30 12/06/20 09:43 Heparin Sodium,Porcine 5,000 Unit/Ml Vial SUBCUT 5,000 unit Q12H MARTITA Administration Insulin Glargine 30 unit 12/05/20 21:00 12/05/20 21:34 Insulin Glargine,Hum.Rec.Anlog 100 Unit/Ml 10 Ml Vial SUBCUT 30 unit BEDTIME MARTITA Administration Insulin Human Lispro 0 unit 12/05/20 11:30 12/06/20 11:39 Insulin Lispro 100 Unit/Ml 3 Ml Vial SUBCUT Not Given QIDACHS [facility] Protocol Levothyroxine Sodium 50 mcg 12/06/20 06:00 12/06/20 06:05 Levothyroxine Sodium 50 Mcg Tablet PO 50 mcg DAILY@0600 [facility] Administration Melatonin 6 mg 12/05/20 21:00 12/05/20 21:33 Melatonin 3 Mg Tablet PO 6 mg BEDTIME [facility] Administration Pharmacy Consult 1 each 12/05/20 07:18 Consult Rx Perform Med Rec MISCELLANE ONCE PRN Consult order Polyethylene Glycol 17 gm 12/05/20 09:45 12/06/20 09:44 Polyethylene Glycol 3350 17 Gm Powd.Pack PO 17 gm DAILY MARTITA Administration Sodium Chloride 3 ml 12/05/20 16:00 12/06/20 09:44 0.9 % Sodium Chloride Flush 3 Ml Syringe IVFLUSH Not Given QSHIFT [facility] Tamsulosin HCl 0.4 mg 12/05/20 21:00 12/05/20 21:34 Tamsulosin Hcl 0.4 Mg Capsule PO 0.4 mg BEDTIME MARTITA Administration Vitamin D 25 mcg 12/06/20 09:00 12/06/20 09:43 Cholecalciferol (Vitamin D3) 25 Mcg Tablet PO 25 mcg DAILY MARTITA Administration Labs CBC & Chem 7: 12/06/20 06:55 12/06/20 06:55 Labs: Laboratory Results - last 24 hr 12/05/20 12/05/2012/05/21 13:23 16:32 21:31 MCV MCH MCHC RDW Plt Count MPV Absolute Nucleated RBC Nucleated RBC % (auto) Anion Gap Estim Creat Clear Calc Estimated GFR POC Glucose 103 282 H 237 H Random Glucose Calcium 12/06/20 12/06/20 12/06/20 06:55 06:55 07:39 MCV 82.2 MCH 24.9 L MCHC 30.3 L RDW 14.3 Plt Count 177 MPV 12.6 H Absolute Nucleated RBC 0.000 Nucleated RBC % (auto) 0.0 Anion Gap 15 Estim Creat Clear Calc 25.3 Estimated GFR 25 POC Glucose 125 H Random Glucose 116 H D Calcium 9.3 12/06/20 11:20 MCV MCH MCHC RDW Plt Count MPV Absolute Nucleated RBC Nucleated RBC % (auto) Anion Gap Estim Creat Clear Calc Estimated GFR POC Glucose 136 H Random Glucose Calcium Microbiology Microbiology Results: Microbiology 12/05/20 02:23 Blood - Venous Blood Culture - Preliminary No growth after 24 hours. 12/05/20 02:23 Blood - Venous Blood Culture - Preliminary No growth after 24 hours. Quality Stroke Does the patient have a stroke diagnosis?: No VTE Prior VTE?: No VTE Risk Level:: Medical - moderate - high VTE Device Contraindication: N/A - Device Ordered VTE Drug Contraindication: N/A - Med Ordered
--- NOTE | 2020-12-06 13:13 | ECG_ITS ---
Test Reason : chest tightness Blood Pressure : / mmHG Vent. Rate : 088 BPM Atrial Rate : 088 BPM P-R Int : 212 ms QRS Dur : 082 ms QT Int : 368 ms P-R-T Axes : 042 -27 120 degrees QTc Int : 445 ms Sinus rhythm with 1st degree A-V block Inferior infarct , age undetermined T-wave inversion in Lateral leads Abnormal ECG When compared with ECG of 05-DEC-2020 01:26, No significant change was found Referred By: Jessica Escalera Electronically Signed By:EMMIE EDWARDS
[2020-12-06] MEDS: 0.9 % Sodium Chloride Flush 3 ML SYRINGE IVFLUSH ×2 (15:16→21:23)
[2020-12-06 15:38] VITALS: BP 135/75; PULSE 85; RESP 21; TEMP 36.8; O2SAT 95
[2020-12-06 16:17] LABS: Glucose, Whole Blood 213 mg/dL (60-115)
[2020-12-06] MEDS: Insulin Lispro 100 UNIT/ML 3 ML VIAL SUBCUT ×2 (16:20→21:22)
[2020-12-06 19:04] VITALS: BP 91/46; PULSE 99; RESP 21; TEMP 36.6; O2SAT 90
[2020-12-06 20:32] LABS: Glucose, Whole Blood 372 mg/dL (60-115)
[2020-12-06 21:00] VITALS: O2SAT 87
[2020-12-06] MEDS: Insulin Glargine,Hum.rec.anlog 100 UNIT/ML 10 ML VIAL 30 UNIT SUBCUT (21:22)
[2020-12-06] MEDS: Tamsulosin HCL 0.4 MG CAPSULE PO (21:23)
[2020-12-06] MEDS: Melatonin 3 MG TABLET 6 MG PO (21:23)
[2020-12-07] VITALS (8 sets, daily range): BP systolic 93–148; BP diastolic 50–84; PULSE 88–112; RESP 15–21; TEMP 36.2–38.9; O2SAT 92–100
[2020-12-07] MEDS: Levothyroxine Sodium 50 MCG TABLET PO (05:32)
[2020-12-07 07:42] LABS: Glucose, Whole Blood 235 mg/dL (60-115)
[2020-12-07] MEDS: Insulin Lispro 100 UNIT/ML 3 ML VIAL SUBCUT ×6 (08:01→21:11)
[2020-12-07] MEDS: 0.9 % Sodium Chloride Flush 3 ML SYRINGE IVFLUSH ×3 (09:39→21:06)
[2020-12-07] MEDS: Heparin Sodium,Porcine 5,000 UNIT/ML VIAL 5000 UNIT SUBCUT ×2 (09:39→21:05)
[2020-12-07] MEDS: Atorvastatin Calcium 40 MG TABLET PO (09:40)
[2020-12-07] MEDS: polyethylene glycoL 3350 17 GM POWD.PACK PO (09:40)
[2020-12-07] MEDS: Cholecalciferol (Vitamin D3) 25 MCG TABLET PO (09:40)
[2020-12-07 11:31] LABS: Glucose, Whole Blood 317 mg/dL (60-115)
[2020-12-07] MEDS: Lactulose 20 GM/30 ML SOLUTION PO (12:00)
--- NOTE | 2020-12-07 13:23 | P.PNIM_ITS ---
Subjective Subjective Date of Service: 12/07/20 Interval History: seen and examined spoken with him in his own language he denies abdominal pain nor chest pain although not sure how much he truly understands Review of Systems no cp or abd pain Review of Systems: Yes all other systems are reviewed and are negative Physical Exam Vital Signs: Vital Signs: Last Vital Signs Temp 98.3 F 12/07/20 11:14 Pulse 91 12/07/20 11:14 Resp 15 12/07/20 11:14 BP 139/76 12/07/20 11:14 Pulse Ox 92 12/07/20 11:14 Body Mass Index 29.6 Const: Other: General - no acute distress, appears comfortable Cardiovascular - s1s2; +JVD Lungs - diminshed Abdomen - distended but soft without rebounding - hardin in place Extremities - no edema bilaterally Neuro - awake and alert, no focal deficits, ? memory loss Objective Data Active Medications Acetaminophen (Acetaminophen 325 Mg Tablet) 650 mg PO Q6H PRN PRN Reason: Pain, Mild (Pain Scale 1-3) Atorvastatin Calcium (Atorvastatin Calcium 40 Mg Tablet) 40 mg PO DAILY [facility] Last Admin: 12/07/20 09:40 Dose: 40 mg Documented by: CARLOS A Bumetanide (Bumetanide 1 Mg/4 Ml Vial) 1 mg IVPUSH BID@0800,1800 [facility]; Protocol Last Admin: 12/06/20 09:20 Dose: Not Given Documented by: TUSHAR Non-Admin Reason: states hold for now Heparin Sodium (Porcine) (Heparin Sodium,Porcine 5,000 Unit/Ml Vial) 5,000 unit SUBCUT Q12H [facility] Last Admin: 12/07/20 09:39 Dose: 5,000 unit Documented by: CARLOS A Insulin Glargine (Insulin Glargine,Hum.Rec.Anlog 100 Unit/Ml 10 Ml Vial) 30 unit SUBCUT BEDTIME [facility] Last Admin: 12/06/20 21:22 Dose: 30 unit Documented by: SENG Insulin Human Lispro (Insulin Lispro 100 Unit/Ml 3 Ml Vial) 0 unit SUBCUT QIDACHS [facility]; Protocol Last Admin: 12/07/20 12:00 Dose: 8 unit Documented by: CARLOS A Levothyroxine Sodium (Levothyroxine Sodium 50 Mcg Tablet) 50 mcg PO DAILY@0600 [facility] Last Admin: 12/07/20 05:32 Dose: 50 mcg Documented by: SENG Melatonin (Melatonin 3 Mg Tablet) 6 mg PO BEDTIME [facility] Last Admin: 12/06/20 21:23 Dose: 6 mg Documented by: SENG Pharmacy Consult (Consult Rx Perform Med Rec) 1 each MISCELLANE ONCE PRN PRN Reason: Consult order Polyethylene Glycol (Polyethylene Glycol 3350 17 Gm Powd.Pack) 17 gm PO DAILY [facility] Last Admin: 12/07/20 09:40 Dose: 17 gm Documented by: CARLOS A Sodium Chloride (0.9 % Sodium Chloride Flush 3 Ml Syringe) 3 ml IVFLUSH QSHIFT [facility] Last Admin: 12/07/20 09:39 Dose: 3 ml Documented by: CARLOS A Tamsulosin HCl (Tamsulosin Hcl 0.4 Mg Capsule) 0.4 mg PO BEDTIME [facility] Last Admin: 12/06/20 21:23 Dose: 0.4 mg Documented by: SENG Vitamin D (Cholecalciferol (Vitamin D3) 25 Mcg Tablet) 25 mcg PO DAILY [facility] Last Admin: 12/07/20 09:40 Dose: 25 mcg Documented by: CARLOS A Labs CBC & Chem 7: 12/06/20 06:55 12/06/20 06:55 Labs: Laboratory Results - last 24 hr 12/06/20 12/06/20 12/07/20 16:10 20:28 07:24 POC Glucose 213 H 372 H* 235 H 12/07/20 11:11 POC Glucose 317 H Microbiology Microbiology Results: Microbiology 12/05/20 02:23 Blood Culture - Preliminary Blood - Venous No growth after 48 hours. 12/05/20 02:23 Blood Culture - Preliminary Blood - Venous No growth after 48 hours. Assessment and Plan (1) Heart failure with reduced ejection fraction: Status: Acute Assessment and Plan: This is a 70 yo M with multiple medical issues including HFrEF, CAD - s/p CABG, DM, CKD3/4, HTN, Memory loss, history of prostate procedure who presents to the hospital with sudden onset shortness of breath and wheezing with associated sweating. He was noted to have constipation and urinary retention while in the ED. There was also concern over chest pain and possible CHF exacerbation. He will be observed over night. Acute on chronic HFrEF exacerbation restart IV bumex, bp improved i/o, daily weights cardiology input appreciated Hypotension likely from medications and not sepsis bp rebounding, restart home meds slowly -- will add on coreg at lower dose today Acute Urinary retention Hardin placed by urology -- d/w Dr. Barlow --> needs to d/c with catheter in place and f/u with him in the office in a few weeks start flomax Mild hypernatremia repea bmp today DM Lantus + sliding scale diabetic diet CAD - s/p CABG continue baseline meds not on asa -- unclear why CKD3/4 monitor chronic, not due to infection Constipation start Miralax daily Full Code DVT pptx, subcut. heparin Quality Stroke Does the patient have a stroke diagnosis?: No VTE Prior VTE?: No VTE Risk Level:: Medical - moderate - high VTE Device Contraindication: N/A - Device Ordered VTE Drug Contraindication: N/A - Med Ordered
--- NOTE | 2020-12-07 14:05 | PM.PNCARD ---
Subjective Subjective Date of Service: 12/07/20 Interval history: Breathing is better. Still has abdominal distension and is complaining of constipation. Physical Exam Vital Signs: Last Vital Signs Temp 98.3 F 12/07/20 11:14 Pulse 91 12/07/20 11:14 Resp 15 12/07/20 11:14 BP 139/76 12/07/20 11:14 Pulse Ox 92 12/07/20 11:14 Body Mass Index 29.6 ?GENERAL APPEARANCE: in no acute distress, pleasant. NECK: no carotid bruit, mild jugular venous distention. SKIN: no suspicious lesions, warm and dry. HEART: no murmurs, regular rate and rhythm. LUNGS:? Mild end-expiratory wheezes ABDOMEN:? distended, tense, nontender. EXTREMITIES: no edema. PERIPHERAL PULSES: equal. NEUROLOGIC: No gross deficits, AAO X 3 Results Labs and Meds Result diagrams: 12/06/20 06:55 12/06/20 06:55 Lab results: Laboratory Results - last 24 hr 12/06/20 12/06/20 12/07/20 16:10 20:28 07:24 POC Glucose 213 H 372 H* 235 H 12/07/20 11:11 POC Glucose 317 H Imaging Radiologist's impression: Impressions Abdomen/Pelvis CT 12/05/20 04:52 IMPRESSION: 1. No acute findings identified in the chest/abdomen/pelvis. 2. Tracheomalacia. 3. Bibasilar atelectasis, greatest in the right middle lobe adjacent to the elevated hemidiaphragm. Chest CT 12/05/20 04:52 IMPRESSION: 1. No acute findings identified in the chest/abdomen/pelvis. 2. Tracheomalacia. 3. Bibasilar atelectasis, greatest in the right middle lobe adjacent to the elevated hemidiaphragm. Progress Note: A&P Assessment and plan (1) CHF exacerbation: Status: Acute Assessment and Plan: 70-year-old gentleman ischemic cardiomyopathy and previous myocardial infarction here with shortness of breath, acute urinary retention and constipation. Abdominal is distended and he is still complaining of constipation. He was overloaded clinically and was diuresed. His blood pressure was low and his home medications were held. He was taking lisinopril 40 mg based on med rec, hydralazine 25 mg twice a day and carvedilol 25 mg twice a day. I think clinically he looks much better at this stage. He can be changed back to his home dose of Bumex 2 mg twice a day orally. I think we can resume his carvedilol at 6.25 mg twice a day and see if he can tolerate it. Hold the DILLON-inhibitor right now because his creatinine is higher than usual and his labs are pending so far. I will repeat his echocardiogram to assess his LVEF. Thank you for allowing me to participate in the care of your patient. Please feel free to contact me if you have any questions. Fall Risk Details Current Medications: Current Medications Generic Name Dose Route Start Last Admin Trade Name Freq PRN Reason Stop Dose Admin Acetaminophen 650 mg 12/05/20 09:22 Acetaminophen 325 Mg Tablet PO Q6H PRN Pain, Mild (Pain Scale 1-3) Albuterol/Ipratropium 3 ml 12/07/20 13:23 Albuterol/Iprat 2.5/0.5mg 3 Ml Ampul.Neb INHALE RQ4H PRN Shortness of Breath Atorvastatin Calcium 40 mg 12/06/20 09:00 12/07/20 09:40 Atorvastatin Calcium 40 Mg Tablet PO 40 mg DAILY [facility] Administration Bumetanide 1 mg 12/05/20 18:00 12/06/20 09:20 Bumetanide 1 Mg/4 Ml Vial IVPUSH Not Given BID@0800,1800 [facility] Protocol Heparin Sodium (Porcine) 5,000 unit 12/05/20 09:30 12/07/20 09:39 Heparin Sodium,Porcine 5,000 Unit/Ml Vial SUBCUT 5,000 unit Q12H [facility] Administration Insulin Glargine 30 unit 12/05/20 21:00 12/06/20 21:22 Insulin Glargine,Hum.Rec.Anlog 100 Unit/Ml 10 Ml Vial SUBCUT 30 unit BEDTIME [facility] Administration Insulin Human Lispro 0 unit 12/05/20 11:30 12/07/20 12:00 Insulin Lispro 100 Unit/Ml 3 Ml Vial SUBCUT 8 unit QIDACHS [facility] Administration Protocol Levothyroxine Sodium 50 mcg 12/06/20 06:00 12/07/20 05:32 Levothyroxine Sodium 50 Mcg Tablet PO 50 mcg DAILY@0600 [facility] Administration Melatonin 6 mg 12/05/20 21:00 12/06/20 21:23 Melatonin 3 Mg Tablet PO 6 mg BEDTIME M[facility]ITA Administration Pharmacy Consult 1 each 12/05/20 07:18 Consult Rx Perform Med Rec MISCELLANE ONCE PRN Consult order Polyethylene Glycol 17 gm 12/05/20 09:45 12/07/20 09:40 Polyethylene Glycol 3350 17 Gm Powd.Pack PO 17 gm DAILY [facility] Administration Sodium Chloride 3 ml 12/05/20 16:00 12/07/20 09:39 0.9 % Sodium Chloride Flush 3 Ml Syringe IVFLUSH 3 ml QSHIFT [facility] Administration Tamsulosin HCl 0.4 mg 12/05/20 21:00 12/06/20 21:23 Tamsulosin Hcl 0.4 Mg Capsule PO 0.4 mg BEDTIME [facility]ITA Administration Vitamin D 25 mcg 12/06/20 09:00 12/07/20 09:40 Cholecalciferol (Vitamin D3) 25 Mcg Tablet PO 25 mcg DAILY MARTITA Administration Time Spent With Patient Time: Total time spent is greater than 50% in coordination of care (as documented) at patient's floor/unit and/or counseling patient: Time with patient: 25 - 35 minutes Progress Note: Quality Stroke Does the patient have a stroke diagnosis?: No Procedures Date of Service Date of Service: 12/07/20
[2020-12-07 14:45] LABS: Anion Gap 13 (12-20); Blood Urea Nitrogen 58 mg/dL (9-16); Carbon Dioxide 27 mmol/L (22-29); Chloride 104 mmol/L (96-108); Creatinine Clr Calc Pharmacy 28.4; Estimated Glomerular Filt Rate 28; Potassium 4.4 mmol/L (3.3-5.1); Sodium 140 mmol/L (135-145)
[2020-12-07 15:28] LABS: Glucose Random 443 mg/dL (60-115)
[2020-12-07 16:41] LABS: Glucose, Whole Blood 373 mg/dL (60-115)
[2020-12-07] MEDS: Bumetanide 1 MG TABLET 2 MG PO (17:02)
--- NOTE | 2020-12-07 17:22 | MHC.SL.SWA ---
Speech Pathologist Impression: Risk of Aspiration Oralpharyngeal Dysphagia Risk of Aspiration Due to: Medically Fragile Dysphasia Diet Status: Downgrade Liquid Consistency and Strategies for Safe Swallow: Liquid Intake Recommendation: Estelle Thick Liquid Intake Strategies: Small Sips No Straws Liquids by Teaspoon Only Solid Food Consistency: Dietary Recommendations: Chopped/Advanced (NDD3) Additional Modifications to Solid Foods: Recommend CHOPPED/ADVANCED (NDD3) solids to reduce fatigue when chewing, moistened in sauce/gravy, with NECTAR THICK liquid by teaspoon or MONITORED individual cup sip, pills WHOLE or CRUSHED in PUREE. Patient is able to feed himself, but is recommended TOTAL SUPERVISION to monitor for any s/s of aspiration and to ensure aspiration precautions. If any s/s of aspiration are observed tray to be withheld pending PO trials with [employer]. Oral Medication Intake: Crushed with Puree Compensatory Strategies and Precautions to be Taken for Safe Swallow: Sitting Upright (90 deg) No Straw Liquids from Spoon Small Bites and Sips Alternate Liquids/Solids Rate of Ingestion Change Oral Check Supervision While Eating and Drinking for Safe Swallow: Total Supervision (1:1) Swallowing Recommended Treatments: Compens. Strategy Educat. Recommendation for Speech: Inpatient Speech Therapy Comment: [employer] will continue to follow. Tech Writer Clinican/Clinical Fellow: No Supervisory Statement: I have reviewed and agree with the student/clinical fellow's documentation: N/A Speech Language Pathologist: Adriane Armando M.A., CCC-[employer]
[2020-12-07] MEDS: Albuterol/Iprat 2.5/0.5MG 3 ML AMPUL.NEB INHALE (18:12)
[2020-12-07 20:31] LABS: Appearance Urine CLEAR; Color Urine YELLOW; Glucose Urine UA >=1000 MG/DL (NEG); Leukocyte Esterase Urine NEG (NEG); Nitrite Urine NEG (NEG); PH 5.5 (5.0-8.0); Urine Blood 3+ (NEG); Urine Ketones NEG (NEG); Urine Protein TRACE MG/DL (NEG-TRACE)
[2020-12-07 20:36] LABS: Bacteria Urine 1+ /LPF
[2020-12-07 20:37] LABS: Squamous Epithelial Cell Urine TRACE /LPF; WBC Urine 0-2 /HPF (0-4)
[2020-12-07] MEDS: Melatonin 3 MG TABLET 6 MG PO (21:04)
[2020-12-07] MEDS: carvediloL 6.25 MG TABLET PO (21:04)
[2020-12-07] MEDS: Acetaminophen 325 MG TABLET 650 MG PO (21:05)
[2020-12-07] MEDS: Tamsulosin HCL 0.4 MG CAPSULE PO (21:05)
[2020-12-07] MEDS: Insulin Glargine,Hum.rec.anlog 100 UNIT/ML 10 ML VIAL 30 UNIT SUBCUT ×2 (21:06→21:12)
[2020-12-08] VITALS (10 sets, daily range): BP systolic 100–138; BP diastolic 57–71; PULSE 70–101; RESP 18–20; TEMP 36.4–37.3; O2SAT 91–100
[2020-12-08] MEDS: Albuterol/Iprat 2.5/0.5MG 3 ML AMPUL.NEB INHALE (04:12)
[2020-12-08] MEDS: Morphine Sulfate 2 MG/ML CARTRIDGE 1 MG IVPUSH (04:32)
[2020-12-08 05:03] LABS: Glucose, Whole Blood 119 mg/dL (60-115)
[2020-12-08] MEDS: Levothyroxine Sodium 50 MCG TABLET PO (06:30)
[2020-12-08 06:41] LABS: Anion Gap 18 (12-20); Blood Urea Nitrogen 59 mg/dL (9-16); Calcium 9.6 mg/dL (8.4-10.2); Carbon Dioxide 28 mmol/L (22-29); Chloride 105 mmol/L (96-108); Creatinine Clr Calc Pharmacy 26.1; Estimated Glomerular Filt Rate 26; Glucose Random 185 mg/dL (60-115); Potassium 5.2 mmol/L (3.3-5.1); Sodium 146 mmol/L (135-145)
--- NOTE | 2020-12-08 07:24 | PC.NURSE ---
shift note 7p-7a pt with initial temp 102.[address] Hunt, blood cultures ordered & drawn & stat PCXr done (during pcxr [place] certified court/medical interpreter utilized & pt verbalizes understanding- results reported. tylenol given crushed with a/s with temp imroved to 98.8, tolerated well, aspiration precautions maintained. 5L nc in place. ua sent as ordered & reported. 0430 pt with harsh exp wheezes audible & fine crackles R base 1/3 up. RT paged & udn given with somewhat an effect. call placed to Dr. Wray & morphine 1mg iv given with effect. Dr. Bullard in to see pt approx 0500 with no new orders..
[2020-12-08] MEDS: Insulin Lispro 100 UNIT/ML 3 ML VIAL SUBCUT ×4 (07:40→20:53)
[2020-12-08] MEDS: 0.9 % Sodium Chloride Flush 3 ML SYRINGE IVFLUSH ×3 (07:41→20:54)
[2020-12-08] MEDS: Cholecalciferol (Vitamin D3) 25 MCG TABLET PO (07:46)
[2020-12-08] MEDS: Bumetanide 1 MG TABLET 2 MG PO (07:46)
[2020-12-08] MEDS: carvediloL 6.25 MG TABLET PO ×2 (07:47→20:56)
[2020-12-08] MEDS: Atorvastatin Calcium 40 MG TABLET PO (07:47)
[2020-12-08] MEDS: polyethylene glycoL 3350 17 GM POWD.PACK PO (07:51)
[2020-12-08 08:01] LABS: Glucose, Whole Blood 189 mg/dL (60-115)
[2020-12-08 08:43] LABS: Basophils Percent Auto 0.2 % (0-2); Imm Gran Abs Auto 0.09 X10*3/uL (0.00-0.03); Imm Gran Pct Auto 0.5 % (0.0-0.4); Monocytes Percent Auto 5.1 % (2-11)
[2020-12-08 08:45] LABS: Hematocrit 37.7 % (42-52); Lymphocytes Absolute Auto 1.2 X10*3/uL (1.2-4.9); Lymphocytes Percent Auto 6.6 % (20-40); Mean Corpuscular HGB Conc 29.2 g/dl (31.0-36.0); Mean Corpuscular Hemoglobin 24.9 pg (27.0-33.0); Mean Corpuscular Volume 85.3 fL (80-98); Mean Platelet Volume 13.6 fL (9.4-12.4); Neutrophils Absolute Auto 16.6 X10*3/uL (2.0-8.3); Neutrophils Percent Auto 87.6 % (45-73); Platelet Count 179 X10*3/uL (160-400); Red Blood Count 4.42 X10*6/uL (4.60-5.80); Red Cell Distribution Width 14.2 % (11.0-16.0); White Blood Count 18.9 X10*3/uL (4.8-10.8)
[2020-12-08 08:50] LABS: MANUAL DIFF FLAG NO
--- NOTE | 2020-12-08 08:54 | MHC.CM.PN ---
at this time dc plan remains the same, for patient to return home no svcs. cm to cont. to follow.
--- NOTE | 2020-12-08 10:06 | MHC.SL.DTX ---
Changes made to current diet?: NO Dysphasia Diet Status: Continue with current diet consistency of NDD3 CHOPPED/ADVANCED solids and NECTAR THICK liquids. Liquid Consistency and Strategies: Liquid Intake Recommendation: [place] Thick Compensatory Strategies for Safe Swallow: Small Sips No Straws Compensatory Strategies for Safe Swallow(b): Sitting Upright (90 deg) No Straw Small Bites and Sips Alternate Liquids/Solids Rate of Ingestion Change Solid Food Consistency: Dietary Recommendations: Chopped/Advanced (NDD3) Additional Modifications to Solids: Recommend CHOPPED/ADVANCED (NDD3) solids to reduce fatigue when chewing, moistened in sauce/gravy, with NECTAR THICK liquid by teaspoon or MONITORED individual cup sip, pills WHOLE or CRUSHED in PUREE. Patient is able to feed himself, but is recommended TOTAL SUPERVISION to monitor for any s/s of aspiration and to ensure aspiration precautions. If any s/s of aspiration are observed tray to be withheld pending PO trials with SCREEN ROLLER. Oral Medication Intake: Crushed with Puree Strategies and Precautions to be Taken for Safe Swallow: Compensatory Swallowing Status: Sitting Upright (90 deg) No Straw Small Bites and Sips Alternate Liquids/Solids Rate of Ingestion Change Supervision While Eating and/Drinking: Total Supervision (1:1) Swallowing Recommended Treatments: Compens. Strategy Educat. Level of Impact on: Daily activities: Moderate Interpersonal interactions: None Education: None Employment: None Community: Moderate Recommendation for Speech: Inpatient Speech Therapy Comment: SCREEN ROLLER will continue to follow. Additional Comments: Treatment: Pt was seen for dysphagia treatment while seated upright in bed. He verbalized that he ate breakfast but did not like it. Pt tolerated small pieces of a cracker for which a prolonged but functional oral phase was noted. Pt independently alternated liquids and solids to clear min oral residuals post swallow. Pt elicited 1 throat clear with intake of nectar thick liquids via cup sip, which occurred when pt took a large, continuous sip. Education was provided re: the importance of small, single sips to reduce the risk of aspiration. Continue with current diet consistency of NDD3 chopped/advanced solids and nectar thick liquids. Aspiration precautions and total supervision should be continued, as pt requires cues for a slow rate of intake to reduce the risk of aspiration. SCREEN ROLLER will continue to follow pt. Assessment: Policy Writer Clinican/Clinical Fellow: No Supervisory Statement: I have reviewed and agree with the student/clinical fellow's documentation: N/A Speech Language Pathologist: Ginny Haynes M.A., CCC-SCREEN ROLLER
[2020-12-08] MEDS: Heparin Sodium,Porcine 5,000 UNIT/ML VIAL 5000 UNIT SUBCUT ×2 (11:23→20:54)
[2020-12-08] MEDS: Ampicillin Sodium/Sulbactam Na 1.5 GM in 0.9 % Sodium Chloride 100 ML IV ×2 (11:29→23:09)
[2020-12-08] MEDS: Acetaminophen 325 MG TABLET 650 MG PO (11:30)
[2020-12-08 11:50] LABS: Glucose, Whole Blood 233 mg/dL (60-115)
--- NOTE | 2020-12-08 12:01 | P.PNIM_ITS ---
Subjective Subjective Date of Service: 12/08/20 Interval History: seen and examined spoken with him in his own language he denies cp or sob, denies abdominal pain per RN -- had BM yesterday, but none so far this AM Review of Systems no cp or abd pain Physical Exam Vital Signs: Vital Signs: Last Vital Signs Temp 97.6 F 12/08/20 11:33 Pulse 89 12/08/20 11:33 Resp 18 12/08/20 11:33 BP 112/66 12/08/20 11:33 Pulse Ox 98 12/08/20 11:33 Body Mass Index 29.6 Const: Other: General - no acute distress, appears comfortable Cardiovascular - s1s2; +JVD Lungs - diminshed Abdomen - distended but soft without rebounding - hardin in place Extremities - no edema bilaterally Neuro - awake and alert, no focal deficits, ? memory loss Objective Data Active Medications Acetaminophen (Acetaminophen 325 Mg Tablet) 650 mg PO Q6H PRN PRN Reason: Pain, Mild (Pain Scale 1-3) Last Admin: 12/08/20 11:30 Dose: 650 mg Documented by: ASHLEY Albuterol/Ipratropium (Albuterol/Iprat 2.5/0.5mg 3 Ml Ampul.Neb) 3 ml INHALE RQ4H PRN PRN Reason: Shortness of Breath Last Admin: 12/08/20 04:12 Dose: 3 ml Documented by: BECKY Atorvastatin Calcium (Atorvastatin Calcium 40 Mg Tablet) 40 mg PO DAILY [facility] Last Admin: 12/08/20 07:47 Dose: 40 mg Documented by: ASHLEY Bumetanide (Bumetanide 1 Mg Tablet) 2 mg PO BID@0800,1700 [facility]; Protocol Last Admin: 12/08/20 07:46 Dose: 2 mg Documented by: ASHLEY Carvedilol (Carvedilol 6.25 Mg Tablet) 6.25 mg PO BID [facility]; Protocol Last Admin: 12/08/20 07:47 Dose: 6.25 mg Documented by: ASHLEY Heparin Sodium (Porcine) (Heparin Sodium,Porcine 5,000 Unit/Ml Vial) 5,000 unit SUBCUT Q12H [facility] Last Admin: 12/08/20 11:23 Dose: 5,000 unit Documented by: ASHLEY Ampicillin Sodium/Sulbactam (Sodium 1.5 gm/ Sodium Chloride) 100 mls @ 200 mls/hr IV Q12H [facility] Last Admin: 12/08/20 11:29 Dose: 200 mls/hr Documented by: ASHLEY Insulin Glargine (Insulin Glargine,Hum.Rec.Anlog 100 Unit/Ml 10 Ml Vial) 30 unit SUBCUT BEDTIME [facility] Last Admin: 12/07/20 21:12 Dose: 30 unit Documented by: VANNA Insulin Human Lispro (Insulin Lispro 100 Unit/Ml 3 Ml Vial) 0 unit SUBCUT QIDACHS [facility]; Protocol Last Admin: 12/08/20 11:33 Dose: 4 unit Documented by: ASHLEY Levothyroxine Sodium (Levothyroxine Sodium 50 Mcg Tablet) 50 mcg PO DAILY@0600 [facility] Last Admin: 12/08/20 06:30 Dose: 50 mcg Documented by: VANNA Melatonin (Melatonin 3 Mg Tablet) 6 mg PO BEDTIME [facility] Last Admin: 12/07/20 21:04 Dose: 6 mg Documented by: VANNA Pharmacy Consult (Consult Rx Perform Med Rec) 1 each MISCELLANE ONCE PRN PRN Reason: Consult order Polyethylene Glycol (Polyethylene Glycol 3350 17 Gm Powd.Pack) 17 gm PO DAILY [facility] Last Admin: 12/08/20 07:51 Dose: 17 gm Documented by: ASHLEY Sodium Chloride (0.9 % Sodium Chloride Flush 3 Ml Syringe) 3 ml IVFLUSH QSHIFT [facility] Last Admin: 12/08/20 07:41 Dose: 3 ml Documented by: ASHLEY Tamsulosin HCl (Tamsulosin Hcl 0.4 Mg Capsule) 0.4 mg PO BEDTIME [facility] Last Admin: 12/07/20 21:05 Dose: 0.4 mg Documented by: VANNA Vitamin D (Cholecalciferol (Vitamin D3) 25 Mcg Tablet) 25 mcg PO DAILY [facility] Last Admin: 12/08/20 07:46 Dose: 25 mcg Documented by: ASHLEY Labs CBC & Chem 7: 12/08/20 Unknown 12/08/20 05:57 Labs: Laboratory Results - last 24 hr 12/07/20 12/07/20 12/07/20 13:49 16:37 20:20 MCV MCH MCHC RDW Plt Count MPV Immature Gran % (Auto) Neut % (Auto) Lymph % (Auto) [place] % (Auto) Eos % (Auto) Baso % (Auto) Lymph # (Auto) [place] # (Auto) Eos # (Auto) Baso # (Auto) Abs Immat Gran (auto) Absolute Neuts (auto) Absolute Nucleated RBC Nucleated RBC % (auto) Anion Gap 13 Estim Creat Clear Calc 28.4 Estimated GFR 28 POC Glucose 373 H* Random Glucose 443 H* Calcium 9.0 Urine Color YELLOW Urine Appearance CLEAR Urine pH 5.5 Ur Specific [place] 1.010 Urine Protein TRACE Urine Glucose (UA) >=1000 H Urine Ketones NEG Urine Blood 3+ H Urine Nitrite NEG Ur Leukocyte Esterase NEG Urine RBC 15-29 H Urine WBC 0-2 Ur Squamous Epith Cells TRACE Urine Bacteria 1+ 12/08/20 12/08/20 12/08/20 05:00 05:57 07:25 MCV MCH MCHC RDW Plt Count MPV Immature Gran % (Auto) Neut % (Auto) Lymph % (Auto) [place] % (Auto) Eos % (Auto) Baso % (Auto) Lymph # (Auto) [place] # (Auto) Eos # (Auto) Baso # (Auto) Abs Immat Gran (auto) Absolute Neuts (auto) Absolute Nucleated RBC Nucleated RBC % (auto) Anion Gap 18 Estim Creat Clear Calc 26.1 Estimated GFR 26 POC Glucose 119 H 189 H Random Glucose 185 H D Calcium 9.6 D Urine Color Urine Appearance Urine pH Ur Specific [place] Urine Protein Urine Glucose (UA) Urine Ketones Urine Blood Urine Nitrite Ur Leukocyte Esterase Urine RBC Urine WBC Ur Squamous Epith Cells Urine Bacteria 12/08/20 12/08/20 11:17 Unknown MCV 85.3 MCH 24.9 L MCHC 29.2 L RDW 14.2 Plt Count 179 MPV 13.6 H Immature Gran % (Auto) 0.5 H Neut % (Auto) 87.6 H Lymph % (Auto) 6.6 L [place] % (Auto) 5.1 Eos % (Auto) 0.0 Baso % (Auto) 0.2 Lymph # (Auto) 1.2 [place] # (Auto) 1.0 Eos # (Auto) 0.0 Baso # (Auto) 0.0 Abs Immat Gran (auto) 0.09 H Absolute Neuts (auto) 16.6 H Absolute Nucleated RBC 0.000 Nucleated RBC % (auto) 0.0 Anion Gap Estim Creat Clear Calc Estimated GFR POC Glucose 233 H Random Glucose Calcium Urine Color Urine Appearance Urine pH Ur Specific [place] Urine Protein Urine Glucose (UA) Urine Ketones Urine Blood Urine Nitrite Ur Leukocyte Esterase Urine RBC Urine WBC Ur Squamous Epith Cells Urine Bacteria Assessment and Plan (1) CHF exacerbation: Status: Acute Assessment and Plan: This is a 70 yo M with multiple medical issues including HFrEF, CAD - s/p CABG, DM, CKD3/4, HTN, Memory loss, history of prostate procedure who presents to the hospital with sudden onset shortness of breath and wheezing with associated sweating. He was noted to have constipation and urinary retention while in the ED. There was also concern over chest pain and possible CHF exacerbation. He will be observed over night. Acute Respiratory failure with hypoxia due to aspiration pneumonia spiked temp overnight and required 15L by NC now on 4L and clinically improved started on Unasyn this AM, f/u cultures speech following for safest diet consistency Acute on chronic HFrEF exacerbation oral diuretics restarted yesterday evening BP dropped, likely due to to infectious process but improved will hold diuretics today low dose coreg @ 6.25mg bid (on 25mg BID at home) Hypotension resolved, bp improved Acute Urinary retention Hardin placed by urology -- d/w Dr. Barlow --> needs to d/c with catheter in place and f/u with him in the office in a few weeks start flomax Mild hypernatremia encourage oral hydration f/u with labs tomorrow DM Lantus + sliding scale diabetic diet CAD - s/p CABG continue baseline meds not on asa -- unclear why CKD3/4 monitor chronic, not due to infection Constipation miralax daily, add senna/colace combo Full Code DVT pptx, subcut. heparin Quality Stroke Does the patient have a stroke diagnosis?: No VTE Prior VTE?: No VTE Risk Level:: Medical - moderate - high VTE Device Contraindication: N/A - Device Ordered VTE Drug Contraindication: N/A - Med Ordered
--- NOTE | 2020-12-08 12:30 | CA_ITS ---
Transthoracic Echocardiogram Patient (Last, First, Middle): Stuart Rich, Gender: Male Date of : 1950 Age: 70 Procedure Date: 12/08/2020 Procedure Type: Transthoracic Echocardiogram Location: [facility] Height: 165.1 cm Weight: 80.29 kg BSA: 1.88 m2 Heart Rate: bpm BP: 143 / 83 mmHg Table Games Floor Supervisor: BERENICE Referring MD: Norm Rivera MD Symptoms: CHF, low BP Study Quality: Technically Difficult/Contrast Conclusions: - Normal left ventricular cavity size. There is normal left ventricular wall thickness. The left ventricular systolic function is mildly decreased. The visually estimated ejection fraction is between 45-50%. - The inferoseptal wall, anterolateral wall, and basal inferolateral segment are akinetic Findings Procedure Information Contrast agent, definity, is being given per protocol without apparent complications. Left Ventricle Normal left ventricular cavity size. There is normal left ventricular wall thickness. The left ventricular systolic function is mildly decreased. The visually estimated ejection fraction is between 45-50%. There is evidence of regional wall motion abnormalities. Abnormal diastolic function is noted. Spectral Doppler is indicative of an impaired relaxation filling pattern. E/E prime ratio is between 8 and 15 consistent with indeterminate filling pressures. Wall Motion Rest Echo Findings The inferoseptal wall, anterolateral wall, and basal inferolateral segment are akinetic. Right Ventricle Normal right ventricular cavity size and systolic function. Atria The left atrium is normal in size. Aortic Valve There is mild calcification of the aortic valve. There is no aortic valve stenosis. There is no aortic valve regurgitation. Mitral Valve Normal mitral valve structure and function. There is mild mitral annular calcification. There is no mitral valve regurgitation. There is no mitral valve stenosis. Pulmonic Valve The pulmonic valve is likely normal. Tricuspid Valve Normal tricuspid valve structure and function. There is mild tricuspid valve regurgitation. Tricuspid regurgitation envelope is inadequate for calculation of right ventricular systolic pressure. Normal right atrial pressure. Great Vessels All visible segments of the aorta are normal in size. Venous The inferior vena cava is normal in size and collapses greater than 50% with inspiration. Pericardium/Pleural There is no evidence of pericardial effusion. Prior Study Comparison No significant change compared to prior study dated: 02/15/2020. Measurements 2D Linear Measurements IVSd: 1.10 0.6-0.9/0.6-1.0 cm LVIDd: 4.68 3.9-5.3/4.2-5.9 cm LVIDd Index: 2.49 2.4-3.2/2.2-3.1 cm/m2 LVIDs: 3.75 2.0-3.6 cm LVPWd: 0.82 0.7-1.1 cm Ao Root: 3.50 2.1-3.5 cm LA Diam: 4.00 2.7-3.8/3.0-4.0 cm LAIDs Index: 2.13 1.5-2.3 cm/m2 LV Mass: 192.94 67-162/88-224 g LV Mass Index: 102.63 43-95/49-115 g/m2 LVOT Diam: 2.30 3.0+(-)1.3 cm 2D Systolic Function EF 4C: 46.40 >55% EF 2C: 44.10 >55% Mitral Valve E'Lateral: 8.92 E'Medial: 6.31 Aortic Valve AoV Pk Fabio: 1.25 AoV Mn Fabio: 0.85 AoV VTI: 0.25 AoV Pk Grad: 6.00 Aov Mn Grad: 3.00 ELISSA Cont.VTI: 2.50 LVOT LVOT Pk Fabio: 0.76 LVOT Mn Fabio: 0.49 LVOT VTI: 0.15 LVOT Pk Grad: 2.00 LVOT Mn Grad: 1.00 LVOT Diam: 2.30 LVOT Area: 4.15 Diastolic Function E'Medial: 6.31 E' Laterial: 8.92 Great Vessels Aorta Ao Root-2D: 3.50 2.0-3.7 cm Ao Asc: 3.40 2.1-3.4 cm Updated in Other Vendor System with Status of Final Norm Rivera MD electronically signed on 12/08/2020 8:50:51 PM with status of Final
[2020-12-08] MEDS: Sennosides/Docusate Sodium TABLET 2 TAB PO ×2 (13:11→20:54)
--- NOTE | 2020-12-08 14:33 | PM.PNCARD ---
Subjective Subjective Date of Service: 12/08/20 Interval history: Had aspiration last night. He is saying he is feeling better today. Physical Exam Vital Signs: Last Vital Signs Temp 97.6 F 12/08/20 11:33 Pulse 89 12/08/20 11:33 Resp 18 12/08/20 11:33 BP 112/66 12/08/20 11:33 Pulse Ox 98 12/08/20 11:33 Body Mass Index 29.6 ?GENERAL APPEARANCE: in no acute distress, pleasant. NECK: no carotid bruit, mild jugular venous distention. SKIN: no suspicious lesions, warm and dry. HEART: no murmurs, regular rate and rhythm. LUNGS:? Mild end-expiratory wheezes ABDOMEN:? distended, tense, nontender. EXTREMITIES: no edema. PERIPHERAL PULSES: equal. NEUROLOGIC: No gross deficits, AAO X 3 Results Labs and Meds Result diagrams: 12/08/20 Unknown 12/08/20 05:57 Lab results: Laboratory Results - last 24 hr 12/07/20 12/07/20 12/07/20 13:49 16:37 20:20 WBC RBC Hgb Hct MCV MCH MCHC RDW Plt Count MPV Immature Gran % (Auto) Neut % (Auto) Lymph % (Auto) [place] % (Auto) Eos % (Auto) Baso % (Auto) Lymph # (Auto) [place] # (Auto) Eos # (Auto) Baso # (Auto) Abs Immat Gran (auto) Absolute Neuts (auto) Absolute Nucleated RBC Nucleated RBC % (auto) Sodium 140 Potassium 4.4 Chloride 104 Carbon Dioxide 27 Anion Gap 13 BUN 58 H Creatinine 2.30 H Estim Creat Clear Calc 28.4 Estimated GFR 28 POC Glucose 373 H* Random Glucose 443 H* Calcium 9.0 Urine Color YELLOW Urine Appearance CLEAR Urine pH 5.5 Ur Specific [place] 1.010 Urine Protein TRACE Urine Glucose (UA) >=1000 H Urine Ketones NEG Urine Blood 3+ H Urine Nitrite NEG Ur Leukocyte Esterase NEG Urine RBC 15-29 H Urine WBC 0-2 Ur Squamous Epith Cells TRACE Urine Bacteria 1+ 12/08/20 12/08/20 12/08/20 05:00 05:57 07:25 WBC RBC Hgb Hct MCV MCH MCHC RDW Plt Count MPV Immature Gran % (Auto) Neut % (Auto) Lymph % (Auto) [place] % (Auto) Eos % (Auto) Baso % (Auto) Lymph # (Auto) [place] # (Auto) Eos # (Auto) Baso # (Auto) Abs Immat Gran (auto) Absolute Neuts (auto) Absolute Nucleated RBC Nucleated RBC % (auto) Sodium 146 H Potassium 5.2 H Chloride 105 Carbon Dioxide 28 Anion Gap 18 BUN 59 H Creatinine 2.50 H Estim Creat Clear Calc 26.1 Estimated GFR 26 POC Glucose 119 H 189 H Random Glucose 185 H D Calcium 9.6 D Urine Color Urine Appearance Urine pH Ur Specific [place] Urine Protein Urine Glucose (UA) Urine Ketones Urine Blood Urine Nitrite Ur Leukocyte Esterase Urine RBC Urine WBC Ur Squamous Epith Cells Urine Bacteria 12/08/20 12/08/20 11:17 Unknown WBC 18.9 H RBC 4.42 L Hgb 11.0 L Hct 37.7 L MCV 85.3 MCH 24.9 L MCHC 29.2 L RDW 14.2 Plt Count 179 MPV 13.6 H Immature Gran % (Auto) 0.5 H Neut % (Auto) 87.6 H Lymph % (Auto) 6.6 L [place] % (Auto) 5.1 Eos % (Auto) 0.0 Baso % (Auto) 0.2 Lymph # (Auto) 1.2 [place] # (Auto) 1.0 Eos # (Auto) 0.0 Baso # (Auto) 0.0 Abs Immat Gran (auto) 0.09 H Absolute Neuts (auto) 16.6 H Absolute Nucleated RBC 0.000 Nucleated RBC % (auto) 0.0 Sodium Potassium Chloride Carbon Dioxide Anion Gap BUN Creatinine Estim Creat Clear Calc Estimated GFR POC Glucose 233 H Random Glucose Calcium Urine Color Urine Appearance Urine pH Ur Specific [place] Urine Protein Urine Glucose (UA) Urine Ketones Urine Blood Urine Nitrite Ur Leukocyte Esterase Urine RBC Urine WBC Ur Squamous Epith Cells Urine Bacteria Imaging Radiologist's impression: Impressions Chest X-Ray 12/07/20 21:18 IMPRESSION: 1. Changes bilaterally consistent with subsegmental pneumonitis, most likely increased in the left lower lobe. 2. There is persistent volume loss in the right hemithorax with elevation of the right hemidiaphragm. Progress Note: A&P Assessment and plan (1) Congestive heart failure: Status: Acute (2) Ischemic cardiomyopathy: Status: Acute Assessment and Plan: 70-year-old gentleman who is presenting with shortness of breath and sweating. He was mildly overloaded and was diuresed and has been transitioned back to oral medications. He had an aspiration event last night. I think his presentation was likely aspiration related to because he had sudden onset shortness of breath and sweating when he came to the emergency department. Is doing well right now. I think speech and Swallow should seem to help adjust his diet if required. On oral medications. Hemodynamically stable. We are signing off for now. Thank you for allowing me to participate in the care of your patient. Please feel free to contact me if you have any questions. Fall Risk Details Current Medications: Current Medications Acetaminophen (Acetaminophen 325 Mg Tablet) 650 mg PO Q6H PRN PRN Reason: Pain, Mild (Pain Scale 1-3) Last Admin: 12/08/20 11:30 Dose: 650 mg Documented by: Albuterol/Ipratropium (Albuterol/Iprat 2.5/0.5mg 3 Ml Ampul.Neb) 3 ml INHALE RQ4H PRN PRN Reason: Shortness of Breath Last Admin: 12/08/20 04:12 Dose: 3 ml Documented by: Atorvastatin Calcium (Atorvastatin Calcium 40 Mg Tablet) 40 mg PO DAILY [facility] Last Admin: 12/08/20 07:47 Dose: 40 mg Documented by: Bumetanide (Bumetanide 1 Mg Tablet) 2 mg PO BID@0800,1700 [facility]; Protocol Last Admin: 12/08/20 07:46 Dose: 2 mg Documented by: Carvedilol (Carvedilol 6.25 Mg Tablet) 6.25 mg PO BID [facility]; Protocol Last Admin: 12/08/20 07:47 Dose: 6.25 mg Documented by: Heparin Sodium (Porcine) (Heparin Sodium,Porcine 5,000 Unit/Ml Vial) 5,000 unit SUBCUT Q12H [facility] Last Admin: 12/08/20 11:23 Dose: 5,000 unit Documented by: Ampicillin Sodium/Sulbactam (Sodium 1.5 gm/ Sodium Chloride) 100 mls @ 200 mls/hr IV Q12H [facility] Last Infusion: 12/08/20 12:04 Dose: Infused Documented by: Insulin Glargine (Insulin Glargine,Hum.Rec.Anlog 100 Unit/Ml 10 Ml Vial) 30 unit SUBCUT BEDTIME [facility] Last Admin: 12/07/20 21:12 Dose: 30 unit Documented by: Insulin Human Lispro (Insulin Lispro 100 Unit/Ml 3 Ml Vial) 0 unit SUBCUT QIDACHS [facility]; Protocol Last Admin: 12/08/20 11:33 Dose: 4 unit Documented by: Levothyroxine Sodium (Levothyroxine Sodium 50 Mcg Tablet) 50 mcg PO DAILY@0600 [facility] Last Admin: 12/08/20 06:30 Dose: 50 mcg Documented by: Melatonin (Melatonin 3 Mg Tablet) 6 mg PO BEDTIME [facility] Last Admin: 12/07/20 21:04 Dose: 6 mg Documented by: Pharmacy Consult (Consult Rx Perform Med Rec) 1 each MISCELLANE ONCE PRN PRN Reason: Consult order Polyethylene Glycol (Polyethylene Glycol 3350 17 Gm Powd.Pack) 17 gm PO DAILY [facility] Last Admin: 12/08/20 07:51 Dose: 17 gm Documented by: Senna/Docusate Sodium (Sennosides/Docusate Sodium Tablet) 2 tab PO BID [facility] Last Admin: 12/08/20 13:11 Dose: 2 tab Documented by: Sodium Chloride (0.9 % Sodium Chloride Flush 3 Ml Syringe) [facility] Last Admin: 12/08/20 07:41 Dose: 3 ml Documented by: Tamsulosin HCl (Tamsulosin Hcl 0.4 Mg Capsule) 0.4 mg PO BEDTIME [facility] Last Admin: 12/07/20 21:05 Dose: 0.4 mg Documented by: Vitamin D (Cholecalciferol (Vitamin D3) 25 Mcg Tablet) 25 mcg PO DAILY [facility] Last Admin: 12/08/20 07:46 Dose: 25 mcg Documented by: Time Spent With Patient Time: Total time spent is greater than 50% in coordination of care (as documented) at patient's floor/unit and/or counseling patient: Time with patient: 15 - 24 minutes Progress Note: Quality Stroke Does the patient have a stroke diagnosis?: No Procedures Date of Service Date of Service: 12/08/20
[2020-12-08 16:56] LABS: Glucose, Whole Blood 367 mg/dL (60-115)
[2020-12-08 17:03] LABS: Glucose, Whole Blood 382 mg/dL (60-115)
[2020-12-08 20:34] LABS: Glucose, Whole Blood 259 mg/dL (60-115)
[2020-12-08] MEDS: Melatonin 3 MG TABLET 6 MG PO (20:54)
[2020-12-08] MEDS: Tamsulosin HCL 0.4 MG CAPSULE PO (20:54)
[2020-12-08] MEDS: Insulin Glargine,Hum.rec.anlog 100 UNIT/ML 10 ML VIAL 30 UNIT SUBCUT (21:04)
[2020-12-09] VITALS (8 sets, daily range): BP systolic 98–148; BP diastolic 52–91; PULSE 83–95; RESP 18–20; TEMP 36.4–36.9; O2SAT 94–98
[2020-12-09] MEDS: Levothyroxine Sodium 50 MCG TABLET PO (05:34)
[2020-12-09 07:01] LABS: Anion Gap 18 (12-20); Blood Urea Nitrogen 60 mg/dL (9-16); Calcium 9.2 mg/dL (8.4-10.2); Carbon Dioxide 26 mmol/L (22-29); Chloride 108 mmol/L (96-108); Estimated Glomerular Filt Rate 32; Glucose Random 76 mg/dL (60-115); Potassium 4.6 mmol/L (3.3-5.1); Sodium 147 mmol/L (135-145)
[2020-12-09 07:33] LABS: Hemoglobin 10.9 g/dl (14.0-18.0); Mean Corpuscular HGB Conc 30.3 g/dl (31.0-36.0); Mean Corpuscular Hemoglobin 25.2 pg (27.0-33.0); Mean Corpuscular Volume 83.3 fL (80-98); Mean Platelet Volume 12.6 fL (9.4-12.4); Platelet Count 188 X10*3/uL (160-400); Red Blood Count 4.32 X10*6/uL (4.60-5.80); Red Cell Distribution Width 14.2 % (11.0-16.0); White Blood Count 12.2 X10*3/uL (4.8-10.8)
[2020-12-09 07:42] LABS: Glucose, Whole Blood 108 mg/dL (60-115)
[2020-12-09] MEDS: Atorvastatin Calcium 40 MG TABLET PO (09:54)
[2020-12-09] MEDS: carvediloL 6.25 MG TABLET PO ×2 (09:54→20:46)
[2020-12-09] MEDS: Cholecalciferol (Vitamin D3) 25 MCG TABLET PO (09:55)
[2020-12-09] MEDS: Sennosides/Docusate Sodium TABLET 2 TAB PO (09:55)
[2020-12-09] MEDS: 0.9 % Sodium Chloride Flush 3 ML SYRINGE IVFLUSH ×3 (09:57→20:47)
[2020-12-09] MEDS: Heparin Sodium,Porcine 5,000 UNIT/ML VIAL 5000 UNIT SUBCUT ×2 (10:00→20:47)
[2020-12-09] MEDS: polyethylene glycoL 3350 17 GM POWD.PACK PO (10:01)
--- NOTE | 2020-12-09 10:58 | P.PNIM_ITS ---
Progress Note: A&P (1) Urinary retention: Status: Acute (2) CHF exacerbation: Status: Acute (3) Acute and chronic respiratory failure: Status: Acute (4) Aspiration pneumonia: Status: Acute (5) Hypotension: Status: Acute Assessment and Plan: This is a 70 yo M with multiple medical issues including HFrEF, CAD - s/p CABG, DM, CKD3/4, HTN, Memory loss, history of prostate procedure who presents to the hospital with sudden onset shortness of breath and wheezing with associated sweating. He was noted to have constipation and urinary retention while in the ED. There was also concern over chest pain and possible CHF exacerbation. He will be observed over night. Acute Respiratory failure with hypoxia due to aspiration pneumonia spiked temp overnight and required 15L by [place] tredning oxygen down started on Unasyn, f/u cultures speech rec chopped diet, nectar thick liquids Acute on chronic HFrEF exacerbation no exacerbation according to cardiology on home bumex low dose coreg @ 6.25mg bid (on 25mg BID at home) Hypotension resolved, bp improved Acute Urinary retention Burnett placed by urology -- d/w Dr. Barlow --> needs to d/c with catheter in place and f/u with him in the office in a few weeks start flomax Mild hypernatremia encourage oral hydration f/u with labs tomorrow DM Lantus + sliding scale diabetic diet CAD - s/p CABG continue baseline meds not on asa -- unclear why CKD3/4 monitor chronic, not due to infection Constipation miralax daily, add senna/colace combo Full Code DVT pptx, subcut. heparin Attending Dr. Cruz Subjective Subjective Date of Service: 12/09/20 Review of Systems Follow up acute resp failure with hypoxia Sitting up in the chair Physical Exam Vital Signs: Vital Signs: Last Vital Signs Temp 97.7 F 12/09/20 07:19 Pulse 92 12/09/20 09:54 Resp 18 12/09/20 07:19 BP 142/68 H 12/09/20 09:54 Pulse Ox 94 12/09/20 07:19 Body Mass Index 29.6 Appearing in no acute distress lung sounds are clear to auscultation heart regular rate rhythm, clear S1, S2 positive bowel sounds, abdomen is soft, nontender neuro patient is alert, no focal deficits Objective Data Current Medications Acetaminophen (Acetaminophen 325 Mg Tablet) 650 mg PO Q6H PRN PRN Reason: Pain, Mild (Pain Scale 1-3) Last Admin: 12/08/20 11:30 Dose: 650 mg Documented by: Albuterol/Ipratropium (Albuterol/Iprat 2.5/0.5mg 3 Ml Ampul.Neb) 3 ml INHALE RQ4H PRN PRN Reason: Shortness of Breath Last Admin: 12/08/20 04:12 Dose: 3 ml Documented by: Atorvastatin Calcium (Atorvastatin Calcium 40 Mg Tablet) 40 mg PO DAILY [facility] Last Admin: 12/09/20 09:54 Dose: 40 mg Documented by: Bumetanide (Bumetanide 1 Mg Tablet) 2 mg PO BID@0800,1700 [facility]; Protocol Last Admin: 12/08/20 07:46 Dose: 2 mg Documented by: Carvedilol (Carvedilol 6.25 Mg Tablet) 6.25 mg PO BID [facility]; Protocol Last Admin: 12/09/20 09:54 Dose: 6.25 mg Documented by: Heparin Sodium (Porcine) (Heparin Sodium,Porcine 5,000 Unit/Ml Vial) 5,000 unit SUBCUT Q12H [facility] Last Admin: 12/09/20 10:00 Dose: 5,000 unit Documented by: Ampicillin Sodium/Sulbactam (Sodium 1.5 gm/ Sodium Chloride) 100 mls @ 200 mls/hr IV Q12H [facility] Last Infusion: 12/09/20 00:20 Dose: Infused Documented by: Insulin Glargine (Insulin Glargine,Hum.Rec.Anlog 100 Unit/Ml 10 Ml Vial) 30 unit SUBCUT BEDTIME [facility] Last Admin: 12/08/20 21:04 Dose: 30 unit Documented by: Insulin Human Lispro (Insulin Lispro 100 Unit/Ml 3 Ml Vial) 0 unit SUBCUT QIDACHS [facility]; Protocol Last Admin: 12/09/20 08:45 Dose: Not Given Documented by: Levothyroxine Sodium (Levothyroxine Sodium 50 Mcg Tablet) 50 mcg PO DAILY@0600 [facility] Last Admin: 12/09/20 05:34 Dose: 50 mcg Documented by: Melatonin (Melatonin 3 Mg Tablet) 6 mg PO BEDTIME [facility] Last Admin: 12/08/20 20:54 Dose: 6 mg Documented by: Pharmacy Consult (Consult Rx Perform Med Rec) 1 each MISCELLANE ONCE PRN PRN Reason: Consult order Polyethylene Glycol (Polyethylene Glycol 3350 17 Gm Powd.Pack) 17 gm PO DAILY [facility] Last Admin: 12/09/20 10:01 Dose: 17 gm Documented by: Senna/Docusate Sodium (Sennosides/Docusate Sodium Tablet) 2 tab PO BID [facility] Last Admin: 12/09/20 09:55 Dose: 2 tab Documented by: Sodium Chloride (0.9 % Sodium Chloride Flush 3 Ml Syringe) 3 ml IVFLUSH QSHIFT [facility] Last Admin: 12/09/20 09:57 Dose: 3 ml Documented by: Tamsulosin HCl (Tamsulosin Hcl 0.4 Mg Capsule) 0.4 mg PO BEDTIME [facility] Last Admin: 12/08/20 20:54 Dose: 0.4 mg Documented by: Vitamin D (Cholecalciferol (Vitamin D3) 25 Mcg Tablet) 25 mcg PO DAILY [facility] Last Admin: 12/09/20 09:55 Dose: 25 mcg Documented by: Labs CBC & Chem 7: 12/09/20 07:12 12/09/20 05:56 Labs: Laboratory Results - last 24 hr 12/08/20 12/08/20 12/08/20 11:17 16:52 16:56 MCV MCH MCHC RDW Plt Count MPV Absolute Nucleated RBC Nucleated RBC % (auto) Anion Gap Estim Creat Clear Calc Estimated GFR POC Glucose 233 H 367 H* 382 H* Random Glucose Calcium 12/08/20 12/09/20 12/09/20 20:31 05:56 07:12 MCV 83.3 MCH 25.2 L MCHC 30.3 L RDW 14.2 Plt Count 188 MPV 12.6 H Absolute Nucleated RBC 0.000 Nucleated RBC % (auto) 0.0 Anion Gap 18 Estim Creat Clear Calc 32.0 Estimated GFR 32 POC Glucose 259 H Random Glucose 76 D Calcium 9.2 12/09/20 07:33 MCV MCH MCHC RDW Plt Count MPV Absolute Nucleated RBC Nucleated RBC % (auto) Anion Gap Estim Creat Clear Calc Estimated GFR POC Glucose 108 Random Glucose Calcium Microbiology Microbiology Results: Microbiology 12/07/20 20:43 Blood - Venous Blood Culture - Preliminary No growth after 24 hours. 12/07/20 20:43 Blood - Venous Blood Culture - Preliminary No growth after 24 hours. 12/05/20 02:23 Blood - Venous Blood Culture - Preliminary No growth after 48 hours. 12/05/20 02:23 Blood - Venous Blood Culture - Preliminary No growth after 48 hours. Quality Stroke Does the patient have a stroke diagnosis?: No VTE Prior VTE?: No VTE Risk Level:: Medical - moderate - high VTE Device Contraindication: N/A - Device Ordered VTE Drug Contraindication: N/A - Med Ordered
[2020-12-09 12:15] LABS: Glucose, Whole Blood 528 mg/dL (60-115)
[2020-12-09] MEDS: Insulin Lispro 100 UNIT/ML 3 ML VIAL SUBCUT ×5 (12:19→20:46)
[2020-12-09] MEDS: Ampicillin Sodium/Sulbactam Na 1.5 GM in 0.9 % Sodium Chloride 100 ML IV ×2 (13:01→23:39)
[2020-12-09 13:22] LABS: Glucose, Whole Blood 589 mg/dL (60-115)
[2020-12-09 14:39] LABS: Glucose, Whole Blood 449 mg/dL (60-115)
[2020-12-09 16:32] LABS: Glucose, Whole Blood 279 mg/dL (60-115)
[2020-12-09 19:54] LABS: Glucose, Whole Blood 188 mg/dL (60-115)
[2020-12-09] MEDS: Insulin Glargine,Hum.rec.anlog 100 UNIT/ML 10 ML VIAL 30 UNIT SUBCUT (20:46)
[2020-12-09] MEDS: Tamsulosin HCL 0.4 MG CAPSULE PO (20:47)
[2020-12-09] MEDS: Melatonin 3 MG TABLET 6 MG PO (20:47)
[2020-12-10 03:39] VITALS: BP 132/67; PULSE 84; RESP 18; TEMP 36.7; O2SAT 96
[2020-12-10] MEDS: Levothyroxine Sodium 50 MCG TABLET PO (05:46)
[2020-12-10 07:29] LABS: Glucose, Whole Blood 122 mg/dL (60-115)
[2020-12-10 07:58] VITALS: BP 142/77; PULSE 97; RESP 20; TEMP 37.1; O2SAT 95
[2020-12-10] MEDS: 0.9 % Sodium Chloride Flush 3 ML SYRINGE IVFLUSH (08:16)
[2020-12-10] MEDS: Sennosides/Docusate Sodium TABLET 2 TAB PO (08:23)
[2020-12-10] MEDS: Cholecalciferol (Vitamin D3) 25 MCG TABLET PO (08:23)
[2020-12-10] MEDS: Atorvastatin Calcium 40 MG TABLET PO (08:23)
[2020-12-10 08:24] VITALS: BP 142/77; PULSE 77
[2020-12-10] MEDS: carvediloL 6.25 MG TABLET PO (08:24)
[2020-12-10] MEDS: polyethylene glycoL 3350 17 GM POWD.PACK PO (08:24)
[2020-12-10] MEDS: Heparin Sodium,Porcine 5,000 UNIT/ML VIAL 5000 UNIT SUBCUT (08:24)
[2020-12-10 10:56] LABS: Glucose, Whole Blood 304 mg/dL (60-115)
[2020-12-10 11:09] VITALS: BP 158/77; PULSE 87; RESP 18; TEMP 37.1; O2SAT 96
[2020-12-10] MEDS: Ampicillin Sodium/Sulbactam Na 1.5 GM in 0.9 % Sodium Chloride 100 ML IV (11:26)
[2020-12-10] MEDS: Insulin Lispro 100 UNIT/ML 3 ML VIAL SUBCUT ×2 (11:26)
--- NOTE | 2020-12-10 11:51 | MHC.CM.PN ---
Per discussion with medical, Patient will be medically cleared for dc to home today, with services.CM spoke with Daughter/HCP/Samira @ [phone], who is aware of and in agreement with the dc plan(IMM addressed)and per her request, a referral was made to [facility], who is aware of today's dc.
--- NOTE | 2020-12-10 11:59 | MHC.CM.PN ---
IMM also addressed with Patient at bedside and original was given to him and a copy has been placed on the chart.
--- NOTE | 2020-12-10 12:03 | P.DS_ITS ---
DS: Providers Provider Date of Service: 12/10/20 Date of admission: 12/05/20 16:00 Primary care physician: Cecille Mccollum MD Consults: 12/05/20 09:26 Consult to Cardiology Routine Consulting Provider: [facility] [place] [facility] Reason for consultation: chest pain, history of cad / chf Attending physician on discharge: [facility] Discharging clinician: Shea Hernández DS: Diagnosis Discharge Diagnosis (1) Urinary retention: Status: Acute (2) CHF exacerbation: Status: Acute (3) Acute and chronic respiratory failure: Status: Acute (4) Aspiration pneumonia: Status: Acute (5) Hypotension: Status: Acute DS: Summary Hospital Course Hospital Course: HP as per admitting provider This is a 70-year-old male with a past medical history of ischemic cardiomyopathy with last echo (Jan 2020) showing ejection fraction of 35-40%, diabetes mellitus, memory loss (per daughter), CKD stage 3/4, hypertension, CAD status post CABG who is primarily Sami speaking. History is obtained with the help of ED provider who also speaks Sami as well as the patients daughter. Per the daughter, yesterday evening her father had sudden onset of trouble breathing and sweating.? It is unclear if he had chest pain at that time, however the family asked the patient if he wanted to go to the emergency room and so he was brought to the ED.? prior to this during the day the daughter reports that her father was at his baseline self.? Specifically, she denies any abdominal symptoms such as nausea or vomiting.? She does endorse that her father is chronically constipated.? She is unaware if he has had any urinary retention although she does report that he does have difficulty with urination and had a prostate procedure done in 2019. There are no reports of any fevers or chills.? There are no reports of any known sick contacts. Upon arrival to the emergency room, the patient was noted to have some wheezing and visible respiratory distress.? His workup was felt by the ED provider to suggest acute heart failure exacerbation and so he was given IV diuretics.? Patient also was noted to have urinary retention and required a Hardin catheter placement by Urology due to difficulty. Then I saw the patient in the emergency room, he was somewhat confused (this was later confirmed by the daughter that he does have a history of memory loss).? After speaking with him in his [place] language and with the help of the ED provider he was able to tell me that he had belly pain and trouble breathing which have improved after the placement of the Hardin catheter . This is a 70 yo M with multiple medical issues including HFrEF, CAD - s/p CABG, DM, CKD3/4, HTN, Memory loss, history of prostate procedure who presents to the hospital with sudden onset shortness of breath and wheezing with associated sweating. He was noted to have constipation and urinary retention while in the ED. There was also concern over chest pain and possible CHF exacerbation. He will be observed over night. Acute Respiratory failure with hypoxia due to aspiration pneumonia initially required 15 L of oxygen but trended down nicely unknown room air. He was started on Unasyn. Blood cultures after 48 hours negative. He was seen by speech therapy with recommendation for chopped diet and nectar thick liquids. He will be sent home with 7 more days of Augmentin and azithromycin. Acute on chronic HFrEF exacerbation . No overt exacerbation. He was treated with Bumex, same as his home dose. His Coreg was decreased to 6.25 twice daily. He was seen and evaluated by Cardiology while inpatient. He can follow-up with his extractions technologist as needed. Acute Urinary retention. Hardin placed by urology. Will be discharged with Hardin catheter and he will follow-up with Dr. Barlow in his office in a few weeks. He is also on Flomax at this point as well. Mild hypernatremia . Oral intake and hydration encouraged. Sodium ranged from 146-147. Will have follow-up labs next week cc to his primary care provider. Time Spent with Patient Time attestation: Total time spent providing and/or coordinating discharge services: Discharge coordination time: Greater than 30 minutes Quality: Stroke Does the patient have a stroke diagnosis?: No Physical Exam Vital Signs: Vital Signs: Last Vital Signs Temp 98.8 F 12/10/20 11:09 Pulse 87 12/10/20 11:09 Resp 18 12/10/20 11:09 BP 158/77 H 12/10/20 11:09 Pulse Ox 96 12/10/20 11:09 Body Mass Index 29.6 Appearing in no acute distress head is normocephalic atraumatic eyes pupils are PERRLA sclera is anicteric mouth throat mucous membranes are intact and moist neck is supple no lymphadenopathy, no JVD noted lung sounds are clear to auscultation heart regular rate rhythm, clear S1, S2 positive bowel sounds, abdomen is soft, nontender neuro patient is alert x3, no focal deficits, Language barrier, some confusion DS: Data Data Completed and Pending Labs on day of discharge: Laboratory Results - last 24 hr 12/09/20 12/09/20 12/09/20 12:11 13:17 14:36 POC Glucose 528 H* 589 H* 449 H* 12/09/20 12/09/20 12/10/20 16:15 19:45 07:09 POC Glucose 279 H 188 H 122 H 12/10/20 10:50 POC Glucose 304 H Preliminary micro results at discharge 12/07/20 20:43 Blood Culture - Preliminary Blood - Venous No growth after 48 hours. 12/07/20 20:43 Blood Culture - Preliminary Blood - Venous No growth after 48 hours. Discharge Plan Discharge Anticipated Discharge Date/Time: 12/10/20 11:43 Patient Disposition: Home Health Service Discharge Diagnosis: Acute respiratory failure with hypoxia secondary to aspiration pneumonia Acute on chronic heart failure with reduced ejection fraction Hypotension Urinary retention Hypernatremia Referrals: Cynthia [facility]COS [Outside] - 1 Week Cecille Mccollum MD [Primary Care Provider] - 1 Week Tavon Barlow MD [Physician] - 1 Week (home with haridn catheter ) Discharge Medications: New amoxicillin-pot clavulanate [Augmentin] 875-125 mg tablet 1 tab PO BID Qty: 14 RF: 0 azithromycin 250 mg tablet 250 mg PO DAILY 7 Days Qty: 7 RF: 0 Continued carvedilol 25 mg tablet 25 mg PO BID 90 Days Qty: 180 RF: 3 hydralazine 25 mg tablet 25 mg PO BID Qty: 180 RF: 1 (DME) pen needle, diabetic [BD Ultra-Fine Tamera Pen Needle] 32 gauge x 5/32 needle MISCELLANEOUS QID RF: 0 (DME) lancets [FreeStyle Lancets] 28 gauge misc 1 gauge MISCELLANEOUS TID RF: 0 lisinopril 40 mg tablet 40 mg PO DAILY RF: 0 Januvia 50 mg tablet 50 mg PO DAILY RF: 0 bumetanide 2 mg tablet 2 mg PO BID RF: 0 rx-vmg-UI-Yy-Pb-vqijcid-lutein 0.4-162-18 mg Tablet 1 tab PO DAILY RF: 0 levothyroxine 50 mcg tablet 1 tab PO DAILY RF: 0 insulin lispro 100 unit/mL insulin pen 5 - 7 unit subcut DAILY RF: 0 Lantus Solostar U-100 Insulin 100 unit/mL (3 mL) insulin pen 30 unit subcut BEDTIME RF: 0 atorvastatin 40 mg tablet 40 mg PO DAILY RF: 0 omeprazole 20 mg capsule,delayed release(DR/EC) 20 mg PO DAILY RF: 0 cholecalciferol (vitamin D3) 25 mcg (1,000 unit) capsule 25 mcg PO DAILY RF: 0 melatonin 5 mg capsule 5 mg PO BEDTIME RF: 0 Discharge Orders: Discharge Order (Routine); Ordered 12/10/20 Ordered By: Shea Hernández Diet: advance to usual diet Activity on Discharge: As tolerated Stand Alone Forms: Patient Portal Discharge page Other Ambulatory Orders: Basic Metabolic Panel (Routine) Timeframe: [id number] Facility: [facility] - Location: Laboratory Ordered By: Shea Hernández Care Plan Goals: complete antibiotic therapy for aspiration pneumonia Health Concerns: Acute respiratory failure with hypoxia secondary to aspiration pneumonia Acute on chronic heart failure with reduced ejection fraction Hypotension Urinary retention Hypernatremia Plan of Treatment: Take medications as prescribed Follow-up with your primary care provider as needed Please schedule follow-up appointment with the urologist Dr. Cain Montes De Oca for management of the Hardin catheter Assessment: see discharge summary
--- NOTE | 2020-12-10 15:09 | PM.DS ---
DS: Providers Provider Date of Service: 12/10/20 <Shea Hernández NP - Last Filed: 12/10/20 15:14> Date of admission: 12/05/20 16:00 <Shea Hernández NP - Last Filed: 12/10/20 15:14> Primary care physician: Cecille Mccollum MD <Shea Hernández NP - Last Filed: 12/10/20 15:14> Consults: 12/05/20 09:26 Consult to Cardiology [place]ine [place] [facility] [facility] Reason for consultation: chest pain, history of cad / chf <Shea Hernández NP - Last Filed: 12/10/20 15:14> Attending physician on discharge: Donavon Cruz <Shea Hernández NP - Last Filed: 12/10/20 15:14> Discharging clinician: Shea Hernández <Shea Hernández NP - Last Filed: 12/10/20 15:14> DS: Diagnosis Discharge Diagnosis (1) Urinary retention: Status: Acute <Shea Hernández NP - Last Filed: 12/10/20 15:14> (2) CHF exacerbation: Status: Resolved <Shea Hernández NP - Last Filed: 12/10/20 15:14> (3) Acute and chronic respiratory failure: Status: Resolved <Shea Hernández NP - Last Filed: 12/10/20 15:14> (4) Aspiration pneumonia: Status: Acute <Shea Hernández NP - Last Filed: 12/10/20 15:14> (5) Hypotension: Status: Resolved <Shea Hernández NP - Last Filed: 12/10/20 15:14> DS: Summary Hospital Course Hospital Course: HP as per admitting provider This is a 70-year-old male with a past medical history of ischemic cardiomyopathy with last echo (Jan 2020) showing ejection fraction of 35-40%, diabetes mellitus, memory loss (per daughter), CKD stage 3/4, hypertension, CAD status post CABG who is primarily Polish speaking. History is obtained with the help of ED provider who also speaks Polish as well as the patients daughter. Per the daughter, yesterday evening her father had sudden onset of trouble breathing and sweating.? It is unclear if he had chest pain at that time, however the family asked the patient if he wanted to go to the emergency room and so he was brought to the ED.? prior to this during the day the daughter reports that her father was at his baseline self.? Specifically, she denies any abdominal symptoms such as nausea or vomiting.? She does endorse that her father is chronically constipated.? She is unaware if he has had any urinary retention although she does report that he does have difficulty with urination and had a prostate procedure done in 2019. There are no reports of any fevers or chills.? There are no reports of any known sick contacts. Upon arrival to the emergency room, the patient was noted to have some wheezing and visible respiratory distress.? His workup was felt by the ED provider to suggest acute heart failure exacerbation and so he was given IV diuretics.? Patient also was noted to have urinary retention and required a Hardin catheter placement by Urology due to difficulty. Then I saw the patient in the emergency room, he was somewhat confused (this was later confirmed by the daughter that he does have a history of memory loss).? After speaking with him in his chitina language and with the help of the ED provider he was able to tell me that he had belly pain and trouble breathing which have improved after the placement of the Hardin catheter . This is a 70 yo M with multiple medical issues including HFrEF, CAD - s/p CABG, DM, CKD3/4, HTN, Memory loss, history of prostate procedure who presents to the hospital with sudden onset shortness of breath and wheezing with associated sweating. He was noted to have constipation and urinary retention while in the ED. There was also concern over chest pain and possible CHF exacerbation. He will be observed over night. Acute Respiratory failure with hypoxia due to aspiration pneumonia initially required 15 L of oxygen but trended down nicely unknown room air. He was started on Unasyn. Blood cultures after 48 hours negative. He was seen by speech therapy with recommendation for chopped diet and nectar thick liquids. He will be sent home with 7 more days of Augmentin and azithromycin. Acute on chronic HFrEF exacerbation . No overt exacerbation. He was treated with Bumex, same as his home dose. His Coreg was decreased to 6.25 twice daily. He was seen and evaluated by Cardiology while inpatient. 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 Acute Urinary retention. Hardin placed by urology. Will be discharged with Hardin catheter and he will follow-up with Dr. Barlow in his office in a few weeks. He is also on Flomax at this point as well. Mild hypernatremia . Oral intake and hydration encouraged. Sodium ranged from 146-147. Will have follow-up labs next week cc to his primary care provider. <Shea Hernández NP - Last Filed: 12/10/20 15:14> Time Spent with Patient Time attestation: Total time spent providing and/or coordinating discharge services: <Shea Hernández NP - Last Filed: 12/10/20 15:14> Discharge coordination time: Greater than 30 minutes <Shea Hernández NP - Last Filed: 12/10/20 15:14> Quality: Stroke Does the patient have a stroke diagnosis?: No <Shea Hernández NP - Last Filed: 12/10/20 15:14> Physical Exam Vital Signs: Vital Signs: Last Vital Signs Temp 98.8 F 12/10/20 11:09 Pulse 87 12/10/20 11:09 Resp 18 12/10/20 11:09 BP 158/77 H 12/10/20 11:09 Pulse Ox 96 12/10/20 11:09 Body Mass Index 29.6 <Shea Hernández NP - Last Filed: 12/10/20 15:14> Appearing in no acute distress head is normocephalic atraumatic eyes pupils are PERRLA sclera is anicteric mouth throat mucous membranes are intact and moist neck is supple no lymphadenopathy, no JVD noted lung sounds are clear to auscultation heart regular rate rhythm, clear S1, S2 positive bowel sounds, abdomen is soft, nontender neuro patient is alert , somewhat confused, language barrier <Shea Hernández NP - Last Filed: 12/10/20 15:14> DS: Data Data Completed and Pending Labs on day of discharge: Laboratory Results - last 24 hr 12/09/20 12/09/20 12/10/20 16:15 19:45 07:09 POC Glucose 279 H 188 H 122 H 12/10/20 10:50 POC Glucose 304 H Preliminary micro results at discharge 12/07/20 20:43 Blood Culture - Preliminary Blood - Venous No growth after 48 hours. 12/07/20 20:43 Blood Culture - Preliminary Blood - Venous No growth after 48 hours. <Shea Hernández NP - Last Filed: 12/10/20 15:14> Discharge Plan Discharge Anticipated Discharge Date/Time: 12/10/20 11:43 <Shea Hernández NP - Last Filed: 12/10/20 15:14> Patient Disposition: Home Health Service <Shea Hernández NP - Last Filed: 12/10/20 15:14> Discharge Diagnosis: Acute respiratory failure with hypoxia secondary to aspiration pneumonia Acute on chronic heart failure with reduced ejection fraction Hypotension Urinary retention Hypernatremia <Shea Hernández NP - Last Filed: 12/10/20 15:14> Acute respiratory failure with hypoxia secondary to aspiration pneumonia Acute on chronic heart failure with reduced ejection fraction Hypotension Urinary retention Hypernatremia <Donavon Cruz MD - Last Filed: 12/22/20 15:47> Referrals: Cynthia [facility]OS [Outside] - 1 Week Cecille Mccollum MD [Primary Care Provider] - 1 Week Tavon Barlow MD [Physician] - 1 Week (home with hardin catheter ) <Shea Hernández NP - Last Filed: 12/10/20 15:14> Discharge Medications: New amoxicillin-pot clavulanate [Augmentin] 875-125 mg tablet 1 tab PO BID Qty: 14 RF: 0 azithromycin 250 mg tablet 250 mg PO DAILY 7 Days Qty: 7 RF: 0 Continued carvedilol 25 mg tablet 25 mg PO BID 90 Days Qty: 180 RF: 3 hydralazine 25 mg tablet 25 mg PO BID Qty: 180 RF: 1 (DME) pen needle, diabetic [BD Ultra-Fine Tamera Pen Needle] 32 gauge x 5/32 needle MISCELLANEOUS QID RF: 0 (DME) lancets [FreeStyle Lancets] 28 gauge misc 1 gauge MISCELLANEOUS TID RF: 0 lisinopril 40 mg tablet 40 mg PO DAILY RF: 0 Januvia 50 mg tablet 50 mg PO DAILY RF: 0 bumetanide 2 mg tablet 2 mg PO BID RF: 0 levothyroxine 50 mcg tablet 1 tab PO DAILY RF: 0 atorvastatin 40 mg tablet 40 mg PO DAILY RF: 0 omeprazole 20 mg capsule,delayed release(DR/EC) 20 mg PO BID RF: 0 melatonin 5 mg capsule 5 mg PO BEDTIME RF: 0 No Action Lantus Solostar U-100 Insulin 100 unit/mL (3 mL) insulin pen 35 unit subcut BEDTIME RF: 0 cholecalciferol (vitamin D3) [Vitamin D3] 25 mcg (1,000 unit) Tablet 25 mcg PO DAILY RF: 0 <Shea Hernández NP - Last Filed: 12/10/20 15:14> Discharge Orders: Discharge Order (Routine); Ordered 12/10/20 Ordered By: Shea Hernández <Shea Hernández NP - Last Filed: 12/10/20 15:14> Diet: advance to usual diet <Shea Hernández NP - Last Filed: 12/10/20 15:14> advance to usual diet <Donavon Cruz MD - Last Filed: 12/22/20 15:47> Activity on Discharge: As tolerated <Shea Hernández NP - Last Filed: 12/10/20 15:14> As tolerated <Donavon Cruz MD - Last Filed: 12/22/20 15:47> Stand Alone Forms: Patient Portal Discharge page <Shea Hernández NP - Last Filed: 12/10/20 15:14> Other Ambulatory Orders: Basic Metabolic Panel (Routine) Timeframe: 20201214 Facility: [facility] - Location: Laboratory Ordered By: Shea Hernández <Shea Hernández NP - Last Filed: 12/10/20 15:14> Care Plan Goals: complete antibiotic therapy for aspiration pneumonia <Shea Hernández NP - Last Filed: 12/10/20 15:14> Health Concerns: Acute respiratory failure with hypoxia secondary to aspiration pneumonia Acute on chronic heart failure with reduced ejection fraction Hypotension Urinary retention Hypernatremia <Shea Hernández NP - Last Filed: 12/10/20 15:14> Plan of Treatment: Take medications as prescribed Follow-up with your primary care provider as needed Please schedule follow-up appointment with the urologist Dr. Cain Montes De Oca for management of the Hardin catheter <Shea Hernández NP - Last Filed: 12/10/20 15:14> Assessment: see discharge summary I saw patient and discssed finding and plan with ORACLE SOA DEVELOPER and I agree witht the above <Shea Hernández NP - Last Filed: 12/10/20 15:14> Discharge Date/Time: 12/10/20 15:42 <Shea Hernández NP - Last Filed: 12/10/20 15:14>
== END 2020-12-10 15:42 | disposition home health service (06) | DRG 291 ==
LOC: HO.ED 06:35 → HO.EDOVER 09:48 → HO.ISO 10:27 → HO.IMC 12-07 16:15 → HO.ISO 12-07 16:15
PROVIDERS: Hospitalist; Physician Assistant Medical; Admitting Provider Family Medicine; Emergency Provider Student in an Organized Health Care Education/Training Program; PCP Internal Medicine; Visit Provider Nurse Practitioner Acute Care
DX: I13.0 Hypertensive heart and chronic kidney disease with heart failure and stage 1 through stage 4 chronic kidney disease, or unspecified chronic kidney disease (principal); I50.23 Acute on chronic systolic (congestive) heart failure; J69.0 Pneumonitis due to inhalation of food and vomit; N17.9 Acute kidney failure, unspecified; N18.4 Chronic kidney disease, stage 4 (severe); E87.0 Hyperosmolality and hypernatremia; I25.10 Atherosclerotic heart disease of native coronary artery without angina pectoris; I25.5 Ischemic cardiomyopathy; E11.22 Type 2 diabetes mellitus with diabetic chronic kidney disease; I95.9 Hypotension, unspecified; I25.2 Old myocardial infarction; E11.65 Type 2 diabetes mellitus with hyperglycemia; K59.00 Constipation, unspecified; R33.9 Retention of urine, unspecified; Z20.822 Contact with and (suspected) exposure to COVID-19; Z95.1 Presence of aortocoronary bypass graft; Z79.4 Long term (current) use of insulin; Z79.890 Hormone replacement therapy; Z79.899 Other long term (current) drug therapy
CPT/HCPCS: 36415; 71045; 71250; 74176; 80048; 80053; 81001; 82009; 82803; 82947; 83605; 83880; 84484; 85025; 85027; 87040; 87635; 92610; 93005; 93306; 96365; 96375; 99285; C1758; J0295; J0696; J1940; J2270; Q9957

== ENCOUNTER 2020-12-12 15:36 | Emergency (ER) | payer OTHER, SELFPAY ==
[2020-12-12 17:09] VITALS: BP 131/73; PULSE 84; RESP 18; TEMP 36.6; O2SAT 98; BMI 29.6
--- NOTE | 2020-12-12 17:45 | ED.GENADULT ---
HPI - General Adult General Chief complaint: General Medical Stated complaint: requesting cath removal Time Seen by Provider: 12/12/20 17:16 Source: patient Mode of arrival: ambulatory Limitations: no limitations History of Present Illness HPI narrative: Patient presents to the ED for catheter removal. Patient requesting his Burnett catheter to be removed. Patient is annoyed with catheter as per family. Family states no other complaints. Related Data Home Medications Medication Instructions Recorded Confirmed lancets 28 gauge (FreeStyle 02/13/20 09/06/20 Lancets) pen needle, diabetic 32 gauge x 02/13/20 09/06/2032 (BD Ultra-Fine Tamera Pen Needle) atorvastatin 40 mg tablet 40 mg PO DAILY 06/06/20 12/05/20 cholecalciferol (vitamin D3) 25 25 mcg PO DAILY 06/06/20 12/05/20 mcg (1,000 unit) capsule omeprazole 20 mg capsule,delayed 20 mg PO DAILY 06/06/20 12/05/20 release melatonin 5 mg capsule 5 mg PO BEDTIME cap 07/18/20 12/05/20 bumetanide 2 mg tablet 2 mg PO BID 11/08/20 12/05/20 lisinopril 40 mg tablet 40 mg PO DAILY 11/08/20 12/05/20 [id number] 0.4 mg-calcium 162 1 tab PO DAILY 11/08/20 12/05/20 mg-iron 18 og-knxhjcj-johsjp tablet sitagliptin 50 mg tablet (Januvia) 50 mg PO DAILY 11/08/20 12/05/20 insulin glargine 100 unit/mL (3 30 unit SUBCUT BEDTIME 12/05/20 12/05/20 mL) subcutaneous pen (Lantus Solostar U-100 Insulin) insulin lispro 100 unit/mL 5 - 7 unit SUBCUT DAILY 12/05/20 12/05/20 subcutaneous pen levothyroxine 50 mcg tablet 1 tab PO DAILY 12/05/20 12/05/20 Previous Rx's Medication Instructions Recorded carvedilol 25 mg tablet 25 mg PO BID 90 Days #180 tab 01/05/20 hydralazine 25 mg tablet 25 mg PO BID #180 tab 10/13/20 amoxicillin 875 mg-potassium 1 tab PO BID #14 tab 12/10/20 clavulanate 125 mg tablet (Augmentin) azithromycin 250 mg tablet 250 mg PO DAILY 7 Days #7 tab 12/10/20 Allergies Allergy/AdvReac Type Severity Reaction Status Date / Time No Known Allergies Allergy Verified 06/06/20 14:39 [No Known Allergies*] Review of Systems Constitutional: Constitutional: Reports as per HPI and Reports no additional constitutional complaints Eyes: Eyes: Reports as per HPI and Reports no additional eye complaints ENT: Reports system reviewed and no additional complaints, except as documented and Reports as per HPI Cardiovascular: Cardiovascular: Reports as per HPI and Reports no additional cardiovascular complaints Respiratory: Respiratory: Reports as per HPI and Reports no additional respiratory complaints Gastrointestinal: Gastrointestinal: Reports as per HPI and Reports no additional gastrointestinal complaints Genitourinary: Genitourinary: Reports no additional male genitourinary complaints and Reports as per HPI Comments: Burnett catheter removed Neurologic: Reports system reviewed and no additional complaints, except as documented and Reports as per HPI Psychiatric: Psychiatric: Reports no additional psychiatric complaints and Reports as per HPI [facility] Past Medical History Medical History Acute kidney injury superimposed on CKD CAD (coronary artery disease) Chronic kidney disease (CKD) Chronic kidney failure Congestive heart failure Diabetes mellitus Heart failure with reduced ejection fraction Hypertension Ischemic cardiomyopathy Surgical History Hx of CABG Social History Social History Household Members: Unknown / Unable to assess Housing: Unknown / Unable to assess Do you presently have visiting nurse or other home services: No Alcohol intake: never Patient Tobacco Use Status: Never used Tobacco Second Hand Smoke Exposure: No Advance Directives: Yes Advance Directives on File: Yes Advance Directives Date on File: 12/05/20 service: No Current occupational status: retired Physical Exam Vital Signs: Vital Signs: Last Vital Signs Temp 98 F 12/12/20 17:09 Pulse 88 12/12/20 23:50 Resp 20 12/12/20 23:50 BP 148/81 H 12/12/20 23:50 Pulse Ox 93 12/12/20 23:50 Body Mass Index 29.6 Const: General: cooperative, healthy appearing, comfortable, no acute distress, well developed, alert, awake and Physically active Orientation/consciousness: patient oriented x3 HENMT: Head: Yes normal to inspection, Yes No palpable skull fracture present, Yes normocephalic, Yes atraumatic and No abrasion Eyes: General: appearance normal, both eyes and all related structures Neck: Neck: Yes normal visual inspection, Yes full ROM, Yes no lymphadenopathy, Yes no meningeal signs, Yes trachea midline, Yes supple and No tender Chest: Chest palpation & inspection: normal inspection of the chest and normal palpation of entire chest wall Resp: Effort & Inspection: normal respiratory effort and able to speak in complete sentences Auscultation: clear to auscultation bilaterally Cardio: Jugular venous distension: no JVD Heart sounds: S1 normal heart sound present and S2 normal heart sound present GI: Inspection: Yes normal to inspection and No abdominal wall ecchymosis Palpation (GI): Soft to palpation, not firm, nontender, no guarding and not rigid : General: No CVA tenderness and Yes no CVA tenderness Back/Spine/Pelvis: Back: no CVA tenderness, No CVA tenderness and No back tenderness Skin: General skin exam: no rashes or lesions noted and elasticity normal Neuro: General: patient oriented x3, gait normal, no meningeal signs and CN's II-XI intact bilaterally Cranial nerves: Yes CN's II-XII intact bilaterally Extrem: General: Yes normal to inspection and Yes full ROM Psych: Appearance: grossly normal, well kempt and not disheveled Course Course Course Narrative: Dr. Barlow was called. Reevaluation(s) Reevaluation #1: Dr. Barlow of urology came and evaluated patient and inform family members that Burnett should not be removed. He states Burnett should be placed for least 4 weeks due to severe stricture. He removed Burnett bag placed and cap. Told family patient could remove cap and drained fully every 4 hours. Once again he did not recommend Burnett being removed. Time: 18:00 Reevaluation #2: Patient family states they were not able to care for him and would like for him to be placed in short-term rehab. Patient will have basic labs. senior finance manager Shea will speak to patient. Daughter's is Evelio ). Patient has dementai and daughter is the health proxy. Time: 18:16 Reevaluation #3: Labs are baseline. Patient waiting for case management and physical therapy in the morning. Time: 00:15 Medical Decision Making MDM Narrative Medical decision making narrative: Case management Lab Data Result diagrams: 12/12/20 18:59 12/12/20 18:59 Labs: Lab Results 12/12/20 12/12/20 Range/Units 18:59 18:59 WBC 13.9 H (4.8-10.8) X10*3/uL RBC 4.12 L (4.60-5.80) X10*6/uL Hgb 10.3 L (14.0-18.0) g/dl Hct 34.3 L (42-52) % MCV 83.3 (80-98) fL MCH 25.0 L (27.0-33.0) pg MCHC 30.0 L (31.0-36.0) g/dl RDW 14.1 (11.0-16.0) % Plt Count 196 (160-400) X10*3/uL MPV 11.8 (9.4-12.4) fL Immature Gran % (Auto) 0.4 (0.0-0.4) % Neut % (Auto) 72.9 (45-73) % Lymph % (Auto) 14.3 L (20-40) % [place] % (Auto) 7.5 (2-11) % Eos % (Auto) 4.7 H (0-4) % Baso % (Auto) 0.2 (0-2) % Lymph # (Auto) 2.0 (1.2-4.9) X10*3/uL [place] # (Auto) 1.0 (0.1-1.2) X10*3/uL Eos # (Auto) 0.7 H (0.0-0.4) X10*3/uL Baso # (Auto) 0.0 (0.0-0.2) X10*3/uL Abs Immat Gran (auto) 0.06 H (0.00-0.03) X10*3/uL Absolute Neuts (auto) 10.1 H (2.0-8.3) X10*3/uL Absolute Nucleated RBC 0.000 (0.0-0.012) X10*3/uL Nucleated RBC % (auto) 0.0 (0.0-0.2) /100WBC Sodium 140 (135-145) mmol/L Potassium 5.1 (3.3-5.1) mmol/L Chloride 103 (96-108) mmol/L Carbon Dioxide 28 (22-29) mmol/L Anion Gap 14 (12-20) BUN 47 H (9-16) mg/dL Creatinine 2.17 H (0.5-1.4) mg/dL Estim Creat Clear Calc 30.1 Estimated GFR 30 Random Glucose 293 H D (60-115) mg/dL Calcium 8.9 (8.4-10.2) mg/dL Total Bilirubin 0.4 (0.0-1.0) mg/dL AST 21 (5-37) U/L ALT 24 (0-40) U/L Alkaline Phosphatase 60 (39-117) U/L Total Protein 6.7 (6.5-8.0) g/dL Albumin 3.6 (3.5-5.0) g/dL Discharge Plan Discharge Clinical Impression: Burnett catheter in place Prescriptions: No Action carvedilol 25 mg tablet 25 mg PO BID 90 Days Qty: 180 RF: 3 hydralazine 25 mg tablet 25 mg PO BID Qty: 180 RF: 1 (DME) pen needle, diabetic [BD Ultra-Fine Tamera Pen Needle] 32 gauge x 5/32 needle MISCELLANEOUS QID RF: 0 (DME) lancets [FreeStyle Lancets] 28 gauge misc 1 gauge MISCELLANEOUS TID RF: 0 lisinopril 40 mg tablet 40 mg PO DAILY RF: 0 Januvia 50 mg tablet 50 mg PO DAILY RF: 0 bumetanide 2 mg tablet 2 mg PO BID RF: 0 [id number]-Bk-Vz-hacezxj-lutein 0.4-162-18 mg Tablet 1 tab PO DAILY RF: 0 levothyroxine 50 mcg tablet 1 tab PO DAILY RF: 0 insulin lispro 100 unit/mL insulin pen 5 - 7 unit subcut DAILY RF: 0 Lantus Solostar U-100 Insulin 100 unit/mL (3 mL) insulin pen 30 unit subcut BEDTIME RF: 0 amoxicillin-pot clavulanate [Augmentin] 875-125 mg tablet 1 tab PO BID Qty: 14 RF: 0 azithromycin 250 mg tablet 250 mg PO DAILY 7 Days Qty: 7 RF: 0 atorvastatin 40 mg tablet 40 mg PO DAILY RF: 0 omeprazole 20 mg capsule,delayed release(DR/EC) 20 mg PO DAILY RF: 0 cholecalciferol (vitamin D3) 25 mcg (1,000 unit) capsule 25 mcg PO DAILY RF: 0 melatonin 5 mg capsule 5 mg PO BEDTIME RF: 0
--- NOTE | 2020-12-12 18:17 | PM.UROCN ---
History of Present Illness Consult details Consult date: 12/05/20 Narrative: Asked to see patient Unable to place Burnett catheter Elevated creatinine with acute on chronic renal insult Patient is Maltese speaker. Some translation provided by ER physician. Does not describe any history of prostate issues Apparently may have had retention in the past. Unable to place Burnett catheter or passed wire into bladder Cystoscopy performed at bedside. Clean technique used Flexible cystoscopy performed. Small opening noted with stricture. Sensor guidewire passed. Urethral dilator set used to dilate up to 18 [place]. Eighteen [place]ican Burnett catheter [place] tip placed. Catheter to remain for 1 month and to be removed in office. Review of Systems Constitutional: Constitutional: Denies chills and Denies fever(s) Cardiovascular: Cardiovascular: Reports no additional cardiovascular complaints and Denies syncope Respiratory: Respiratory: Denies cough Gastrointestinal: Gastrointestinal: Denies abdominal pain and Denies heartburn Genitourinary: Genitourinary: Reports as per HPI and Denies change in libido Neurologic: Denies syncope Psychiatric: Psychiatric: Denies change in libido Endocrine: Endocrine: Denies change in libido [facility] Past Medical History Medical History Acute kidney injury superimposed on CKD CAD (coronary artery disease) Chronic kidney disease (CKD) Chronic kidney failure Congestive heart failure Diabetes mellitus Heart failure with reduced ejection fraction Hypertension Ischemic cardiomyopathy Surgical History Surgical History Hx of CABG Social History Social History Household Members: Unknown / Unable to assess Housing: Unknown / Unable to assess Do you presently have visiting nurse or other home services: No Alcohol intake: never Patient Tobacco Use Status: Never used Tobacco Second Hand Smoke Exposure: No Advance Directives: Yes Advance Directives on File: Yes Advance Directives Date on File: 12/05/20 service: No Current occupational status: retired Meds Allergies Allergy/AdvReac Type Severity Reaction Status Date / Time No Known Allergies Allergy Verified 06/06/20 14:39 [No Known Allergies*] Home Medications Medication Instructions Recorded Confirmed Last Taken Type lancets 28 gauge (FreeStyle 02/13/20 09/06/20 Unknown History Lancets) pen needle, diabetic 32 gauge x 02/13/20 09/06/20 Unknown History (BD Ultra-Fine Tamera Pen Needle) atorvastatin 40 mg tablet 40 mg PO DAILY 06/06/20 12/05/20 11/08/20 History cholecalciferol (vitamin D3) 25 25 mcg PO DAILY 06/06/20 12/05/20 11/08/20 History mcg (1,000 unit) capsule omeprazole 20 mg capsule,delayed 20 mg PO DAILY 06/06/20 12/05/20 11/08/20 History release melatonin 5 mg capsule 5 mg PO BEDTIME cap 07/18/20 12/05/20 11/08/20 History bumetanide 2 mg tablet 2 mg PO BID 11/08/20 12/05/20 11/08/20 History lisinopril 40 mg tablet 40 mg PO DAILY 11/08/20 12/05/20 11/08/20 History sumrbfnl-lkx-XJ 0.4 mg-calcium 162 1 tab PO DAILY 11/08/20 12/05/20 11/08/20 History mg-iron 18 be-qzscvrq-ylyrtj tablet sitagliptin 50 mg tablet (Januvia) 50 mg PO DAILY 11/08/20 12/05/20 11/08/20 History insulin glargine 100 unit/mL (3 30 unit SUBCUT BEDTIME 12/05/20 12/05/20 Unknown History mL) subcutaneous pen (Lantus Solostar U-100 Insulin) insulin lispro 100 unit/mL 5 - 7 unit SUBCUT DAILY 12/05/20 12/05/20 Unknown History subcutaneous pen levothyroxine 50 mcg tablet 1 tab PO DAILY 12/05/20 12/05/20 Unknown History Physical Exam Vital Signs: Vital Signs: Last Vital Signs Temp 98 F 12/12/20 17:09 Pulse 84 12/12/20 17:09 Resp 18 12/12/20 17:09 BP 131/73 12/12/20 17:09 Pulse Ox 98 12/12/20 17:09 Body Mass Index 29.6 Const: General: cooperative, healthy appearing, comfortable and no acute distress Orientation/consciousness: patient oriented x3 HENMT: Face and sinus: Yes normal facial exam Mouth: moist mucous membranes Neck: Neck: Yes normal visual inspection, Yes full ROM and Yes trachea midline Chest: Chest palpation & inspection: normal inspection of the chest Resp: Effort & Inspection: normal respiratory effort, able to speak in complete sentences and no respiratory distress GI: Inspection: Yes normal to inspection Back/Spine/Pelvis: Cervical Spine: normal cervical lordosis Thoracic/Lumbar Spine: thoracic and lumbar spine normal to inspection Skin: General skin exam: no rashes or lesions noted Neuro: General: patient oriented x3, gait normal, tone normal and moves all extremities Extrem: General: Yes normal to inspection and Yes capillary refill normal Results Labs Labs: All other labs normal. Assessment and Plan (1) Bladder neck contracture: Status: Acute Bedside cystoscopy with dilatation Catheter should stay for 4 weeks Procedures Date of Service Date of Service: 12/05/20 Catheter Insertion (Urinary) Date of insertion: 12/05/20 Replacement of catheter present on admission: No Reason for placing: Acute urinary retention Size (Puerto Rican): 18 Catheter balloon size (mL): 10 Results: consulted Additional comments: Flexible cystoscopy performed a bedside with urethral dilatation. CPT 67709
--- NOTE | 2020-12-12 18:23 | PM.UROCN ---
History of Present Illness Consult details Consult date: 12/12/20 Narrative: Patient attending emergency room and complaining about Burnett catheter Family stating they are unable to care for him Patient reviewed. Burnett catheter cap was placed on catheter. Catheter had been stretched into prostatic fossa with bag. Bladder should be emptied every 4 hours Medical recommendation is that catheter should remain given urethral stricture Review of Systems Constitutional: Constitutional: Denies chills and Denies fever(s) Cardiovascular: Cardiovascular: Reports no additional cardiovascular complaints and Denies syncope Respiratory: Respiratory: Denies cough Gastrointestinal: Gastrointestinal: Denies abdominal pain and Denies heartburn Genitourinary: Genitourinary: Reports as per HPI and Denies change in libido Neurologic: Denies syncope Psychiatric: Psychiatric: Denies change in libido Endocrine: Endocrine: Denies change in libido [facility] Past Medical History Medical History Acute kidney injury superimposed on CKD CAD (coronary artery disease) Chronic kidney disease (CKD) Chronic kidney failure Congestive heart failure Diabetes mellitus Heart failure with reduced ejection fraction Hypertension Ischemic cardiomyopathy Surgical History Surgical History Hx of CABG Social History Social History Household Members: Unknown / Unable to assess Housing: Unknown / Unable to assess Do you presently have visiting nurse or other home services: No Alcohol intake: never Patient Tobacco Use Status: Never used Tobacco Second Hand Smoke Exposure: No Advance Directives: Yes Advance Directives on File: Yes Advance Directives Date on File: 12/05/20 service: No Current occupational status: retired Meds Allergies Allergy/AdvReac Type Severity Reaction Status Date / Time No Known Allergies Allergy Verified 06/06/20 14:39 [No Known Allergies*] Home Medications Medication Instructions Recorded Confirmed Last Taken Type lancets 28 gauge (FreeStyle 02/13/20 09/06/20 Unknown History Lancets) pen needle, diabetic 32 gauge x 02/13/20 09/06/20 Unknown History (BD Ultra-Fine Tamera Pen Needle) atorvastatin 40 mg tablet 40 mg PO DAILY 06/06/20 12/05/20 11/08/20 History cholecalciferol (vitamin D3) 25 25 mcg PO DAILY 06/06/20 12/05/20 11/08/20 History mcg (1,000 unit) capsule omeprazole 20 mg capsule,delayed 20 mg PO DAILY 06/06/20 12/05/20 11/08/20 History release melatonin 5 mg capsule 5 mg PO BEDTIME cap 07/18/20 12/05/20 11/08/20 History bumetanide 2 mg tablet 2 mg PO BID 11/08/20 12/05/20 11/08/20 History lisinopril 40 mg tablet 40 mg PO DAILY 11/08/20 12/05/20 11/08/20 History icsdibax-esk-CR 0.4 mg-calcium 162 1 tab PO DAILY 11/08/20 12/05/20 11/08/20 History mg-iron 18 om-agkixyg-qjivfl tablet sitagliptin 50 mg tablet (Januvia) 50 mg PO DAILY 11/08/20 12/05/20 11/08/20 History insulin glargine 100 unit/mL (3 30 unit SUBCUT BEDTIME 12/05/20 12/05/20 Unknown History mL) subcutaneous pen (Lantus Solostar U-100 Insulin) insulin lispro 100 unit/mL 5 - 7 unit SUBCUT DAILY 12/05/20 12/05/20 Unknown History subcutaneous pen levothyroxine 50 mcg tablet 1 tab PO DAILY 12/05/20 12/05/20 Unknown History Physical Exam Vital Signs: Vital Signs: Last Vital Signs Temp 98 F 12/12/20 17:09 Pulse 84 12/12/20 17:09 Resp 18 12/12/20 17:09 BP 131/73 12/12/20 17:09 Pulse Ox 98 12/12/20 17:09 Body Mass Index 29.6 Const: General: cooperative, healthy appearing, comfortable and no acute distress Orientation/consciousness: patient oriented x3 HENMT: Face and sinus: Yes normal facial exam Mouth: moist mucous membranes Neck: Neck: Yes normal visual inspection, Yes full ROM and Yes trachea midline Chest: Chest palpation & inspection: normal inspection of the chest Resp: Effort & Inspection: normal respiratory effort, able to speak in complete sentences and no respiratory distress GI: Inspection: Yes normal to inspection Back/Spine/Pelvis: Cervical Spine: normal cervical lordosis Thoracic/Lumbar Spine: thoracic and lumbar spine normal to inspection Skin: General skin exam: no rashes or lesions noted Neuro: General: patient oriented x3, gait normal, tone normal and moves all extremities Extrem: General: Yes normal to inspection and Yes capillary refill normal Results Labs Labs: All other labs normal. Assessment and Plan (1) Dislodged Burnett catheter: Status: Acute (2) Bladder neck contracture: Status: Acute Catheter repositioned and catheter cap placed Procedures Date of Service Date of Service: 12/12/20
[2020-12-12 19:06] LABS: MANUAL DIFF FLAG NO
[2020-12-12 19:09] LABS: Basophils Percent Auto 0.2 % (0-2); Eosinophils Absolute Auto 0.7 X10*3/uL (0.0-0.4); Eosinophils Percent Auto 4.7 % (0-4); Hematocrit 34.3 % (42-52); Hemoglobin 10.3 g/dl (14.0-18.0); Imm Gran Abs Auto 0.06 X10*3/uL (0.00-0.03); Imm Gran Pct Auto 0.4 % (0.0-0.4); Lymphocytes Percent Auto 14.3 % (20-40); Mean Corpuscular Volume 83.3 fL (80-98); Mean Platelet Volume 11.8 fL (9.4-12.4); Monocytes Percent Auto 7.5 % (2-11); Neutrophils Absolute Auto 10.1 X10*3/uL (2.0-8.3); Neutrophils Percent Auto 72.9 % (45-73); Platelet Count 196 X10*3/uL (160-400); Red Blood Count 4.12 X10*6/uL (4.60-5.80); Red Cell Distribution Width 14.1 % (11.0-16.0); White Blood Count 13.9 X10*3/uL (4.8-10.8)
[2020-12-12 19:24] LABS: Alanine Aminotransferase 24 U/L (0-40); Albumin Level 3.6 g/dL (3.5-5.0); Alkaline Phosphatase 60 U/L (39-117); Anion Gap 14 (12-20); Aspartate Amino Transferase 21 U/L (5-37); Bilirubin Total 0.4 mg/dL (0.0-1.0); Blood Urea Nitrogen 47 mg/dL (9-16); Calcium 8.9 mg/dL (8.4-10.2); Carbon Dioxide 28 mmol/L (22-29); Chloride 103 mmol/L (96-108); Creatinine Clr Calc Pharmacy 30.1; Estimated Glomerular Filt Rate 30; Glucose Random 293 mg/dL (60-115); Potassium 5.1 mmol/L (3.3-5.1); Sodium 140 mmol/L (135-145); Total Protein 6.7 g/dL (6.5-8.0)
--- NOTE | 2020-12-12 23:07 | MHC.CM.ED ---
2300 Unable to meet with patient. Family home. CM will call daughter/HCP in am Evelio Rich ([phone]). Family requesting STR. PT evaluation placed for am. Pt speaks Sinhala. Daughter speaks Swedish. CM will follow for d/c needs.
[2020-12-12 23:50] VITALS: BP 148/81; PULSE 88; RESP 20; O2SAT 93
[2020-12-13] VITALS (9 sets, daily range): BP systolic 122–166; BP diastolic 54–80; PULSE 82–87; RESP 15–18; TEMP 36.6; O2SAT 94–99
[2020-12-13 08:51] LABS: Glucose, Whole Blood 130 mg/dL (60-115)
--- NOTE | 2020-12-13 11:20 | PHA.MEDREC ---
Pharmacy Consult ? Medication Reconciliation Pharmacy has completed the medication reconciliation. There are no remarkable issue for provider's attention. Patient had a list from the [facility]. Ana Paula Sullivan, EdinsonD
--- NOTE | 2020-12-13 13:15 | MHC.CM.ED ---
Patient remains in ER. Physical therapy eval completed. longterm care is recommended. Referral was broadcasted to all facilities with [address] of patient's address that are contracted with patients insurance. 23 referrals made. No bed offers made yet. Continue to monitor for d/c needs.
[2020-12-13 16:42] LABS: Glucose, Whole Blood 244 mg/dL (60-115)
--- NOTE | 2020-12-13 17:33 | MHC.CM.ED ---
Addendum entered by Radha Hollis 12/13/20 18:08: Referrals made with notice for retirement care. CM to follow for d/c needs. Addendum entered by Radha Hollis 12/13/20 17:52: Pt has [employer] insurance. Pt can go to SNF under retirement care. Spoke with Evelio. She approves of this plan. Explained that CM would need to look for SNF 25 miles out. Evelio is agreeable to this. This respite will allow family to make some arrangements for more care at home. Evelio will visit her father tomorrow. Will have careport and contact information for elder services for her. CM to follow for d/c needs. Original Note: CM reviewed [facility], no beds available. [facility] Following. Spoke with daughter/HCP Evelio Rich and discussed PT recommendations for LTC and that 23 referrals have been placed. Evelio aware that [facility] is following. CM questioned if pt understood what was asked of him during PT evaluation, as pt primarily speaks Arabic. She states he understands a bit of [place], but that he has late stage Syphillis and that she believes he does not understand, even in his [place] language. Evelio is not sure at this time if she wants her father in LTC. Reviewed options for help at home. Evelio will speak with her family and with insurance about help. Also referred Evelio to [facility] and [facility] to see if her father qualifies for any help at home. Evelio will make a decision in the am. Given CM contact information.
--- NOTE | 2020-12-13 19:46 | PC.NURSE ---
PATIENT WAS GIVEN A HOSPITAL BED .
--- NOTE | 2020-12-13 19:47 | PC.NURSE ---
PATIENT ATE 75 % OF DINNER HAD TWO CARTON OF MILK
--- NOTE | 2020-12-13 19:48 | PC.NURSE ---
PATIENT OUT PUT WAS 1000 ML URINE
--- NOTE | 2020-12-13 19:49 | PC.NURSE ---
PATIENT WAS GIVEN A COMPLETE BED BATH .
[2020-12-13 21:43] LABS: Glucose, Whole Blood 315 mg/dL (60-115)
[2020-12-13] MEDS: hydrALAZINE HCl 25 MG TABLET PO (23:35)
[2020-12-13] MEDS: carvediloL 25 MG TABLET PO (23:37)
[2020-12-13] MEDS: Bumetanide 1 MG TABLET 2 MG PO (23:37)
[2020-12-13] MEDS: Insulin Glargine,Hum.rec.anlog 100 UNIT/ML 10 ML VIAL 35 UNIT SUBCUT (23:38)
[2020-12-13] MEDS: Omeprazole 20 MG CAPSULE.DR PO (23:38)
[2020-12-14] VITALS (7 sets, daily range): BP systolic 95–120; BP diastolic 35–72; PULSE 75–92; RESP 14–16; TEMP 36.4–37; O2SAT 93–97
--- NOTE | 2020-12-14 00:31 | PC.NURSE ---
PT is incontinent of stool in bed. PT cleaned with wipes and eusebio sheet changed. PT is resting quietly in bed at this time.
--- NOTE | 2020-12-14 08:49 | MHC.CM.ED ---
Patient remains in ER. No bed offers have been made. Referral has been broadcasted within 50 miles of patient's residence. Continue to monitor for d/c needs.
[2020-12-14 10:03] LABS: Glucose, Whole Blood 158 mg/dL (60-115)
[2020-12-14] MEDS: hydrALAZINE HCl 25 MG TABLET PO (10:04)
[2020-12-14] MEDS: lisinopriL 40 MG TABLET PO (10:04)
[2020-12-14] MEDS: carvediloL 25 MG TABLET PO (10:04)
[2020-12-14] MEDS: Cholecalciferol (Vitamin D3) 25 MCG TABLET PO (10:04)
[2020-12-14] MEDS: Levothyroxine Sodium 50 MCG TABLET PO (10:04)
[2020-12-14] MEDS: Bumetanide 1 MG TABLET 2 MG PO (10:04)
--- NOTE | 2020-12-14 10:44 | MHC.CM.ED ---
Bed offers have been made by: [facility], [facility], [facility], and [facility]. Options discussed with patient's daughter, Evelio via telephone at [phone]. Evelio is accepting bed at [facility]. [facility] aware and will obtain insurance auth. Continue to monitor for d/c needs.
[2020-12-14 11:51] LABS: Glucose, Whole Blood 217 mg/dL (60-115)
--- NOTE | 2020-12-14 14:01 | MHC.CM.ED ---
Insurance auth has been obtained by [facility]. Patient can leave at 230pm. [facility] booked. Patient, daughter Emani Fraser RN and Ginny MNOIQUE aware. Continue to monitor for d/c needs.
[2020-12-14] MEDS: SITagliptin Phosphate 50 MG TABLET PO (14:03)
== END 2020-12-14 17:11 | disposition skilled nursing facility (03) ==
PROVIDERS: Physician Assistant; Emergency Provider Emergency Medicine Emergency Medical Services; PCP Internal Medicine
DX: N32.0 Bladder-neck obstruction (principal); T83.84XA Pain due to genitourinary prosthetic devices, implants and grafts, initial encounter; Y73.8 Miscellaneous gastroenterology and urology devices associated with adverse incidents, not elsewhere classified; Y92.239 Unspecified place in hospital as the place of occurrence of the external cause; I12.9 Hypertensive chronic kidney disease with stage 1 through stage 4 chronic kidney disease, or unspecified chronic kidney disease; E11.22 Type 2 diabetes mellitus with diabetic chronic kidney disease; N18.9 Chronic kidney disease, unspecified; Z79.899 Other long term (current) drug therapy
CPT/HCPCS: 36415; 80053; 82947; 85025; 96374; 97162; 99284; 99285